=== PATIENT | male | born 1950 | race Caucasian/White ===

== ENCOUNTER 2024-08-19 06:50 | Emergency (ER) | payer OTHER, SELFPAY ==
[2024-08-19 07:03] VITALS: BP 160/68; PULSE 84; TEMP 36.7; O2SAT 96; BMI 50.9
--- NOTE | 2024-08-19 07:25 | CT_ITS ---
The [address] [address] Patient Name: JANET CRUZ MRN: [id number] date: 1950 Sex: M Assigned Patient Location: ER Current Patient Location: ED.[facility] Accession/Order Number: [id number] Exam Date: 08/19/2024 08:00 Report Date: 08/19/2024 08:43 At the request of: LAURO MORRIS Procedure: CT abdomen pelvis w con EXAM: CT abdomen pelvis w con HISTORY: LLQ pain COMPARISON: None. TECHNIQUE: Following intravenous administration of 100 cc of Omnipaque 300, axial soft tissue windows of the abdomen and pelvis were performed with coronal and sagittal reformats. CT dose reduction technique was used including Automated Exposure Control. Findings: Minimal bilateral basilar atelectasis. ABDOMEN: The liver, spleen, pancreas, and adrenal glands are unremarkable. The gallbladder is surgically absent. No renal stones or collecting system dilatation. Bilateral renal cysts. The largest is within the right kidney measuring approximately 6.1 cm. The bilateral ureters are nondilated. Evaluation of the bowel is limited given the absence of oral contrast. There are colonic diverticula. There is a short segment of sigmoid wall thickening with adjacent stranding in the fat consistent with acute diverticulitis. No abscess or microperforation. No bowel obstruction. The appendix is nondilated. The aorta is normal caliber. Mild atherosclerotic disease. No enlarged abdominal lymph nodes or free abdominal fluid. Pelvis: Circumferential bladder wall thickening likely relates to lack of effusion. No bladder calculi. No enlarged pelvic lymph nodes or free pelvic fluid. The prostate is nonenlarged. No aggressive sclerotic or lytic osseous lesions. Grade 1 anterolisthesis of L4 on L5. Mild multilevel degenerative spondylosis. CT/CT abdomen pelvis w con IMPRESSION: 1. Acute sigmoid diverticulitis. 2. Other nonemergent findings, as described above. Electronically authenticated by: ARGELIA BHARDWAJ Date: 08/19/2024 08:43
[2024-08-19] MEDS: ONDANSETRON PF 4 MG/2 ML VIAL IV (07:33)
[2024-08-19] MEDS: KETOROLAC TROMETHAMINE 30 MG/ML VIAL 15 MG IVP (07:33)
[2024-08-19 07:35] LABS: Basophils Percent Auto 0.3 % (0.2-2.0); Eosinophils Absolute Auto 0.1 10^3/uL (0.0-0.7); Eosinophils Percent Auto 0.8 % (0.9-7.0); Hematocrit 36.2 % (42.0-54.0); Hemoglobin 12.3 g/dL (14.0-18.0); Immature Granulocytes Abs Auto 0.04 10^3/uL (0.00-0.03); Immature Granulocytes Pct Auto 0.4 % (0.0-0.5); Lymphocytes Absolute Auto 0.7 10^3/uL (1.2-3.8); Lymphocytes Percent Auto 7.8 % (20.5-60.0); Mean Corpuscular Hemoglobin 30.3 pg (25.9-34.0); Mean Corpuscular Volume 89.2 fL (80.0-94.0); Mean Platelet Volume 8.8 fL (9.5-13.5); Monocytes Absolute Auto 0.7 10^3/uL (0.3-0.8); Monocytes Percent Auto 8.2 % (1.7-12.0); Neutrophils Absolute Auto 7.4 10^3/uL (1.4-6.5); Neutrophils Percent Auto 82.5 % (43.0-75.0); Platelet Count 147 10^3/uL (150-450); Red Blood Count 4.06 10^6/uL (4.70-6.10); Red Cell Distribution Width 14.2 % (11.0-15.0)
[2024-08-19 07:47] LABS: Bilirubin Urine NEGATIVE (NEGATIVE); Blood Urine NEGATIVE (NEGATIVE); Clarity Urine CLEAR (CLEAR); Color Urine LT. YELLOW (YELLOW); Glucose Urine UA NEGATIVE (NEGATIVE); Ketones Urine NEGATIVE (NEGATIVE); Leukocyte Esterase Urine SMALL (NEGATIVE); Nitrite Urine POSITIVE (NEGATIVE); Protein Urine NEGATIVE (NEG/TRACE)
[2024-08-19 07:48] LABS: Urine Microscopic Indicated YES
[2024-08-19 07:52] LABS: Alanine Aminotransferase 20 U/L (16-63); Albumin Level 3.1 g/dL (3.4-5.0); Alkaline Phosphatase 75 U/L (46-116); Anion Gap 13.9; Aspartate Amino Transferase 15 U/L (15-37); Bilirubin Total 0.7 mg/dL (0.2-1.0); Calcium 8.2 mg/dL (8.5-10.1); Chloride 107 mmol/L (98-107); Estimated GFR (African America >60 (>=60 mL/min/1.73m^2); Estimated GFR (Non-African Ame >60 (>=60 mL/min/1.73m^2); Globulin 3.1 g/dL; Glucose 119 mg/dL (74-106); Potassium 3.9 mmol/L (3.5-5.1); Sodium 146 mmol/L (136-145); Total Protein 6.2 g/dL (6.4-8.2)
[2024-08-19 07:55] LABS: RBC Urine 0-2 #/HPF (0-2)
[2024-08-19 07:56] LABS: Bacteria Urine MODERATE #/HPF (NONE SEEN); Cast Seen? NONE SEEN #/LPF (NONE SEEN); Crystals Seen? None Seen #/HPF (None Seen); Mucus Urine NONE SEEN (NONE SEEN); Squamous Epithelial Cell Urine RARE #/LPF (NONE/RARE); Urine Culture Indicated YES
[2024-08-19 08:07] LABS: INR 1.88; Prothrombin Time 18.7 sec (9.0-11.6)
[2024-08-19 08:10] VITALS: BP 144/72; PULSE 86; O2SAT 96
[2024-08-19 09:08] VITALS: BP 146/88; PULSE 72; O2SAT 98
--- NOTE | 2024-08-19 12:15 | ED.ABDPAIN1 ---
HPI - Abdominal Pain General Chief Complaint: Abdominal Pain Stated Complaint: ABD GROIN PAIN Time Seen by Provider: 08/19/24 07:08 Mode of arrival: walk-in History of Present Illness HPI narrative: Patient presents ED complaining of left lower quadrant pain. He said it started last night and he had a hard time sleeping. He states he was up all night. He said yesterday he had some loose stools and his stool seemed more pale than normal. No blood in the stool no mucus in the stool. He is on Coumadin for history of Buerger's disease and said his INR was 5 this past Sunday when they checked his Coumadin. They changed his Coumadin regimen around to decrease his INR. He has not had any bleeding. Denies any fevers. He states that the testicle area feels a little weird as if the pain is radiating down to the testicles however no swollen testicles. He does have a history of kidney stones but states this feels different than kidney stones. No flank pain. No history of diverticulitis. Related Data Home Medications ?Medication ?Instructions ?Recorded ?Confirmed cilostazol 100 mg tablet 100 mg PO DAILY 08/19/24 08/19/24 dorzolamide 2 % eye drops 2 drp ophthalmic (eye) DAILY 08/19/24 08/19/24 hydrochlorothiazide 25 mg tablet 12.5 mg PO DAILY 08/19/24 08/19/24 latanoprost 0.005 % eye drops 1 drp ophthalmic (eye) QPM 08/19/24 08/19/24 lisinopril 30 mg tablet 30 mg PO DAILY 08/19/24 08/19/24 pravastatin 80 mg tablet 80 mg PO DAILY 08/19/24 08/19/24 trazodone 100 mg tablet 200 mg PO DAILY 08/19/24 08/19/24 venlafaxine 150 mg 150 mg PO BID 08/19/24 08/19/24 capsule,extended release 24 hr (Effexor XR) warfarin 5 mg tablet 5 mg PO DAILY 08/19/24 08/19/24 Previous Rx's ?Medication ?Instructions ?Recorded ciprofloxacin HCl 500 mg tablet 500 mg PO BID 10 days #20 tabs 08/19/24 (Cipro) metronidazole 500 mg tablet 500 mg PO Q12H 10 days #20 tabs 08/19/24 Allergies Allergy/AdvReac Type Severity Reaction Status Date / Time metronidazole (From Flagyl) AdvReac Severe Rash Verified 08/19/24 07:01 Review of Systems ROS Status of ROS 10 or more systems reviewed and unremarkable except as noted in history and below PFSH PFSH Social History Little interest or pleasure in doing things: not at all Feeling down, depressed, or hopeless: not at all Exam Narrative Exam Narrative: Time Seen: [] Vital Signs: [Per nurse's notes.] General: [Alert] Skin: [Warm, dry, no rash.] Head: [Normocephalic, atraumatic.] Neck: [Supple, trachea midline.] Eye: [Pupils are equal, round and reactive to light, extraocular movements are intact, normal conjunctiva.] Ears, nose, mouth and throat: oral mucosa moist. Cardiovascular: [Regular rate and rhythm, no murmur.] Respiratory: [Lungs are clear to auscultation, respirations are non-labored, breath sounds are equal.] Chest wall: [No tenderness, no deformity.] Gastrointestinal: [Soft, moderate left lower quadrant abdominal pain. No testicular pain or swelling on exam, non distended, normal bowel sounds.] MSK: 5 out of 5 muscle strength x 4 extremities no calf pain or edema Lymphatics: [No lymphadenopathy.] Psychiatric: [Cooperative, appropriate mood & affect.] Neurological: [Alert and oriented to person, place, time, and situation, no focal neurological deficit observed.] Constitutional Vital Signs, click to edit/add: Last Vital Signs Temp 98.1 F 08/19/24 07:03 Pulse 72 08/19/24 09:08 Resp 18 08/19/24 09:08 BP 146/88 H 08/19/24 09:08 Pulse Ox 98 08/19/24 09:08 O2 Del Method Room Air 08/19/24 07:03 Course Vital Signs Vital signs: Vital Signs Temperature 98.1 F 08/19/24 07:03 Pulse Rate 84 08/19/24 07:03 Respiratory Rate 18 08/19/24 07:03 Blood Pressure 160/68 H 08/19/24 07:03 Pulse Oximetry 96 08/19/24 07:03 Oxygen Delivery Method Room Air 08/19/24 07:03 Temperature 98.1 F 08/19/24 07:03 Pulse Rate 72 08/19/24 09:08 Respiratory Rate 18 08/19/24 09:08 Blood Pressure 146/88 H 08/19/24 09:08 Pulse Oximetry 98 08/19/24 09:08 Oxygen Delivery Method Room Air 08/19/24 07:03 MDM - Abdominal Pain MDM Narrative Medical decision making narrative: Patient's labs are relatively nonacute CT scan shows acute uncomplicated diverticulitis. No abscess no perforation. I discussed with pharmacist and with Dr. Ware antibiotic use given the fact that his INR has been labile recently. Since he has a Coumadin check on and will see Dr. Ware on or Sunday we decided to go with Bakari and Tiara at this time. I did tell the patient this can increase his INR and to please be very aware of any stool color changes or bleeding. Return to the emergency room if unable to keep the antibiotics down, if the pain is increasing too much or if he has bleeding. Follow-up on for his Coumadin check and see Dr. Ware or Sunday for a reevaluation. Patient and family are comfortable with care plan and will return to ED if worsening symptoms otherwise they will follow-up outpatient as scheduled. Differential Diagnosis Differential diagnosis: Likely abdominal pain, calculus of kidney, constipation, diverticulitis and small bowel obstruction Medical Records Attestation: I reviewed the patient's medical records. Lab Data Attestation: I reviewed the patient's lab results. Labs: Lab Results 08/19/24 08/19/24 08/19/24 Range/Units 07:10 07:28 07:50 WBC 9.0 (4.0-11.0) 10^3/uL RBC 4.06 L (4.70-6.10) 10^6/uL Hgb 12.3 L (14.0-18.0) g/dL Hct 36.2 L (42.0-54.0) % MCV 89.2 (80.0-94.0) fL MCH 30.3 (25.9-34.0) pg MCHC 34.0 (29.9-35.2) g/dL RDW 14.2 (11.0-15.0) % Plt Count 147 L (150-450) 10^3/uL MPV 8.8 L (9.5-13.5) fL Neut % (Auto) 82.5 H (43.0-75.0) % Lymph % (Auto) 7.8 L (20.5-60.0) % [place] % (Auto) 8.2 (1.7-12.0) % Eos % (Auto) 0.8 L (0.9-7.0) % Baso % (Auto) 0.3 (0.2-2.0) % Neut # (Auto) 7.4 H (1.4-6.5) 10^3/uL Lymph # (Auto) 0.7 L (1.2-3.8) 10^3/uL [place] # (Auto) 0.7 (0.3-0.8) 10^3/uL Eos # (Auto) 0.1 (0.0-0.7) 10^3/uL Baso # (Auto) 0.0 (0.0-0.1) 10^3/uL Abs Immat Gran (auto) 0.04 H (0.00-0.03) 10^3/uL Imm/Tot Granulo (auto) 0.4 (0.0-0.5) % PT 18.7 H (9.0-11.6) sec INR 1.88 Sodium 146 H (136-145) mmol/L Potassium 3.9 (3.5-5.1) mmol/L Chloride 107 (98-107) mmol/L Carbon Dioxide 29.0 (21.0-32.0) mmol/L Anion Gap 13.9 BUN 16.0 (7.0-18.0) mg/dL Creatinine 0.94 (0.70-1.30) mg/dL Est GFR ( Amer) >60 (>=60 mL/min/1.73m^2) Est GFR (Non-Af Amer) >60 (>=60 mL/min/1.73m^2) BUN/Creatinine Ratio 17.0 Glucose 119 H (74-106) mg/dL Calcium 8.2 L (8.5-10.1) mg/dL Total Bilirubin 0.7 (0.2-1.0) mg/dL AST 15 (15-37) U/L ALT 20 (16-63) U/L Alkaline Phosphatase 75 (46-116) U/L Total Protein 6.2 L (6.4-8.2) g/dL Albumin 3.1 L (3.4-5.0) g/dL Globulin 3.1 g/dL Albumin/Globulin Ratio 1.0 Urine Color Lt. yellow (YELLOW) Urine Clarity Clear (CLEAR) Urine pH 6.0 (5.0-9.0) Ur Specific [place] 1.020 (1.005-1.025) Urine Protein Negative (NEG/TRACE) mg/dL Urine Glucose (UA) Negative (NEGATIVE) mg/dL Urine Ketones Negative (NEGATIVE) mg/dL Urine Occult Blood Negative (NEGATIVE) Urine Nitrite Positive A (NEGATIVE) Urine Bilirubin Negative (NEGATIVE) Urine Urobilinogen 4.0 A (0.2-1.0) EU/dL Ur Leukocyte Esterase Small A (NEGATIVE) Urine RBC 0-2 (0-2) #/HPF Urine WBC 5-10 A (NONE SEEN) #/HPF Ur Squamous Epith Cells Rare (NONE/RARE) #/LPF Urine Crystals None seen (None Seen) #/HPF Urine Bacteria Moderate A (NONE SEEN) #/HPF Urine Casts None seen (NONE SEEN) #/LPF Urine Mucus None seen (NONE SEEN) Ur Culture Indicated? Yes Imaging Data CT scan - abdomen: Radiologist's impression: ITS Impressions Abdomen/Pelvis CT 08/19/24 07:25 IMPRESSION: 1. Acute sigmoid diverticulitis. 2. Other nonemergent findings, as described above. Electronically authenticated by: ARGELIA BHARDWAJ Date: 08/19/2024 08:43 Discharge Plan Discharge Chief Complaint: Abdominal Pain Clinical Impression: Diverticulitis, Acute UTI Patient Disposition: Home, Self-Care Time of Disposition Decision: 08:57 Condition: Fair Mode of Transportation: Private Vehicle Prescriptions / Home Meds: New ciprofloxacin HCl [Cipro] 500 mg tablet 500 mg PO BID 10 Days Qty: 20 0RF metronidazole 500 mg tablet 500 mg PO Q12H 10 Days Qty: 20 0RF No Action venlafaxine [Effexor XR] 150 mg capsule,extended release 24hr 150 mg PO BID pravastatin 80 mg tablet 80 mg PO DAILY cilostazol 100 mg tablet 100 mg PO DAILY lisinopril 30 mg tablet 30 mg PO DAILY hydrochlorothiazide 25 mg tablet 12.5 mg PO DAILY trazodone 100 mg tablet 200 mg PO DAILY dorzolamide 2 % drops 2 drp ophthalmic (eye) DAILY latanoprost 0.005 % drops 1 drp ophthalmic (eye) QPM warfarin 5 mg tablet 5 mg PO DAILY Print Language: Chinese Instructions: Diverticulitis (ED), Diverticulitis Diet (ED) Referrals: Jasper Ware MD [Primary Care Provider] - 1 week Discharge Date/Time: 08/19/24 09:09
== END 2024-08-19 09:09 | disposition home or self-care (01) ==
PROVIDERS: Emergency Provider Emergency Medicine; PCP Family Medicine
DX: N39.0 Urinary tract infection, site not specified (principal); K57.32 Diverticulitis of large intestine without perforation or abscess without bleeding; Z79.01 Long term (current) use of anticoagulants; N02.B1 Recurrent and persistent immunoglobulin A nephropathy with glomerular lesion; Z87.442 Personal history of urinary calculi
CPT/HCPCS: 36415; 74177; 80053; 81001; 85025; 85610; 87086; 87150; 87186; 96374; 96375; 99284; J1885; J2405; Q9967

== ENCOUNTER 2024-09-05 20:46 | Emergency (ER) | payer OTHER, SELFPAY ==
--- OUTSIDE RECORDS SUMMARY | 2024-09-05 20:52 | XMS_ITS | CCD ---
Author Organization [facility] Care Team Providers Care Coating Machine Helper Name Role Phone BROOKLYN LÓPEZ Admitting Unavailable BROOKLYN LÓPEZ Attending Unavailable ANNA WARE Primary Care Unavailable Anna Ware Primary Care Provider [phone] Jaki Cardoso Primary Care Physician Unavailab le GRANT ., DR CASTILLO Primary Care Unavailable HOY ., DR CASTILLO Admitting Unavailable HOY ., DR CASTILLO Attending Unavailable HOY ., DR CASTILLO Consulting Unavailable PAY ., DR LEYVA Consulting Unavailable SHAIKH Rick LOPEZ Consulting Unavailable JANET YARBROUGH Consulting Unavailable Karina Oneal Attending Unavailable SALAM, Azeem Attending Unavailable SALAM, Azeem Admitting Unavailable SALAM, Azeem Referring Unavailable SALAM, Azeem Attending Unavailable SALAM, Azeem Admitting Unavailable SALAM, Azeem Referring Unavailable SALAM, Azeem Attending Unavailable SALAM, Gann Admitting Unavailable SALAM, Gann Referring Unavailable Karina Oneal Attending Unavailable Karina Oneal Attending Unavailable Allergies Allergy Classification Reported Allergen(s) Allergy Type Date of Onset Reaction(s) Facility (2 sources) Adhesive Tape; Translations: [Adhesive tape] Propensity to adverse reactions to drug 9 Rash [place] (5 sources) metroNIDAZOLE; Translations: [metronidazole] Drug Allergy 9 Rash, Unknown (qualifier value) [place] (5 sources) Adhesive bandage; Translations: [Adhesive Bandage] Allergy to substance 9 Eruption of skin (disorder) [facility] (5 sources) cefOXitin; Translations: [cefoxitin] Drug Allergy Low blood pressure (disorder) [facility] (5 sources) Mushroom (edible); Translations: [Mushrooms] Food allergy Nasal congestion (finding) [facility] (2 sources) metroNIDAZOLE; Translations: [Flagyl] Drug Allergy 1 [facility] Repository Medications Current Medications Medication Drug Class(es) Dates Sig (Normalized) Sig (Original) Acetaminophen (4 sources) Start: 08-18-2022 acetaminophen PRN as needed for pain, Refills(s) 0 Start Date: 08/18/22 Status: Ordered Start: 08-18-2022 acetaminophen Refills(s) 0 Start Date: 08/18/22 Status: Ordered Acetaminophen / oxyCODONE (1 source) Opioid Agonist Start: 06-19-2019 End: 06-19-2019 oxyCODONE-acetaminophen (PERCOCET) 5-325 MG per tablet 1 tablet Amlodipine (5 sources) Dihydropyridine Calcium Channel Jeison Start: 08-18-2022 amlodipine Refills(s) 0, High blood pressure Start Date: 08/18/22 Status: Ordered Start: 08-18-2022 amlodipine Ref ills(s) 0 Start Date: 08/18/22 Status: Ordered End: 06-18-2019 take 1 tablet by mouth once daily amLODIPine (NORVASC) 10 MG tablet Take 10 mg by mouth daily 0 06/18/2019 Discontinued (Therapy completed) calcium chloride 0.0014 meq/ml / potassium chloride 0.004 meq/ml / sodium chloride 0.103 meq/ml / sodium lactate 0.028 meq/ml injectable solution (1 source) Start: 06-19-2019 lactated ringers infusion Cetirizine (1 source) Histamine-1 Receptor Antagonist take 1 tablet by mouth once daily as needed Cetirizine HCl (ZYRTEC PO) Take 1 tablet by mouth daily as needed 0 Active Cholecalciferol (1 source) Vitamin D take 1 tablet by mouth once daily CHOLECALCIFEROL PO Take 1 tablet by mouth daily 0 Active cilostazol (5 sources) Phosphodiesterase 3 Inhibitor Start: 08-18-2022 cilostazol Oral, BID, Refills(s) 0, Other (see comment) Start Date: 08/18/22 Status: Ordered Start: 08-18-2022 cilostazol Ref ills(s) 0 Start Date: 08/18/22 Status: Ordered take 1 tablet by gris once daily CILOSTAZOL PO Take 1 tablet by mouth daily 0 Active 1 ml diphenhydrAMINE hydrochloride 50 mg/ml cartridge (1 source) Histamine-1 Receptor Antagonist Start: 06-19-2019 End: 06-19-2019 diphenhydrAMINE (BENADRYL) injection 12.5 mg dorzolamide 20 mg/ml ophthalmic solution (1 source) Carbonic Anhydrase Inhibitor take 1 drop(s) into the eye(s) twice daily dorzolamide (TRUSOPT) 2 % ophthalmic solution Place 1 drop into both eyes 2 times daily 0 Active dorzolamide / Timolol (4 sources) Carbonic Anhydrase Inhibitor, beta-Adrenergic Jeison Start: 08-18-2022 dorzolamide-timolol ophthalmic Refill(s) 0, Ocular congestion Start Date: 08/18/22 Status: Ordered Start: 08-18-2022 dorzolamide-ti molol ophthalmic Refill(s) 0 Start Date: 08/18/22 Status: Ordered 2 ml fentaNYL 0.05 mg/ml injection (1 source) Opioid Agonist Start: 06-19-2019 fentaNYL (SUBL IMAZE) injection 25 mcg fondaparinux (4 sources) Factor Xa Inhibitor Start: 08-18-2022 fondaparin ux SubCutaneous, Daily, Refills(s) 0, Blood Thinner Start Date: 08/18/22 Status: Ordered Start: 08-18-2022 fondaparinux R efills(s) 0, Blood Thinner Start Date: 08/18/22 Status: Ordered Start: 08-18-2022 fondaparinux R efills(s) 0 Start Date: 08/18/22 Status: Ordered hydroCHLOROthiazide (4 sources) Thiazide Diuretic Start: 08-18-2022 hydrochlorot hiazide Refills(s) 0, High blood pressure Start Date: 08/18/22 Status: Ordered Start: 08-18-2022 hydrochlorothi azide Refills(s) 0 Start Date: 08/18/22 Status: Ordered 4 ml labetalol hydrochloride 5 mg/ml cartridge (1 source) beta-Adrenergic Jeison Start: 06-19-2019 labetalol (NORMODYNE;TRANDATE) injection 5 mg latanoprost (5 sources) Prostaglandin Analog Start: 08-18-2022 latanoprost ophthalmic Refill(s) 0, Ocular congestion Start Date: 08/18/22 Status: Ordered Start: 08-18-2022 latanoprost op hthalmic Refill(s) 0 Start Date: 08/18/22 Status: Ordered take 1 drop(s) into the eye(s) once daily latanoprost (XALATAN) 0.005 % ophthalmic solution Place 1 drop into both eyes nightly 0 Active Lisinopril (5 sources) Angiotensin Converting Enzyme Inhibitor Start: 08-18-2022 lisinopril Refills(s ) 0, High blood pressure Start Date: 08/18/22 Status: Ordered Start: 08-18-2022 lisinopril Ref ills(s) 0 Start Date: 08/18/22 Status: Ordered take 3 tablets by mo uth once daily lisinopril (PRINIVIL;ZESTRIL) 10 MG tablet Take 30 mg by mouth daily 0 Active 1 ml morphine sulfate 2 mg/ml cartridge (1 source) Opioid Agonist Start: 06-19-2019 morphine (PF) injection 2 mg 2 ml ondansetron 2 mg/ml injection (1 source) Serotonin-3 Receptor Antagonist Start: 06-19-2019 End: 06-19-2019 ondansetron (ZOFRAN) injection 4 mg polyethylene glycol 3350 [id number] mg / potassium chloride 1480 mg / sodium bicarbonate 5720 mg / sodium chloride 85676 mg powder for oral solution (1 source) Osmotic Laxative Start: 02-12-2023 NuLYTELY Yandy ry oral powder for reconstitution See Instructions, 2 EA, Refill(s) 0, See physician instructions prior to procedure., [facility], 170.1, cm, 01/29/23 9:08:00 EDT, Height/Length Dosing, 149.7, kg, 01/29/23 9:08:00 EDT, Weight Dosing Start Date: 02/12/23 Status: Ordered Pravastatin (5 sources) HMG-CoA Reductase Inhibitor Start: 08-18-2022 pravastatin Refills( s) 0, High cholesterol Start Date: 08/18/22 Status: Ordered Start: 08-18-2022 pravastatin Re fills(s) 0 Start Date: 08/18/22 Status: Ordered take 1 tablet by gris once daily PRAVASTATIN SODIUM PO Take 1 tablet by mouth daily 0 Active Trazodone (5 sources) Serotonin Reuptake Inhibitor Start: 08-18-2022 trazodone PRN Sleep, Refills(s) 0 Start Date: 08/18/22 Status: Ordered Start: 08-18-2022 trazodone Refi lls(s) 0 Start Date: 08/18/22 Status: Ordered traZODone (DESYR EL) 100 MG tablet Take 250 mg by mouth nightly 0 Active venlafaxine (5 sources) Serotonin and Norepinephrine Reuptake Inhibitor Start: 08-18-2022 venlafaxine Refills( s) 0, Depression Start Date: 08/18/22 Status: Ordered Start: 08-18-2022 venlafaxine Re fills(s) 0 Start Date: 08/18/22 Status: Ordered take 2 capsules by m outh once daily venlafaxine (EFFEXOR XR) 150 MG extended release capsule Take 300 mg by mouth daily 0 Active Warfarin (6 sources) Vitamin K Antagonist Start: 08-18-2022 warfarin Refills(s) 0, Blood Thinner Start Date: 08/18/22 Status: Ordered Start: 08-18-2022 warfarin Refil ls(s) 0 Start Date: 08/18/22 Status: Ordered warfarin (COUMAD IN) 10 MG tablet Take 12.5 mg by mouth daily tues only holding holdinh 06/17 0 Active take 2 tablets by pr uth once daily, then take [id number] tablet by mouth warfarin (COUMADIN) 7.5 MG tablet Take 15 mg by mouth daily All days except tues,holding preop since 06/18 0 Active Completed/Discontinued Medications Medication Drug Class(es) Dates Sig (Normalized) Sig (Original) cyclopentolate hydrochloride 10 mg/ml ophthalmic solution (1 source) Start: 06-19-2019 End: 06-19-2019 cyclopentolate (CYCLOGYL) 1 % ophthalmic solution 1 drop dexamethasone 1 mg/ml / tobramycin 3 mg/ml ophthalmic suspension (1 source) Aminoglycoside Antibacterial, Corticosteroid Start: 06-19-2019 End: 06-19-2019 tobramycin-dexameth asone (TOBRADEX) ophthalmic suspension 1 drop phenylephrine hydrochloride 100 mg/ml ophthalmic solution (1 source) alpha-1 Adrenergic Agonist Start: 06-19-2019 End: 06-19-2019 phenylephrine (ROLY-SYNEPHRINE) 10 % ophthalmic solution 1 drop Problems Active Problems Problem Classification Problem Date Documented Da te Episodic/Chronic Abdominal pain (4 sources) Abdominal pain 09-27-2022 Episodic Anxiety disorders (4 sources) Posttraumatic stress disorder 09-27-2022 Chronic Bacterial infection; unspecified site (1 source) Unspecified Escherichia coli [E. coli] as the cause of diseases classified elsewhere; Translations: [UNS E COLI CAUSE DX CLASS ELSEWHERE] Onset: 2022 Episodic Coagulation and hemorrhagic disorders (1 source) Activated protein C resistance; Translations: [ACTIVATED PROTEIN C RESISTANCE] Onset: 2022 Chronic Disorders of lipid metabolism (4 sources) Hyperlipidemia 09-27-2022 Chronic Diverticulosis and diverticulitis (4 sources) Diverticular disease 09-27-2022 Chronic Essential hypertension (5 sources) Hypertensive disorder; Translations: [Essential (primary) hypertension] Onset: 2022 09-27-2022 Chronic Hyperplasia of prostate (4 sources) Urinary urgency due to benign prostatic hypertrophy 09-27-2022 Chronic Other aftercare (1 source) Other long term care phlebotomist (current) drug therapy; Translations: [OTH LONG-TERM CURRENT DRUG THERAPY] Onset: 2022 Episodic Other aftercare (1 source) 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; Translations: [LONG-TERM CURRNT USE ANTICOAGULANTS] Onset: 2022 Episodic Other and unspecified benign neoplasm (6 sources) History of polyp of colon; Translations: [Personal history of colonic polyps] Onset: 11-10-2022 Episodic Other and unspecified benign neoplasm (1 source) Polyp of colon; Translations: [Polyp of colon] Onset: 04-23-2023 Episodic Other circulatory disease (4 sources) Thromboangiitis obliterans 09-27-2022 Chronic Other circulatory disease (4 sources) Vascular insufficiency 09-27-2022 Episodic Other gastrointestinal disorders (4 sources) Adhesion of intestine 09-27-2022 Episodic Other nervous system disorders (1 source) Difficulty in walking, not elsewhere classified; Translations: [DIFFICULTY IN WALKING NEC] Onset: 2022 Chronic Other nervous system disorders (1 source) Other chronic pain; Translations: [OTHER CHRONIC PAIN] Onset: 2022 Chronic Other nervous system disorders (4 sources) Abnormal gait 09-27-2022 Episodic Other nutritional; endocrine; and metabolic disorders (4 sources) Morbid obesity 09-27-2022 Chronic Other nutritional; endocrine; and metabolic disorders (1 source) Morbid (severe) obesity due to excess calories; Translations: [MORBID SEVERE OBES D/T EXCESS LYNN] Onset: 2022 Chronic Other nutritional; endocrine; and metabolic disorders (1 source) Body mass index (BMI) 45.0-49.9, adult; Translations: [BODY MASS INDEX BMI 45.0-49.9 ADULT] Onset: 2022 Chronic Residual codes; unclassified (4 sources) Sleep apnea 09-27-2022 Chronic Screening and history of mental health and substance abuse codes (1 source) Personal history of nicotine dependence; Translations: [PERSONAL HISTORY OF NICOTINE DEPEND] Onset: 2022 Episodic Unclassified (4 sources) Binge eating behavior 09-27-2022 Unclassified (3 sources) LOW BACK PAIN, UNSPECIFIED; Translations: [LOW BACK PAIN, UNSPECIFIED] Onset: 2022 Unclassified (1 source) CONTACT W/AND (SUSP) EXPOS COVID-19; Translations: [CONTACT W/AND (SUSP) EXPOS COVID-19] Onset: 2022 Urinary tract infections (1 source) Urinary tract infection, site not specified; Translations: [UTI SITE NOT SPECIFIED] Onset: 2022 Episodic Past or Other Problems Problem Classification Problem Date Documented Date Episodic/Chronic Retinal detachments; defects; vascular occlusion; and retinopathy (1 source) Rhegmatogenous retinal detachment - macula on; Translations: [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, left] Onset: 06-19-2019 06-19-2019 Episodic Unclassified (1 source) LOW BACK PAIN, UNSPECIFIED; Translations: [LOW BACK PAIN, UNSPECIFIED] Onset: 11-03-2022 Unclassified (1 source) Exposure to 2019 novel coronavirus; Translations: [Contact with and (suspected) exposure to COVID19] Results Test Name Value Interpretation Reference Range Facility IntraOperative Documentson 0 04-27-2023 IntraOperative Documents [id number] CD:127 [facility] Reminderson 04-27-2023 Reminders - From: Obey Zafar To: [facility] - Reminders/Recalls; Sent: 04/27/2023 09:59:23 EDT Show up: 04/07/2026 09:59:00 EDT Subject: Ambulatory Reminder Due Date/Time: 04/23/2026 09:59:00 EDT Reminder/Recall Repeat colonoscopy in 3 years(2025) due to tubular adenoma [facility] Result Letter Officeon 04-27 Result Letter Office (Inserted Image. Un able to display) April 27, 2023 JANET CRUZ [address] [place] [id number] : 1950 Below is a summary of the results of your recent colonoscopy. Your results have been sent to your primary care provider along with recommendations on when the procedure should be repeated. COLONOSCOPY WITH POLYP REMOVAL Type of polyp tubular adenoma x 1 - not cancer but can become cancer if not removed. Additional colonoscopies will be necessary to monitor your condition and assure that new polyps have not developed. multiple lipomas in the transverse and ascending colon Based on your results we are recommending you repeat the procedure in 3 years You will be placed in our reminder system and will receive a reminder letter prior to your next due date. [facility] [phone] Normal [facility] Consenton 04-25-2023 Consent [id number] D:127 Normal [facility] Discharge Instructionson Discharge Instructions [id number] D:127 Normal [facility] Main OR Intraoperative Recor don 04-24-2023 Main OR Intraoperative Record IntraOp Document Type FT Summary Primary Physician: Azeem HARPER MD Finalized Date/Time: 04/24/23 07:14:24 Pt. Name: JANET CRUZ D.O.B./Sex: 1950 Male Med Rec #: [id number] Physician: Azeem HARPER MD Financial #: [id number] Pt. Type: O Room/Bed: Endo 03/08 Admit/Disch: 04/23/23 00:01:00 - 04/23/23 11:25:00 Institution: Case Times FT Entry 1 Patient Times In Room 04/23/23 10:35:00 Out Room 04/23/23 10:54:00 Procedure Times Start 04/23/23 10:39:00 Stop 04/23/23 10:52:00 Anesthesia Times Start 04/23/23 10:35:00 Stop 04/23/23 10:54:00 Time at [facility] 04/23/23 10:45:00 Last Modified By: Lexii Sims CST 04/24/23 07:14:22 General Comments: 04/24/23 Chart opened to review and send charges LRoth CSFA Case Attendance FT Entry 1 Entry 2 Entry 3 Case Attendee Paul VEGA, Stephanie Gan, Ileana Prado Role Performed Retail Event Assistant - Primary Scrub - Primary Staff - Other Time In 04/23/23 10:35:00 04/23/23 10:35:00 04/23/23 10:35:00 Time Out 04/23/23 10:55:00 04/23/23 10:55:00 04/23/23 10:55:00 Procedure COLONOSCOPY(.) COLONOSCOPY(.) COLONOSCOPY(.) Comments Last Modified By: Paul VEGA, Stephanie Miller RN, Stephanie Evangelista RN 04/23/23 10:55:23 04/23/23 10:55:23 04/23/23 10:55:23 Entry 4 Entry 5 Entry 6 Case Attendee MEREDITH POE, Azeem Arcos WIRE SPIRAL BINDER, Malena Hutchins DNP, WIRE SPIRAL BINDER, Mejia N. Role Performed Surgeon - Primary WIRE SPIRAL BINDER WIRE SPIRAL BINDER Time In 04/23/23 10:35:00 04/23/23 10:35:00 04/23/23 10:40:00 Time Out 04/23/23 10:55:00 04/23/23 10:42:00 04/23/23 10:55:00 Procedure COLONOSCOPY(.) COLONOSCOPY(.) COLONOSCOPY(.) Comments Dr. Garcia is Anesthesia relief, Dr. summersing Jose is supervising Last Modified By: Paul VEGA, Stephanie Miller RN, Lexii Hope CST 04/23/23 10:55:23 04/23/23 10:55:23 04/24/23 07:12:52 Perioperative Protocols FT Pre-Care Text: Implements protective measures prior to operative or invasive procedure, confirms identity before the operative or invasive procedure, verifies operative procedure, surgical site, and laterality Entry 1 Procedure(s) COLONOSCOPY(.) Patient Identity Birthday, ID Band Verified (select at Check, Patient least 2): Participation Consents / H and P Anesthesia Consent, Operative Site N/A Verified HandP, Surgery/Procedure Marking Verified Consent Surgical Site No Laterality Verified n/a Verified Procedure Verified Yes Correct Patient Yes Position Verified Availability Equipment, Medication Prep Dry No Verified (If Applicable) PreOp Antibiotic No Time Out Stephanie Miller RN, Given Participants Divya Gan Sparks, Micala E, Azeem HARPER MD, Deppen CRNA, Denise S. Time Out Complete 04/23/23 10:37:00 Outcomes Met? Yes Last Modified By: Stephanie Miller RN 04/23/23 10:37:52 Post-Care Text: The patient is free from signs and symptoms of injury caused by extraneous objects Allergy Information FT Pre-Care Text: Verifies allergies Entry 1 Allergies Reviewed? Yes Allergies Reviewed Self/Patient With Outcomes Met? Yes Last Modified By: Stephanie Miller RN 04/23/23 10:38:05 Post-Care Text: The patient received appropriate medication(s) safely administered during the perioperative period Surgical Procedures FT Entry 1 Procedure Description Procedure COLONOSCOPY Modifiers . Surgeon Description Colonoscopy with rectal polyp injected with everlift and removed with hot snare. X2 hemmoclips applied to post rectal polypectomy site. Primary Procedure Yes Primary Surgeon Azeem HARPER MD Start 04/23/23 10:39:00 Stop 04/23/23 10:52:00 Anesthesia Type General Surgical Service Gastroenterology Wound Class 2 - Clean-Contaminated Last Modified By: Lexii Sims CST 04/24/23 07:13:10 General Case Data FT Pre-Care Text: Classifies surgical wound, implements aseptic technique, initiates traffic control Entry 1 Case Information OR ENDO 1 FT Case Level Level 2 Wound Class 2 - Clean-Contaminated Specialty Gastroenterology ASA Class 3 Preop Diagnosis History of colon polyps Postop Same As Preop No Postop Diagnosis Ascending colon lipoma, Outcomes Met? Yes transverse colon lipoma, rectal polyp, internal hemorrhoids Last Modified By: Stephanie Miller RN 04/23/23 10:52:36 Post-Care Text: The patient is free from signs and symptoms of infection Skin Assessment (Pre Procedure) FT Pre-Care Text: Implements protective measures to prevent skin/ tissue injury due to thermal or mechanical sources Evaluates for signs and symptoms of physical injury to skin and tissue Entry 1 Skin Integrity Intact, [place], Warm, and Skin Abnormality No Dry Outcomes Met? Yes Last Modified By: Stephanie Miller RN 04/23/23 10:38:44 Post-Care Text: The patient is free from signs and symptoms of injury caused by extraneous objects Patient Positioning FT Pre-Care Text: Identifies physical alterations that require ad (more content not included)... Normal [facility] Consent for Treatmenton 04-07 Consent for Treatment [id number] D:127 Normal [facility] Discharge Instructionson Discharge Instructions NANCY JANET :1950 Visit Date:04/23/2023 Inpatient Discharge Instructions Your Care Team Admitting Physician - Azeem HARPER MD Referring Physician - Azeem HARPER MD Reason for Your Visit HX OF COLON POLYPS Your Diagnosis Colon polyp Tests Performed Pathology Tissue Exam -- Results Pending -- Please visit your patient portal for your results or contact your primary care physician. This Is Your Medications List acetaminophen amlodipine cilostazol dorzolamide-timolol ophthalmic fondaparinux hydrochlorothiazide latanoprost ophthalmic lisinopril pravastatin trazodone venlafaxine warfarin Procedure History Colonoscopy (01/29/2023), Colonoscopy. Discharge Vitals Temperature (Temporal Artery) 36.6 ?C Heart Rate (Monitored) 71 Respiratory Rate 23 Blood Pressure 126/77 Height 170.1 cm Weight 149.7 kg What to do next Instructions From Your Doctor Event Name Event Result Discharge Instructions Freetext Resume Coumadin and bridging treatment today Discharge Activity Resume normal activities in 24 hours Discharge Restrictions No driving for 24 hrs, Do not operate machinery or tools, Do not make important decisions for 24 hours Discharge Diet(s) Regular Pharmacy Information [facility] Discharge Instructions Discharge Instructions New Follow Up Appointments after Discharge Follow Up with Azeem HARPER When: Within 1 to 2 weeks Comments: Call for any problems. Where: [address] [place] [address] [employer] (1) Medications What How Much When Instructions Next Dose Unchanged acetaminophen As needed for as needed for pain Unchanged amlodipine Unchanged cilostazol 2 times a day Unchanged dorzolamide-timolol ophthalmic Unchanged fondaparinux Every day Unchanged hydrochlorothiazide Unchanged latanoprost ophthalmic Unchanged lisinopril Unchanged pravastatin Unchanged trazodone As needed for Sleep Unchanged venlafaxine Unchanged warfarin Test Results No qualifying data available. Allergies Adhesive Bandage (Eruption) Flagyl (Unknown) Mushrooms (Nasal congestion) cefOXitin (Hypotension) Problems Ongoing - Any problem that you are currently receiving treatment for. Abdominal pain in male Adhesion of intestine Benign prostatic hyperplasia (BPH) with urinary urgency Binge eating Diverticulosis History of amputation of hallux History of colon polyps HLD (hyperlipidemia) HTN (hypertension) Morbid obesity PTSD (post-traumatic stress disorder) Sleep apnea Thromboangiitis obliterans Unsteady gait Venous insufficiency Devices Implanted/Removed This Visit Notice: You have devices implanted this visit that may not be MRI compatible. Implanted Undefined Procedure Body Site Undefined CAUTERY ERBE UNIT 04/23/2023 Education Materials Lipoma A lipoma is a noncancerous (benign) tumor that is made up of fat cells. This is a very common type of soft-tissue growth. Lipomas are usually found under the skin (subcutaneous). They may occur in any tissue of the body that contains fat. Common areas for lipomas to appear include the back, arms, shoulders, buttocks, and thighs. Lipomas grow slowly, and they are usually painless. Most lipomas do not cause problems and do not require treatment. What are the causes? The cause of this condition is not known. What increases the risk? You are more likely to develop this condition if: ? You are 40?60 years old. ? You have a family history of lipomas. What are the signs or symptoms? A lipoma usually appears as a small, round bump under the skin. In most cases, the lump will: ? Feel soft or rubbery. ? Not cause pain or other symptoms. However, if a lipoma is located in an area where it pushes on nerves, it can become painful or cause other symptoms. How is this diagnosed? A lipoma can usually be diagnosed with a physical exam. You may also have tests to confirm the diagnosis and to rule out other conditions. Tests may include: ? Imaging tests, such as a CT scan or an MRI. ? Removal of a tissue sample to be looked at under a microscope (biopsy). How is this treated? Treatment for this condition depends on the size of the lipoma and whether it is causing any symptoms. ? For small lipomas that are not causing problems, no treatment is needed. ? If a lipoma is bigger or it causes problems, surgery may be done to remove the lipoma. Lipomas can also be removed to improve appearance. Most often, the procedure is done after applying a medicine that numbs the area (local anesthetic). ? Liposuction may be done to reduce the size of the lipoma before it is removed through surgery, or it may be done to remove the lipoma. Lipomas are removed with this method to limit incision size and scarring. A liposuction tube is inserted through (more content not included)... [facility] Comment on above: Result Comment: Elec tronically Signed By: Eulogio VEGA, Yari\.br\Date and Time Signed: 04/23/23 11:03 EDT Endoscopic Procedure Report - Otheron 04-23-2023 Endoscopic Procedure Report - Other Patient: JANET CRUZ Age: 72 years Sex: Male : 1950 Associated Diagnoses: None Author: Azeem HARPER MD Pre-Procedure Procedure Date 04/23/2023 10:54:00 . Procedure Type: Colonoscopy with removal of tumor(s), polyp(s), or other lesion(s) by cold snare technique. Procedure provider Performed by Azeem Harper MD. Current history and physical Documented on chart. Colorectal neoplasm risk assessment Average risk. Informed Consent After discussing the rationale, risks and benefits, and alternatives to this procedure, the patient provided signed consent for the procedure. Pre-procedure diagnosis: History of colon polyps. Medications Anticoagulant/antiplate let Coumadine . ASA Classification: Class III. . Procedure The procedure was performed in the hospital. Rectal exam was performed and was normal with no masses palpated. The patient was positioned in the left lateral decubitus position and a digital rectal exam was performed.. Endoscope type used was an adult-size. The endoscope was lubricated then introduced through the anus. The scope was advanced to the cecum verified by photographing the appendiceal orifice, verified by photographing the ileocecal valve, verified by transillumination, The time to the cecum was 6 minutes, The withdrawal time was 7 minutes. No difficulties encountered during the procedure. The bowel preparation quality was adequate (see polyps greater than or equal to 6 millimeters). The patient tolerated the procedure well. Findings 1. Multiple lipomas in the ascending and transverse colon 2. Flat polyp, 3 mm, in the rectum, removed completely with hot snare after submucosal lifting, 2 clips placed at polypectomy site 3 very small nonbleeding internal hemorrhoids Images Procedure images: [email or web address]_[email or web address]__[id number].jpg [id number]_hd_video__1 [id number].jpg [id number]_hd_video__1 [id number].jpg Rec1_hd_video__1 [id number].jpg . Post-Procedure Complications: none. Estimated blood loss: none. Specimens: sent to pathology. Devices/ implants: none left in place. Impression and Plan 1. Multiple lipomas in the ascending and transverse colon 2. Flat polyp, 3 mm, in the rectum, removed completely with hot snare after submucosal lifting, 2 clips placed at polypectomy site 3 very small nonbleeding internal hemorrhoids Recommendations: Repeat colonoscopy:: In 3 years, Pending pathology results. Follow-up:: Clinic follow-up in 1-2 weeks. Diet:: Resume previous diet. Medication resumption:: Continue current medications. Return to activities:: After 24 hours. [facility] Comment on above: Result Comment: Elec tronically Signed By: MEREDITH POE, Azeem\.br\Date and Time Signed: 04/23/23 10:56 EDT Other Comment: Mariza horn Attachment - attachment storage system not supported [id number] Can be viewed in source systemMissing Attachment - attachment storage system not supported [id number] Can be viewed in source systemMissing Attachment - attachment storage system not supported [id number] Can be viewed in source systemMissing Attachment - attachment storage system not supported [id number] Can be viewed in source system Main OR PACU I Recordon 04-07 Main OR PACU I Record PACU Phase I Document Type FT Summary Primary Physician: Azeem HARPER MD Finalized Date/Time: 04/23/23 12:03:47 Pt. Name: NANCYJANET D.O.B./Sex: 1950 Male Med Rec #: [id number] Physician: Azeem HARPER MD Financial #: [id number] Pt. Type: O Room/Bed: [facility] 03/08 Admit/Disch: 04/23/23 00:01:00 - 04/23/23 11:25:00 Institution: Case Times PACU I FT Pre-Care Text: Identifies barriers to communication and implements measures to provide psychological support Develops individualized plan of care, and ensures continuity of care Maintains patient's dignity and privacy, and maintains patient confidentiality Identifies and reports philosophical, cultural, and spiritual beliefs and values Identifies individual values and wishes concerning care Implements aseptic technique, and administers prescribed antibiotic therapy and immunizing agents as ordered Evaluates postoperative tissue perfusion Implements thermoregulation measures, and monitors body temperature Evaluates postoperative respiratory status Evaluates postoperative cardiac status Evaluates postoperative neurological status Assesses pain control, collaborated in initiating patient-controlled analgesia and implements alternative methods of pain control Verifies allergies, administers prescribed medications and solutions, evaluates response to medications Entry 1 In PACU I 04/23/23 10:55:00 Discharge from PACU 04/23/23 11:25:00 I Outcomes Met? Yes Last Modified By: Yari Krishnan RN 04/23/23 12:03:29 Post-Care Text: The patient demonstrates knowledge of the expected response to the operative or invasive procedure The patient's care is consistent with the individualized perioperative plan of care The patient's right to privacy is maintained The patient's value system, lifestyle, ethnicity, and culture are considered, respected, and incorporated into the perioperative plan of care The patient participates in decisions affecting his or her perioperative plan of care The patient is free from signs and symptoms of infection The patient has wound/tissue perfusion consistent with or improved from baseline levels established preoperatively The patient is at or returning to normothermia at the conclusion of the immediate postoperative period The patient's respiratory function is consistent with or improved from baseline levels established preoperatively The patient's cardiovascular status is consistent with or improved from baseline levels established preoperatively The patient's cardiovascular status is consistent with or improved from baseline levels established preoperatively The patient demonstrates and/or reports adequate pain control throughout the perioperative period The patient received appropriate medication(s), safely administered during the perioperative period Acuity Level PACU I FT Entry 1 Start Time 04/23/23 10:55:00 Stop Time 04/23/23 11:25:00 Acuity Level Acuity Level I Last Modified By: Yari Krishnan RN 04/23/23 12:03:43 Finalized By: Yari Krishnan RN Document Signatures Signed By: Yari Krishnan RN 04/23/23 12:03 Normal [facility] Main OR Preoperative Recordo n 04-23-2023 Main OR Preoperative Record Holding Area Document Type FT Summary Primary Physician: Azeem HARPER MD Finalized Date/Time: 04/23/23 10:35:29 Pt. Name: JANET CRUZ/Sex: 1950 Male Med Rec #: [id number] Physician: Azeem HARPER MD Financial #: [id number] Pt. Type: O Room/Bed: [facility] 03/08 Admit/Disch: 04/23/23 00:01:00 - Institution: Case Times Holding FT Pre-Care Text: Verifies consent for planned procedure, identifies individual values and wishes concerning care, includes family members in perioperative teaching Secures patient's records' belongings, and valuables, maintains patient's dignity and privacy, and maintains patient confidentiality Entry 1 In Holding 04/23/23 10:10:00 Outcomes Met? Yes Last Modified By: Briana Vergara RN 04/23/23 10:12:31 Post-Care Text: The patient participates in decisions affecting his or her perioperative plan of care The patient's right to privacy is maintained Surgery Checklist FT Entry 1 Patient Birthday, ID Band Procedure History and Physical, Identification: Check, Patient Verification: Surgical Consent, With Participation Patient NPO after Midnight: Yes Personal Items: Cataract Lens Implant, Glasses Personal Items Glassess, bilat IOL Limitations: Vision Comment: Complaints of Pain: No Pain Comment: Denies Operative Site n/a Availability Equipment Marking: Verified: Does Patient Smoke No Patient states Yes Comment - Adult Shani- postop adult Supervision supervision available Case Cancelled in No Holding Area see comments below for reason Last Modified By: Briana Vergara RN 04/23/23 10:22:17 Finalized By: Briana Vergara RN Document Signatures Signed By: Briana Vergara RN 04/23/23 10:35 Normal [facility] Monitor Recordon 04-23-2023 Monitor Record [id number] CD:127 Normal [facility] Monitor Record [id number]#[id number] CD:127 [facility] Patient Education - Texton 0 04-23-2023 Patient Education - Text Colonoscopy Care After Surgery Please read the instructions outlined below and refer to this sheet in the next few weeks. These discharge instructions provide you with general information on caring for yourself after you leave the hospital. Your doctor may also give you specific instructions. While your treatment has been planned according to the most current medical practices available, unavoidable complications occasionally occur. If you have any problems or questions after discharge, please call your doctor. ACTIVITY You may resume your regular activity, but move at a slower pace for the next 24 hours. Take frequent rest periods for the next 24 hours. Walking will help get rid of the air and reduce the bloated feeling in your abdomen (belly). No driving for 24 hours (because of the anesthesia (medicine) used during the test). You may shower. Do not sign any important legal documents or operate any machinery for 24 hours (because of the anesthesia used during the test). NUTRITION Drink plenty of fluids. You may resume your normal diet as instructed by your doctor. Begin with a light meal and progress to your normal diet. Heavy or fried foods are harder to digest and may make you feel nauseated (sick to your stomach). Avoid alcoholic beverages for 24 hours or as instructed. MEDICATIONS You may resume your normal medications unless your doctor tells you otherwise. WHAT YOU CAN EXPECT TODAY Some feelings of bloating in the abdomen. Passage of more gas than usual. Spotting of blood in your stool or on the toilet paper. FOLLOW-UP Your doctor will discuss the results of your test with you. SEEK IMMEDIATE MEDICAL ATTENTION IF: There is more than a spotting of blood in your stool. There is abdominal distention (your abdomen is swollen). There is vomiting. You have a temperature over 101.5 F. There is abdominal pain or discomfort that is severe or gets worse throughout the day. Dermatology Lipoma A lipoma is a noncancerous (benign) tumor that is made up of fat cells. This is a very common type of soft-tissue growth. Lipomas are usually found under the skin (subcutaneous). They may occur in any tissue of the body that contains fat. Common areas for lipomas to appear include the back, arms, shoulders, buttocks, and thighs. Lipomas grow slowly, and they are usually painless. Most lipomas do not cause problems and do not require treatment. What are the causes? The cause of this condition is not known. What increases the risk? You are more likely to develop this condition if: ? You are 40?60 years old. ? You have a family history of lipomas. What are the signs or symptoms? A lipoma usually appears as a small, round bump under the skin. In most cases, the lump will: ? Feel soft or rubbery. ? Not cause pain or other symptoms. However, if a lipoma is located in an area where it pushes on nerves, it can become painful or cause other symptoms. How is this diagnosed? A lipoma can usually be diagnosed with a physical exam. You may also have tests to confirm the diagnosis and to rule out other conditions. Tests may include: ? Imaging tests, such as a CT scan or an MRI. ? Removal of a tissue sample to be looked at under a microscope (biopsy). How is this treated? Treatment for this condition depends on the size of the lipoma and whether it is causing any symptoms. ? For small lipomas that are not causing problems, no treatment is needed. ? If a lipoma is bigger or it causes problems, surgery may be done to remove the lipoma. Lipomas can also be removed to improve appearance. Most often, the procedure is done after applying a medicine that numbs the area (local anesthetic). ? Liposuction may be done to reduce the size of the lipoma before it is removed through surgery, or it may be done to remove the lipoma. Lipomas are removed with this method to limit incision size and scarring. A liposuction tube is inserted through a small incision into the lipoma, and the contents of the lipoma are removed through the tube with suction. Follow these instructions at home: ? Watch your lipoma for any changes. ? Keep all follow-up visits. This is important. Where to find more information ? OrthoInfo: orthoinfo.aaos.org Contact a health care provider if: ? Your lipoma becomes larger or hard. ? Your lipoma becomes painful, red, or increasingly swollen. These could be signs of infection or a more serious condition. Get help right away if: ? You develop tingling or numbness in an area near the lipoma. This could indicate that the lipoma is causing nerve damage. Summary ? A lipoma is a noncancerous tumor that is made up of fat cells. ? Most lipomas do not cause problems and do not require treatment. ? If a lipoma is bigger or it causes problems, surgery may be done to remove the lipoma. ? Contact a health care provider if your lipoma becomes larger or hard, or if it becomes painf (more content not included)... Normal [facility] Pre-Certification Formon Pre-Certification Form [id number] D:127 Normal [facility] Progress Note-Physicianon Progress Note-Physician Patient: JANET CRUZ Age: 72 years Sex: Male : 1950 Associated Diagnoses: None Author: Jose POE, Luis Antonio Mi Postoperative Information Postoperative disposition: Postoperative disposition: To PACU. Optimetrix number: Optimetrix number [id number]. Anesthetic utilized: General. Physical Examination Vital Signs 04/23/2023 11:20 EDT Heart Rate Monitored 63 bpm Respiratory Rate Monitored 12 br/min Systolic Blood Pressure 139 mmHg Diastolic Blood Pressure 87 mmHg Blood Pressure Location Left arm Mean Arterial Pressure, Cuff 104 mmHg SpO2 97 % 04/23/2023 11:10 EDT Heart Rate Monitored 67 bpm Respiratory Rate Monitored 15 br/min Systolic Blood Pressure 144 mmHg HI Diastolic Blood Pressure 86 mmHg Blood Pressure Location Left arm Mean Arterial Pressure, Cuff 105 mmHg SpO2 95 % 04/23/2023 11:05 EDT Heart Rate Monitored 63 bpm Respiratory Rate Monitored 12 br/min Systolic Blood Pressure 133 mmHg Diastolic Blood Pressure 72 mmHg Blood Pressure Location Left arm Mean Arterial Pressure, Cuff 92 mmHg SpO2 96 % 04/23/2023 11:00 EDT Heart Rate Monitored 64 bpm Respiratory Rate Monitored 17 br/min Systolic Blood Pressure 124 mmHg Diastolic Blood Pressure 65 mmHg Blood Pressure Location Left arm Mean Arterial Pressure, Cuff 85 mmHg SpO2 96 % 04/23/2023 10:55 EDT Temperature Temporal Artery 36.6 DegC Heart Rate Monitored 71 bpm Respiratory Rate Monitored 23 br/min Systolic Blood Pressure 126 mmHg Diastolic Blood Pressure 77 mmHg Blood Pressure Location Left arm Mean Arterial Pressure, Cuff 93 mmHg SpO2 96 % Pain Assessment: Pain Assessment 04/23/2023 11:20 EDT Numeric Pain Scale 0 = No pain . General: Awake, Alert, Appropriate. Respiratory: Adequate air exchange, Equal bilateral chest wall expansion. Cardiovascular: Stable. Neurological: At Baseline. Assessment Anesthetic outcome No anesthetic complications noted. Review / Management Condition: Stable. Plan Transfer/Discharge: Transfer/Discharge Discharge when meets criteria ( To home ). [facility] Comment on above: Result Comment: Elec tronically Signed By: Luis Antonio Garcia MD\.br\Date and Time Signed: 04/23/23 12:21 EDT Progress Note-Physician Patient: JANET CRUZ Age: 72 years Sex: Male : 1950 Associated Diagnoses: None Author: Luis Antonio Garcia MD Preoperative Information Anesthesia Preop Info: Time patient last ate or drank 04/23/2023 07:00:00. Anesthesia history: Patient history: None. Family history+: None. Informed consent: Signed by patient. Including risks, benefits, and alternatives related to the: Anesthetic plan. Re-evaluation prior to induction: Luis Antonio Garcia MD. Initial evaluation reviewed: No significant change. Review of Systems Eye: Negative. Ear/Nose/Mouth/Throat: Negative. Respiratory: Negative. Cardiovascular: Negative. Gastrointestinal: Negative. Genitourinary: Negative. Hematology/Lymphatics: Negative. Endocrine: Negative. Musculoskeletal: Negative. Neurologic: Negative. Health Status Allergies: Allergies (4) Active Reaction Adhesive Bandage Eruption cefOXitin Hypotension Flagyl Unknown Mushrooms Nasal congestion Current medications: Home Medications (12) Active acetaminophen , PRN amlodipine cilostazol , Oral, BID dorzolamide-timolol ophthalmic fondaparinux , SubCutaneous, Daily hydrochlorothiazide latanoprost ophthalmic lisinopril pravastatin trazodone , PRN venlafaxine warfarin , Medications (1) Active Scheduled: (0) Continuous: (1) Sodium Chloride 0.9% 1,000 mL 1,000 mL, IV, 20 mL/hr PRN: (0) Problem list: All Problems Abdominal pain in male / SNOMED CT 89100326 / Confirmed Adhesion of intestine / SNOMED CT 91079087 / Confirmed Benign prostatic hyperplasia (BPH) with urinary urgency / SNOMED CT 2384017287 / Confirmed Binge eating / SNOMED CT 2512391614 / Confirmed Diverticulosis / SNOMED CT 1501169682 / Confirmed History of amputation of hallux / SNOMED CT 6456789407 / Confirmed History of colon polyps / SNOMED CT 7058875649 / Confirmed HLD (hyperlipidemia) / SNOMED CT 17413742 / Confirmed HTN (hypertension) / SNOMED CT 0374829851 / Confirmed Morbid obesity / SNOMED CT 138316693 / Confirmed PTSD (post-traumatic stress disorder) / SNOMED CT 36472114 / Confirmed Sleep apnea / SNOMED CT 651758854 / Confirmed Thromboangiitis obliterans / SNOMED CT 50713998 / Confirmed Unsteady gait / SNOMED CT 52397158 / Confirmed Venous insufficiency / SNOMED CT 890140785 / Confirmed, Active Problems (15) Abdominal pain in male Adhesion of intestine Benign prostatic hyperplasia (BPH) with urinary urgency Binge eating Diverticulosis History of amputation of hallux History of colon polyps HLD (hyperlipidemia) HTN (hypertension) Morbid obesity PTSD (post-traumatic stress disorder) Sleep apnea Thromboangiitis obliterans Unsteady gait Venous insufficiency Histories Social History Social & Psychosocial Habits Tobacco 11/10/2022 Tobacco Use: Never (less than 100 in l Smokeless tobacco use: Never . Physical Examination Vital Signs 04/23/2023 10:22 EDT Temperature Temporal Artery 36.7 DegC Heart Rate Monitored 68 bpm Respiratory Rate 16 br/min Systolic Blood Pressure 184 mmHg HI Diastolic Blood Pressure 79 mmHg Blood Pressure Location Left arm SpO2 97 % Measurements from flowsheet : Measurements 04/23/2023 10:11 EDT Height/Length Measured 170.1 cm Height/Length Dosing 170.1 cm Weight Dosing 149.7 kg Weight Measured 149.7 kg Airway: Mallampati classification: II (soft palate, fauces, uvula visible). Distance: Thyromental, Adequate, thick neck. Respiratory: Lungs are clear to auscultation, Symmetrical chest wall expansion. Cardiovascular: Regular rhythm, Good pulses equal in all extremities. Gastrointestinal: Soft, Non-tender. Plan [place] [employer] (ASA) physical status classification: Class III. Anesthetic Preoperative Plan: Anesthesia General. [facility] Comment on above: Result Comment: Elec tronically Signed By: Jose POE, Luis Antonio Mi\.br\Date and Time Signed: 04/23/23 10:37 EDT Intra[employer] Documentson 0 02-02-2023 Intra[employer]ative Documents [id number]#[id number] 0CD:127 [facility] Coding Summary.on 01-31-2023 Coding Summary. CD:[id number] Ww+ PGhlYWQ+SF5JVUVjI26pdIH thH7dJ5WZHZyQZxwjZRDULY hYYzKurgCzQL6pxIWmGOIt IC8+YD0iKRXuNotvsCBof7R 0cLI8A22wnz9kXRwoiHT1KI GsQuMwhioyl9tfeTs1TRhfZ mluOyBt WKUybR06SSM2yJ75Od49kDJ wzQYrp7vuwAr2HnQdFAZePX J9cWheDYuiv4UmGLXdA08ux CQni4Q3 BSPylLjjvTAvBvIkxXX5rQ3 nMOsdqhgml1rpbivpKga4dz 26tCOcg7U5nTF9H3RadrQ6W GJvbGQg GgboyWVDmT1itafjn5lkeko dLyVmSRTtIDc5XRm4DHEcpK ltPpFfYJ46LRJ3CGBnrnMrH 2FsLWFs sCyzSdS9m1W5Eb9OO4HSMpb vH5WQTPDYIOkqnTJ+PC90cj 40E7RbEayyNzj1LEXtFXT0q PH7xR2f DVVxNAfdi5W0lHV3B4WyxeN dwb5si8yrZWVrLFjxG58eoC Clu9U4CAPyiXD3QUEbaPpsL iBzaG93 Oyc+YZNqnVwlu4AmFwrwj2d xk9iabUb1VylwMQKbweKxuA ejVNN4u1NrEi6oNTMoqEU0t OP1rY5z DpQsBzP6NDuuI726KeVddTO lHmoqX18sT1VwlRR+PHRyPj f9VEVssYseUK8oA4XaMBIei mctbGVm sWvbDM5kQMLgbmvcGEBtyE2 jAQLgX8t9RkDrGoC7HRfvV3 NiNPVilifzKy67vQ1jBsWzJ kV8YKsi W4UzhtK5PMKxwSLcCMpsVSO 7T26aa9Z2FIFnUULsIJX1nQ B4eL0opWmekrkrgDPzhDewe mVydGlj XNnmIVwlG041CKUmrCenJjY vZGluZyBEYXRlOiAgMDQvMj YvMjAyMzwvdGQ+BOOzLAE6j WxlPSAn eKYxKRpzEl2hsZrwgNvpCI0 fYKWretawBJYrwZ5jCLKomA RvyOowGC3tLHLbvflbw565C iAxMHB0 ROIxoCYiD6KxtK9iMdTrGGD vLNLqY4BhjNCvWHaoQ191XD rpXzE5VMQyfhFuM9RiFIPzm WduOiB0 j5O6Xj7Vu1OovuutZ9RiaWH nVtUnUwwcSVg6E4LoMspklQ I+HS81SZYjDY73WXm3WJS6y WxlPSdi JCUjH9JapY8xHaByHCXbOWO kOyc+PHRhYmxlIHdpZHRoPS ugISYzDzJqkBlnAE6lOs7dA GVyLWNv lZtjfLPvVnBqs3wrMNCeAGg tDP1jkTegP2QhmTS5OXLfp2 k3Vp78J88rO9UptJG+PGNvb MH7qQW6 fI6tQoTwVqM2XLezM019ZjD bxEIaEnwbn5ybq8dwkXz5Gw C8FQZrwpLrkAkwOSK8e1ZrN g29F45p IHdpZHRoPSIxNSUiIHZhbGl ktr7ooV8zZm9+SFExgHS8mF L6hP1pKdGwSwC4QNqnJ082G nRvcCIv Vyzyw4yub2cqlDh2JmRlFUJ wnkWdwFhkRVD5r4SgHe13K8 EdhOffu6WyImt1hy53oEHro 4X1tBL9 Z4XtQNPtasfpdGAofQfvWI6 lPVMcoeriJIPakP3cWFDaP6 z8RzMcDjW3JHapC9UpbiH9P GJvbGQg EDPhiNORdO0fsoynj7pvbyr iEmZcWBSuONm5DIr3KHFebJ itMnLcJLV9CyD6DZX3oTTap R9zdTri ulnhiH8pGqs+PZO7zLSfyBV GOF3cErwraXL+NNWuFLA3nU ukOOhuVJGodP7vGUVkN0x1K iAwLjA1 IVeuD5KvdlN7KRRkoXWwGTU paWUYaQ6xymlzb1ntzmycAk VgSYGzGCj3YJd2BYHjoOvuZ iBsZWZ0 DpJ6JJS8nFObgR7cqDinain lgG0kXmx+LvbegKfgHQZ6SB l4S4AnWxs3QEKzwTanNI2pp GFkZGlu Vs2umVkepIpxJL5wQLJuium jf778BlYql1mhGMWyvFSdNH rxVKP5P88gn3L9PXKgTZWhI GJ5vXJ6 jB5ukOwjmkcbzDAbxFqiayG poWoxHPfyXIynB636TPDhnP rdZtTvSXs2E3CgYhy5QRIfq NxpLI8e vGXzYKpiVi4zyNwjwRnnKR3 qJESaedebb934PnXag5krKG FysKWtFMiaDLL3V83zk2J2E CMwMDAw CVA8uCD4eF0gfIsuwljecME mdDsgdmVydGljYWwtYWxpZ2 60GAQmeHdxWgCtdYs0H3ZeM gy6DSPp xVzaFM9dsJElBDkyTw8egQe ezYwzKF9oVFPzdcxjb043Eg Kmf7kqZFSlpOQyBWdpOUM4X 68sq7L4 GTZiGNBePLO9xYF7qB0tvIk nbjogbGVmdDsgdmVydGljYW ifONshU549AVXurBafAyZkd GllbnQg QQimLFf0Q0FdBkcqbUN+PC9 1NBHfSW86yLFsyMHby2wbbE z0SvDdJVMoHBV9jBrpRLzgw 3JkZXIt A17kzQKpf7U5SHDwsBoypXR kVkJenOD5wQ3nQXfypspgz8 wiusknPtfsc6gwdd43cN19M 29sIHdp ZHRoPSIzMCUiIHZhbGlnbj0 eiC3tSf0+FPQhzYJ1jUL2xT 5fPQMjFgL4YRajQ010FoMru CIvPjxj l7qwt0cyvCl8PwT0MPYenoV khZpaTXL6y9UaYx06G69tTR dpZHRoPSIyMCUiIHZhbGlnb x6euC4v Ii8+DZNscRC5vKQ8jF7sNzI mSeA6SHjrY082ZwNwxSBbXx wiL07zL9WjoJE+JKKoMmn0Y CBzdHls TC1lnACyPIwrGo6gGBW8AxV bQqFfKIptM4DpQBNomvhzsb fqhWU7UMWkBQTqzC57Ma9ir DogMTBw fWQEhX6xomuay6qobrcjYxM sUAOdYIo2GXu4TNRawSfuJv NbYBS1RvO3FBG5wSDatR3wn Glnbjog xG8xW1ZuALUhzhetIs77nX7 qHiYuWaS3XIfdEsj+SEVSTU FOLCBEQVZJRDwvdGQ+PHRkI WW9tImi YClkJBVisV0iVFPoF1s7MlD pHaH6LAdrC6QiIXFvdcgeBr 81eT3pWjImMoA3NVjeH5Rdw lH6EVVw zHWbTZzpRKQ7U23ho6B0BTW hDAQqQJE1nDD7aF3ekVvwip ogbGVmdDsgdmVydGljYWwtY WvzT371 VAFphQciPdIgJfOvApF7HIJ 5F4TpXil7PTJhfHnlJM8fzH XjYCoaHc5qlVbegYtxGP5oZ TBpbjtw TTIxqQ0iYCRnaYGzkNgoAX8 lIFTvonxuh103WvQxUYD9XV DyeGDtS4HprS0nGbUpKJRhW RYdG1Bf hVYwBHwgA315XUzaTvV2KHW pmxSeD1NqUREfsWwbUcY3u4 A1Wa47FECWCFIylfpjdWY+P HRkIHN0 xAqlKHkkWISchE6uHNZaR9b 9TrVjWqD7TYwlT5QhFVNcfa cjWb83eX3oYmWlRfL8HWqwP 2MrgzY3 HVGyjSKuIEzkKIH3X16np1M 2EEQmSELbOHN7wWO0hR4pjS lnbjogbGVmdDsgdmVydGljY WwtYWxp X589OJUuyIciTu6orVK8W5K vMej8XXFohYmbKB0giOIcGV tiQi5mjOjehKzyRS5nFWWev jtwYWRk uE9jNJXvkVHadAsfAA1rWXP fycdts477FcZzJOM6NZVmpY JmZ1BhiD5iNrTlRIMbXHKqJ 3RleHQt OUybW933LAlsLgC2JSKtblK aS9EvFASiyTqcDcG6n4W0Op 6OaVDsQZGaUV73GR91IY16E 3RyPjwv dGFibGU+PHRhYmxlIHdpZHR oOAadNPLrJkChfGbfRJ1cQh 9yZGVyLWNvbGxhcHNlOiBjb 2xsYXBz UHjcAC1rwQesU5ZykFN8DTT kw3l1Nn40T72pY2GkiYD+PG ZjxWC0cCR9yF2dLsBaDwJ1B OsvI258 TuLjqIMgZxeox7nld8motWb 8CkXsIGLgjnHihVliFGV7d7 CxZc53V28zCIsbUEJrLEUcW CUiIHZh fXeayj7smI0yLe8+PGNvbCB 4tYB7zK4tBcNkMkP5YJplM1 06KlOgcLVrFqfoA88hO7Omn XA+PHRy Yoo8KMAcwXbuMO2lrXKdGQk cUb6aZIR2RlEiLyXyNQpjX1 StJEZeoetmueajbXO8VRTsZ DUwaW47 It5euRaxZq9hARQfQRF6FGE luYOnB3EdjE5dRpBhIHLpPE GmP7GxgVWyODuzZ189SDchV uU3TOJr ofKeO9FfZZOokCrcTsD3q4Z 4Ie4ZeHmguMAvYX2qCcSzNN a3N2XyQne8ZFBziQbpRK7he GFkZGlu Ua2kmOeakOygLN5rDENssbp zw394BqHxi7smIZYhdFNaVU ojMUB3W76fl9W5YWHvBUVpO JS1aWV2 wS5eqDrbjcalmJCphBussrR hmQctOBbvCAenG101HBCukF fjJkLLAfg7I6YxMhi8WUQps NcdZM1t tMLoQJrcPu7hyBrxnQfnVT4 tBUFqzfogm989RlSjw8gkOE KjiVToEIixKOY4H77wy6K8S CMwMDAw RYK4xAO1mI0qeWxxvimnwQM mdDsgdmVydGljYWwtYWxpZ2 74XGFmnAlrAx4YRsx2N9ObQ kc1SJYe hFklYB7eqGVwSNzaJa8egSt wpZtzMH6bOEOfnwipw690Vh Jpa5ajOWThnYExBWdcWNM7B 61yr3P4 NRVbSIFzIRJ6iIH1dK6slUe nbjogbGVmdDsgdmVydGljYW nxLNrtQ622KMEgeEwnGoQxj WVyOjwv dGQ+AB81tr76L1LxJgabDel 5MAEyEJB6iXR1zQ5xQUTjHP ayp2T9kMJ0V8WtriHhvn7fs 2xsYXBz VJliE06p (more content not included)... Normal [facility] Consenton 01-31-2023 Consent [id number] CD:127 Normal [facility] Discharge Instructionson Discharge Instructions [id number] CD:127 Normal [facility] Postoperative Documentson Postoperative Documents [id number] CD:127 Normal [facility] Main OR Intraoperative Recor don 01-30-2023 Main OR Intraoperative Record IntraOp Document Type FT Summary Primary Physician: Azeem HARPER MD Finalized Date/Time: 01/30/23 13:12:06 Pt. Name: JANET CRUZ/Sex: 1950 Male Med Rec #: [id number] Physician: Azeem HARPER MD Financial #: [id number] Pt. Type: O Room/Bed: / Admit/Disch: 01/29/23 08:23:25 - 01/29/23 23:59:59 Institution: Case Times FT Entry 1 Patient Times In Room 01/29/23 09:42:00 Out Room 01/29/23 09:48:00 Procedure Times Start 01/29/23 09:46:00 Stop 01/29/23 09:46:00 Anesthesia Times Start 01/29/23 09:42:00 Stop 01/29/23 09:48:00 Last Modified By: Donell Sheth RN 01/29/23 09:49:23 General Comments: Colonoscopy not completed due to poor bowel prep MSRN 01/30/23 Chart opened to review and send charges [facility]FA Case Attendance FT Entry 1 Entry 2 Entry 3 Case Attendee Jose POE, Luis Antonio Sheth RN, Donell Black DIE MAINTENANCE, Sandra Joseph Role Performed Anesthesiologist of Retail Event Assistant - Primary Scrub - Primary Record Time In 01/29/23 09:42:00 01/29/23 09:42:00 01/29/23 09:42:00 Time Out 01/29/23 09:48:00 01/29/23 09:48:00 01/29/23 09:48:00 Procedure COLONOSCOPY(.) COLONOSCOPY(.) COLONOSCOPY(.) Comments Last Modified By: Domenic VEGA, Donell Sheth RN, Donell Sheth RN, Donell Mcmahon 01/29/23 09:49:25 01/29/23 09:49:25 01/29/23 09:49:25 Entry 4 Case Attendee Azeem HARPER MD Role Performed Surgeon - Primary Time In 01/29/23 09:42:00 Time Out 01/29/23 09:48:00 Procedure COLONOSCOPY(.) Comments Last Modified By: Donell Sheth RN 01/29/23 09:49:25 Perioperative Protocols FT Pre-Care Text: Implements protective measures prior to operative or invasive procedure, confirms identity before the operative or invasive procedure, verifies operative procedure, surgical site, and laterality Entry 1 Procedure(s) COLONOSCOPY(.) Patient Identity Birthday, ID Band Verified (select at Check, Patient least 2): Participation Consents / H and P Anesthesia Consent, Operative Site N/A Verified HandP, Surgery/Procedure Marking Verified Consent Surgical Site No Laterality Verified n/a Verified Procedure Verified Yes Correct Patient Yes Position Verified Availability Equipment, Medication Prep Dry n/a Verified (If Applicable) PreOp Antibiotic No Time Out Luis Antonio Garcia MD Given Participants S., Donell Sheth RN, Schafer DIE MAINTENANCE, MEREDITH Anderson MD, Maher Time Out Complete 01/29/23 09:45:00 Outcomes Met? Yes Last Modified By: Donell Sheth RN 01/29/23 09:46:43 Post-Care Text: The patient is free from signs and symptoms of injury caused by extraneous objects Allergy Information FT Pre-Care Text: Verifies allergies Entry 1 Allergies Reviewed? Yes Allergies Reviewed Self/Patient With Outcomes Met? Yes Last Modified By: Donell Sheth RN 01/29/23 09:44:20 Post-Care Text: The patient received appropriate medication(s) safely administered during the perioperative period Surgical Procedures FT Entry 1 Procedure Description Procedure COLONOSCOPY Modifiers . Surgeon Description Colonoscopy Primary Procedure Yes Primary Surgeon Azeem HARPER MD Start 01/29/23 09:46:00 Stop 01/29/23 09:46:00 Anesthesia Type General Surgical Service Gastroenterology Wound Class 2 - Clean-Contaminated Last Modified By: Donell Sheth RN 01/29/23 09:48:58 General Comments: Colonoscopy incomplete due to poor prep General Case Data FT Pre-Care Text: Classifies surgical wound, implements aseptic technique, initiates traffic control Entry 1 Case Information OR ENDO 1 FT Case Level Level 2 Wound Class 2 - Clean-Contaminated Specialty Gastroenterology ASA Class 3 Preop Diagnosis History of colon polyps Postop Same As Preop No Postop Diagnosis Colonoscopy incomplete Outcomes Met? Yes due to poor prep Last Modified By: Lexii Sims CST 01/30/23 13:12:01 Post-Care Text: The patient is free from signs and symptoms of infection Skin Assessment (Pre Procedure) FT Pre-Care Text: Implements protective measures to prevent skin/ tissue injury due to thermal or mechanical sources Evaluates for signs and symptoms of physical injury to skin and tissue Entry 1 Skin Integrity Dry, Warm Skin Abnormality No Outcomes Met? Yes Last Modified By: Donell Sheth RN 01/29/23 09:45:30 Post-Care Text: The patient is free from signs and symptoms of injury caused by extraneous objects Patient Positioning FT Pre-Care Text: Identifies physical alterations that require additional precautions for procedure-specific positioning, verifies presence of prosthetics or corrective devices, positions the patient, evaluates the patient for signs and symptoms of injury as a result of positioning Entry 1 Procedure COLONOSCOPY(.) Body Position Lateral, right side up Feet Uncrossed? Yes Left Arm Position Resting at Side Right Arm Position Resting at Side Left Leg Position Extended Right Leg Position Extended Posi (more content not included)... Normal [facility] Consent for Treatmenton 01-07 Consent for Treatment [id number] D:127 Normal [facility] Discharge Instructionson Discharge Instructions NANCY JANET :1950 Visit Date:01/29/2023 Inpatient Discharge Instructions Your Care Team Admitting Physician - Azeem HARPER MD Referring Physician - Azeem HARPER MD Reason for Your Visit HISTORY OF COLON POLYPS Your Diagnosis History of colon polyps This Is Your Medications List acetaminophen amlodipine cilostazol dorzolamide-timolol ophthalmic fondaparinux hydrochlorothiazide latanoprost ophthalmic lisinopril pravastatin trazodone venlafaxine warfarin Procedure History Colonoscopy. Discharge Vitals Temperature (Temporal Artery) 36.4 ?C Heart Rate (Monitored) 73 Respiratory Rate 12 Blood Pressure 115/68 Height 170.1 cm Weight 149.7 kg BMI 51.74 What to do next Instructions From Your Doctor Event Name Event Result Discharge Instructions Freetext Repeat colonoscopy due 2 days. Discharge Activity Resume normal activities in 24 hours Discharge Restrictions No driving for 24 hrs, Do not operate machinery or tools, Do not make important decisions for 24 hours Discharge Diet(s) Regular Discharge Instructions Discharge Instructions New Follow Up Appointments after Discharge Follow Up with Azeem HARPER When: Comments: Call Office to arrange 2 day Prep and repeat colonoscopy less than 3 months Where: [address] [place] [address] Business (1) Medications What When Instructions Next Dose Unchanged acetaminophen As needed for as needed for pain Unchanged amlodipine Unchanged cilostazol Unchanged dorzolamide-timolol ophthalmic Unchanged fondaparinux Unchanged hydrochlorothiazide Unchanged latanoprost ophthalmic Unchanged lisinopril Unchanged pravastatin Unchanged trazodone As needed for Sleep Unchanged venlafaxine Unchanged warfarin Test Results No qualifying data available. Allergies Adhesive Bandage (Eruption) Flagyl (Unknown) Mushrooms (Nasal congestion) cefOXitin (Hypotension) Problems Ongoing - Any problem that you are currently receiving treatment for. Abdominal pain in male Adhesion of intestine Benign prostatic hyperplasia (BPH) with urinary urgency Binge eating Diverticulosis History of amputation of hallux History of colon polyps HLD (hyperlipidemia) HTN (hypertension) Morbid obesity PTSD (post-traumatic stress disorder) Sleep apnea Thromboangiitis obliterans Unsteady gait Venous insufficiency Education Materials Colonoscopy Care After Surgery Please read the instructions outlined below and refer to this sheet in the next few weeks. These discharge instructions provide you with general information on caring for yourself after you leave the hospital. Your doctor may also give you specific instructions. While your treatment has been planned according to the most current medical practices available, unavoidable complications occasionally occur. If you have any problems or questions after discharge, please call your doctor. ACTIVITY You may resume your regular activity, but move at a slower pace for the next 24 hours. Take frequent rest periods for the next 24 hours. Walking will help get rid of the air and reduce the bloated feeling in your abdomen (belly). No driving for 24 hours (because of the anesthesia (medicine) used during the test). You may shower. Do not sign any important legal documents or operate any machinery for 24 hours (because of the anesthesia used during the test). NUTRITION Drink plenty of fluids. You may resume your normal diet as instructed by your doctor. Begin with a light meal and progress to your normal diet. Heavy or fried foods are harder to digest and may make you feel nauseated (sick to your stomach). Avoid alcoholic beverages for 24 hours or as instructed. MEDICATIONS You may resume your normal medications unless your doctor tells you otherwise. WHAT YOU CAN EXPECT TODAY Some feelings of bloating in the abdomen. Passage of more gas than usual. Spotting of blood in your stool or on the toilet paper. FOLLOW-UP Your doctor will discuss the results of your test with you. SEEK IMMEDIATE MEDICAL ATTENTION IF: There is more than a spotting of blood in your stool. There is abdominal distention (your abdomen is swollen). There is vomiting. You have a temperature over 101.5 F. There is abdominal pain or discomfort that is severe or gets worse throughout the day. Colonoscopy Care After Surgery Please read the instructions outlined below and refer to this sheet in the next few weeks. These discharge instructions provide you with general information on caring for yourself after you leave the hospital. Your doctor may also give you specific instructions. While your treatment has been planned according to the most current medical practices available, unavoidable complications occasionally occur. If you have any problems or questio (more content not included)... Normal [facility] Comment on above: Result Comment: Elec tronically Signed By: Demetria Shen RN\.br\Date and Time Signed: 01/29/23 10:02 EDT Endoscopic Procedure Report - Otheron 01-29-2023 Endoscopic Procedure Report - Other Patient: JANET CRUZ Age: 72 years Sex: Male : 1950 Associated Diagnoses: None Author: Azeem HARPER MD Pre-Procedure Procedure Date 01/29/2023 09:46:00 . Procedure Type: Colonoscopy. Procedure provider Performed by Azeem Harper MD. Current history and physical Documented on chart. Colorectal neoplasm risk assessment Average risk. Informed Consent After discussing the rationale, risks and benefits, and alternatives to this procedure, the patient provided signed consent for the procedure. Pre-procedure diagnosis: History of colon polyps. Medications Anticoagulant/antiplate let None. Antibiotic prophylaxis Not indicated. ASA Classification: Class II. . Procedure The procedure was performed in the hospital. Rectal exam was performed and was normal with no masses palpated. The patient was positioned in the left lateral decubitus position and a digital rectal exam was performed.. Endoscope type used was an adult-size. The endoscope was lubricated then introduced through the anus. The scope was advanced to the sigmoid colon. The procedure was aborted. The bowel preparation quality was inadequate. The patient tolerated the procedure well. Findings Aborted procedure at the sigmoid level secondary to poor prep. Post-Procedure Complications: none. Estimated blood loss: none. Specimens: none. Devices/ implants: none left in place. Impression and Plan Aborted procedure at the sigmoid level secondary to poor prep. Recommendations: Repeat colonoscopy:: In less than 3 months, Next available with 2 days prep . Follow-up:: Clinic follow-up in 1-2 weeks. Diet:: Resume previous diet. Medication resumption:: Continue current medications. Return to activities:: After 24 hours. [facility] Comment on above: Result Comment: Elec tronically Signed By: Azeem HARPER MD\.br\Date and Time Signed: 01/29/23 09:47 EDT Main OR PACU I Recordon 01-07 Main OR PACU I Record PACU Phase I Document Type FT Summary Primary Physician: Azeem HARPER MD Finalized Date/Time: 01/29/23 10:35:42 Pt. Name: JANET CRUZ/Sex: 1950 Male Med Rec #: [id number] Physician: Azeem HARPER MD Financial #: [id number] Pt. Type: O Room/Bed: / Admit/Disch: 01/29/23 08:23:25 - Institution: Case Times PACU I FT Pre-Care Text: Identifies barriers to communication and implements measures to provide psychological support Develops individualized plan of care, and ensures continuity of care Maintains patient's dignity and privacy, and maintains patient confidentiality Identifies and reports philosophical, cultural, and spiritual beliefs and values Identifies individual values and wishes concerning care Implements aseptic technique, and administers prescribed antibiotic therapy and immunizing agents as ordered Evaluates postoperative tissue perfusion Implements thermoregulation measures, and monitors body temperature Evaluates postoperative respiratory status Evaluates postoperative cardiac status Evaluates postoperative neurological status Assesses pain control, collaborated in initiating patient-controlled analgesia and implements alternative methods of pain control Verifies allergies, administers prescribed medications and solutions, evaluates response to medications Entry 1 In PACU I 01/29/23 09:49:00 Discharge from PACU 01/29/23 10:19:00 I Outcomes Met? Yes Last Modified By: Demetria Shen RN 01/29/23 10:35:28 Post-Care Text: The patient demonstrates knowledge of the expected response to the operative or invasive procedure The patient's care is consistent with the individualized perioperative plan of care The patient's right to privacy is maintained The patient's value system, lifestyle, ethnicity, and culture are considered, respected, and incorporated into the perioperative plan of care The patient participates in decisions affecting his or her perioperative plan of care The patient is free from signs and symptoms of infection The patient has wound/tissue perfusion consistent with or improved from baseline levels established preoperatively The patient is at or returning to normothermia at the conclusion of the immediate postoperative period The patient's respiratory function is consistent with or improved from baseline levels established preoperatively The patient's cardiovascular status is consistent with or improved from baseline levels established preoperatively The patient's cardiovascular status is consistent with or improved from baseline levels established preoperatively The patient demonstrates and/or reports adequate pain control throughout the perioperative period The patient received appropriate medication(s), safely administered during the perioperative period Acuity Level PACU I FT Entry 1 Start Time 01/29/23 09:49:00 Stop Time 01/29/23 10:19:00 Acuity Level Acuity Level I Last Modified By: Demetria Shen RN 01/29/23 10:35:40 Finalized By: Demetria Shen RN Document Signatures Signed By: Demetria Shen RN 01/29/23 10:35 Normal [facility] Main OR Preoperative Recordo n 01-29-2023 Main OR Preoperative Record Holding Area Document Type FT Summary Primary Physician: Azeem HARPER MD Finalized Date/Time: 01/29/23 09:11:18 Pt. Name: JANET CRUZ/Sex: 1950 Male Med Rec #: [id number] Physician: Azeem HARPER MD Financial #: [id number] Pt. Type: O Room/Bed: / Admit/Disch: 01/29/23 08:23:25 - Institution: Case Times Holding FT Pre-Care Text: Verifies consent for planned procedure, identifies individual values and wishes concerning care, includes family members in perioperative teaching Secures patient's records' belongings, and valuables, maintains patient's dignity and privacy, and maintains patient confidentiality Entry 1 In Holding 01/29/23 09:02:00 Outcomes Met? Yes Last Modified By: Donell Sheth RN 01/29/23 09:09:46 Post-Care Text: The patient participates in decisions affecting his or her perioperative plan of care The patient's right to privacy is maintained Surgery Checklist FT Entry 1 Patient Birthday, ID Band Procedure History and Physical, Identification: Check, Patient Verification: Surgical Consent, With Participation Patient NPO after Midnight: Yes Results Reviewed clear/yellow liquid Comments: bowel results Personal Items: Cataract Lens Implant, Personal Items bilateral cataract lens Jewelry Comment: implants, glasses, clothing, shoes Limitations: none Complaints of Pain: No Pain Comment: pt denies pain at this Operative Site n/a time Marking: Marked By: n/a Location: n/a Availability Equipment Verified: Does Patient Smoke No Patient states Yes Comment - Adult - Shani postop adult Supervision supervision available Case Cancelled in No Holding Area see comments below for reason Last Modified By: Donell Sheth RN 01/29/23 09:11:17 General Comments: pt states he finished bowel prep prior to midnight. pt states nothing to eat or drink since MSRN Finalized By: Donell Sheth RN Document Signatures Signed By: Donell Sheth RN 01/29/23 09:11 Normal [facility] Monitor Recordon 01-29-2023 Monitor Record [id number] CD:127 Normal [facility] Patient Education - Texton 0 01-29-2023 Patient Education - Text Colonoscopy Care After Surgery Please read the instructions outlined below and refer to this sheet in the next few weeks. These discharge instructions provide you with general information on caring for yourself after you leave the hospital. Your doctor may also give you specific instructions. While your treatment has been planned according to the most current medical practices available, unavoidable complications occasionally occur. If you have any problems or questions after discharge, please call your doctor. ACTIVITY You may resume your regular activity, but move at a slower pace for the next 24 hours. Take frequent rest periods for the next 24 hours. Walking will help get rid of the air and reduce the bloated feeling in your abdomen (belly). No driving for 24 hours (because of the anesthesia (medicine) used during the test). You may shower. Do not sign any important legal documents or operate any machinery for 24 hours (because of the anesthesia used during the test). NUTRITION Drink plenty of fluids. You may resume your normal diet as instructed by your doctor. Begin with a light meal and progress to your normal diet. Heavy or fried foods are harder to digest and may make you feel nauseated (sick to your stomach). Avoid alcoholic beverages for 24 hours or as instructed. MEDICATIONS You may resume your normal medications unless your doctor tells you otherwise. WHAT YOU CAN EXPECT TODAY Some feelings of bloating in the abdomen. Passage of more gas than usual. Spotting of blood in your stool or on the toilet paper. FOLLOW-UP Your doctor will discuss the results of your test with you. SEEK IMMEDIATE MEDICAL ATTENTION IF: There is more than a spotting of blood in your stool. There is abdominal distention (your abdomen is swollen). There is vomiting. You have a temperature over 101.5 F. There is abdominal pain or discomfort that is severe or gets worse throughout the day. Colonoscopy Care After Surgery Please read the instructions outlined below and refer to this sheet in the next few weeks. These discharge instructions provide you with general information on caring for yourself after you leave the hospital. Your doctor may also give you specific instructions. While your treatment has been planned according to the most current medical practices available, unavoidable complications occasionally occur. If you have any problems or questions after discharge, please call your doctor. ACTIVITY You may resume your regular activity, but move at a slower pace for the next 24 hours. Take frequent rest periods for the next 24 hours. Walking will help get rid of the air and reduce the bloated feeling in your abdomen (belly). No driving for 24 hours (because of the anesthesia (medicine) used during the test). You may shower. Do not sign any important legal documents or operate any machinery for 24 hours (because of the anesthesia used during the test). NUTRITION Drink plenty of fluids. You may resume your normal diet as instructed by your doctor. Begin with a light meal and progress to your normal diet. Heavy or fried foods are harder to digest and may make you feel nauseated (sick to your stomach). Avoid alcoholic beverages for 24 hours or as instructed. MEDICATIONS You may resume your normal medications unless your doctor tells you otherwise. WHAT YOU CAN EXPECT TODAY Some feelings of bloating in the abdomen. Passage of more gas than usual. Spotting of blood in your stool or on the toilet paper. FOLLOW-UP Your doctor will discuss the results of your test with you. SEEK IMMEDIATE MEDICAL ATTENTION IF: There is more than a spotting of blood in your stool. There is abdominal distention (your abdomen is swollen). There is vomiting. You have a temperature over 101.5 F. There is abdominal pain or discomfort that is severe or gets worse throughout the day. Normal [facility] Progress Note-Physicianon Progress Note-Physician Patient: JANET CRUZ Age: 72 years Sex: Male : 1950 Associated Diagnoses: None Author: Jose POE, Luis Antonio Mi Postoperative Information Postoperative disposition Optimetrix number: Optimetrix number [id number]. Anesthetic utilized: General. Physical Examination Vital Signs 01/29/2023 10:08 EDT Heart Rate Monitored 68 bpm Respiratory Rate Monitored 15 br/min Systolic Blood Pressure 136 mmHg Diastolic Blood Pressure 77 mmHg Mean Arterial Pressure, Cuff 97 mmHg SpO2 98 % 01/29/2023 10:00 EDT Heart Rate Monitored 70 bpm Respiratory Rate Monitored 17 br/min Systolic Blood Pressure 120 mmHg Diastolic Blood Pressure 67 mmHg Mean Arterial Pressure, Cuff 85 mmHg SpO2 97 % 01/29/2023 9:55 EDT Heart Rate Monitored 77 bpm Respiratory Rate Monitored 6 br/min Systolic Blood Pressure 130 mmHg Diastolic Blood Pressure 71 mmHg Mean Arterial Pressure, Cuff 91 mmHg SpO2 96 % 01/29/2023 9:53 EDT SpO2 94 % 01/29/2023 9:50 EDT Heart Rate Monitored 73 bpm Respiratory Rate Monitored 12 br/min Systolic Blood Pressure 115 mmHg Diastolic Blood Pressure 68 mmHg Mean Arterial Pressure, Cuff 84 mmHg SpO2 91 % 01/29/2023 9:49 EDT Temperature Temporal Artery 36.4 DegC Heart Rate Monitored 73 bpm Respiratory Rate Monitored 12 br/min Systolic Blood Pressure 115 mmHg Diastolic Blood Pressure 68 mmHg Blood Pressure Location Left arm Mean Arterial Pressure, Cuff 84 mmHg SpO2 91 % Pain Assessment: Pain Assessment 01/29/2023 9:53 EDT Numeric Pain Scale 0 = No pain . General: Awake, Alert, Appropriate. Respiratory: Adequate air exchange, Equal bilateral chest wall expansion. Cardiovascular: Stable. Neurological: At Baseline. Assessment Anesthetic outcome No anesthetic complications noted. Review / Management Condition: Stable. Plan Transfer/Discharge: Transfer/Discharge Discharge when meets criteria ( To home ). [facility] Comment on above: Result Comment: Elec tronically Signed By: Jose POE, Luis Antonio Mi\.br\Date and Time Signed: 01/29/23 17:44 EDT Progress Note-Physician Patient: JANET CRUZ Age: 72 years Sex: Male : 1950 Associated Diagnoses: None Author: Luis Antonio Garcia MD Preoperative Information Anesthesia Preop Info: Time patient last ate or drank 01/29/2023 08:30:00. Anesthesia history: Patient history: None. Family history+: None. Informed consent: Signed by patient. Including risks, benefits, and alternatives related to the: Anesthetic plan. Re-evaluation prior to induction: Jose POE, Luis Antonio Mi. Initial evaluation reviewed: No significant change. Review of Systems Eye: Negative. Ear/Nose/Mouth/Throat: Negative. Respiratory: Negative. Cardiovascular: Negative. Gastrointestinal: Negative. Genitourinary: Negative. Hematology/Lymphatics: Negative. Endocrine: Negative. Musculoskeletal: Negative. Neurologic: Negative. Health Status Allergies: Allergies (4) Active Reaction Adhesive Bandage Eruption cefOXitin Hypotension Flagyl Unknown Mushrooms Nasal congestion Current medications: Home Medications (12) Active acetaminophen , PRN amlodipine cilostazol dorzolamide-timolol ophthalmic fondaparinux hydrochlorothiazide latanoprost ophthalmic lisinopril pravastatin trazodone , PRN venlafaxine warfarin , Medications (1) Active Scheduled: (0) Continuous: (1) Sodium Chloride 0.9% 1,000 mL 1,000 mL, IV, 20 mL/hr PRN: (0) Problem list: All Problems Abdominal pain in male / SNOMED CT 96572906 / Confirmed Adhesion of intestine / SNOMED CT 47579737 / Confirmed Benign prostatic hyperplasia (BPH) with urinary urgency / SNOMED CT 6832023559 / Confirmed Binge eating / SNOMED CT 4641126178 / Confirmed Diverticulosis / SNOMED CT 0605849790 / Confirmed History of amputation of hallux / SNOMED CT 5665775110 / Confirmed History of colon polyps / SNOMED CT 6225138002 / Confirmed HLD (hyperlipidemia) / SNOMED CT 93197476 / Confirmed HTN (hypertension) / SNOMED CT 9279084292 / Confirmed Morbid obesity / SNOMED CT 979257135 / Confirmed PTSD (post-traumatic stress disorder) / SNOMED CT 02127565 / Confirmed Sleep apnea / SNOMED CT 659273477 / Confirmed Thromboangiitis obliterans / SNOMED CT 24538136 / Confirmed Unsteady gait / SNOMED CT 88255079 / Confirmed Venous insufficiency / SNOMED CT 089133142 / Confirmed, Active Problems (15) Abdominal pain in male Adhesion of intestine Benign prostatic hyperplasia (BPH) with urinary urgency Binge eating Diverticulosis History of amputation of hallux History of colon polyps HLD (hyperlipidemia) HTN (hypertension) Morbid obesity PTSD (post-traumatic stress disorder) Sleep apnea Thromboangiitis obliterans Unsteady gait Venous insufficiency Histories Social History Social & Psychosocial Habits Tobacco 11/10/2022 Tobacco Use: Never (less than 100 in l Smokeless tobacco use: Never . Physical Examination Vital Signs 01/29/2023 10:08 EDT Heart Rate Monitored 68 bpm Respiratory Rate Monitored 15 br/min Systolic Blood Pressure 136 mmHg Diastolic Blood Pressure 77 mmHg Mean Arterial Pressure, Cuff 97 mmHg SpO2 98 % 01/29/2023 10:00 EDT Heart Rate Monitored 70 bpm Respiratory Rate Monitored 17 br/min Systolic Blood Pressure 120 mmHg Diastolic Blood Pressure 67 mmHg Mean Arterial Pressure, Cuff 85 mmHg SpO2 97 % 01/29/2023 9:55 EDT Heart Rate Monitored 77 bpm Respiratory Rate Monitored 6 br/min Systolic Blood Pressure 130 mmHg Diastolic Blood Pressure 71 mmHg Mean Arterial Pressure, Cuff 91 mmHg SpO2 96 % 01/29/2023 9:53 EDT SpO2 94 % 01/29/2023 9:50 EDT Heart Rate Monitored 73 bpm Respiratory Rate Monitored 12 br/min Systolic Blood Pressure 115 mmHg Diastolic Blood Pressure 68 mmHg Mean Arterial Pressure, Cuff 84 mmHg SpO2 91 % 01/29/2023 9:49 EDT Temperature Temporal Artery 36.4 DegC Heart Rate Monitored 73 bpm Respiratory Rate Monitored 12 br/min Systolic Blood Pressure 115 mmHg Diastolic Blood Pressure 68 mmHg Blood Pressure Location Left arm Mean Arterial Pressure, Cuff 84 mmHg SpO2 91 % 01/29/2023 9:45 EDT Heart Rate Monitored 82 bpm bpm SpO2 100 % % 01/29/2023 9:44 EDT Systolic Blood Pressure 117 mmHg mmHg Diastolic Blood Pressure 65 mmHg mmHg 01/29/2023 9:42 EDT Systolic Blood Pressure 148 mmHg mmHg Diastolic Blood Pressure 90 mmHg mmHg 01/29/2023 9:11 EDT Temperature Temporal Artery 36.3 DegC Heart Rate Monitored 72 bpm Respiratory Rate Monitored 14 br/min Systolic Blood Pressure 140 mmHg Diastolic Blood Pressure 77 mmHg Blood Pressure Location Left arm SpO2 96 % Measurements from flowsheet : Measurements 01/29/2023 9:05 EDT Height/Length Measured 170.1 cm Height/Length Dosing 170.1 cm Weight Dosing 149.7 kg BSA Measured 2.66 m2 Body Mass Index Measured 51.74 kg/m2 Weight Measured 149.7 kg Airway: Mallampati classification: II (soft palate, fauces, uvula visible). Distance: Thyromental, Adequate. Respiratory: Lungs (more content not included)... Normal [facility] Comment on above: Result Comment: Elec tronically Signed By: Jose POE, Luis Antonio Mi\.br\Date and Time Signed: 01/29/23 17:42 EDT Coding Summary.on 01-25-2023 Coding Summary. CD:[id number] Ww+ PGhlYWQ+[id number] wwX1cM5KRVHcUOnzvILHZHX sGBuYfdzJtKE7dpQCpBLFf IC8+LA2oNHOmQfocjZCrd9A 3hHG1N55thu7mIVdrfTB0ZX VlYkAjqsqnh2efjGq4GSnhT mluOyBt BSNfmA99EEU8yI85Im04kNF yyGOgj3kkdQn6TwBtYZGrYF Q1oGcjPIwsj8VuESXfK97ln NZpu3C7 EFCweNuhdMQmSdFytQG8jU0 uFJnopcrjd0jhjbcsWux9zs 64tYAou4Q9hFM3W6SogbI8Z GJvbGQg IihhzYIPiW7ivabev7zlxxd uZjPmGIIiPJk0YRe7HFFfzT hlFoYfRR89SOB0HOElnsAnR 2FsLWFs zFdrZgI1p6J7Jn8KS4HKVad rZ5ZADCLXKLufeSK+PC90cj 63V7UcFzxwNhl9GQFpSBF0j PT8yV1c PTEqPZfna3P2gLT5W6VbhdD wep8mw4pzCEZfVHswJ00fwQ Wcc1N3YGHxzIR8EKRqcIicC iBzaG93 Oyc+KOMbgKvqe4QgJivxt4g yr4bufHb2KslrFDDwoyQdlN pkKAF0t9AsLz8lAXAsoKM4x EK0kT7s ByOkWzT8LKfvN701EhUezOR hBzuvX87uH0AarNY+PHRyPj y8DBXfmEcxWA8xG0IrGMZgb mctbGVm dDoiUP8cYBGhifvfYFNfbR2 gQDZlU6b5DlDvPtW3UIjsZ5 MxSTQndcrdUx95xG6yIjNuJ dE5LMqi C6EdsaH1GOJvdGHuQQeqVXW 2E57qd2H8DVWyPIRzTOX6zF I4iP9jdNvpjeagmTEnbTgid mVydGlj BJbvLCiaP342ISHiaQgkGuJ vZGluZyBEYXRlOiAgMDQvMj AvMjAyMzwvdGQ+GBCcXMB3s WxlPSAn sFXyUEjpRl3dyKkimGicTR6 rGEEpbnfsAJHolZ3mKQVhxN UelJgcER2aTUPyvemyd281D iAxMHB0 JUMssGKdD6FipJ5wZkCsAUA bBQLcH3EcnRWbMMwpQ128DT uiDoV1NMZrzpRuV1EuNSKab WduOiB0 c0I0Zr9Bv9QkudadA9ZtgTZ rLtTrVacvHFq8T8NdEagmkP I+CJ81RGKhMT50IZk9RQQ4s WxlPSdi AJSqV8NtcS4hRdZwHDZbEXJ kOyc+PHRhYmxlIHdpZHRoPS gcVBOjLlHgvAdiYE0jAs6jU GVyLWNv uMnutHBeFaGtp6orZRUeYZa kVI4svXahP7HcoMY5SDMur6 y5Mi25Y17kF0EhiQF+PGNvb RY2kGE2 jJ5pUwNtZvW8YTvaM052AzN spZQcOqlbm7xnf1orgUn2Oh D1EHJaupZknNqoGEW9j9WtA p61P16q IHdpZHRoPSIxNSUiIHZhbGl pqy6rkJ6rEc5+FBPopBL3zB W0fS6lWbMeNeF0EXawY520W nRvcCIv Ptwcl1nji1ydzWj8YvWsQVD synCkpFkkRBA5j8LvLa73E0 JrrAvlo4QnFxd9cf34bJOpp 2J5qMO4 Q8EtETDikpypgIRcgKyiAB7 kXIGohcaeZBDtcQ3rHPYfB9 f1DyNoMqK5AFruW7ApamR2R GJvbGQg ZVUjzIZAtS6spounv1kuqvy zPnZpHSWfAXd5YVu1QNUmoK tpWwMjDTZ3HnW0ZYE9wKOlt X0hgRxe eoohpT6gIuj+FRQ3fCIdhHF EFM1vFsqjlEF+WKIgYKI3cF uaMFtaTGXptC4hWBXhO6q6N iAwLjA1 ZIieQ8NlgbN1JOHtiMOjZTS abGUXqJ8ighkur0tpqapeDo QaOHOzWDo7SAy5VYTtoKpuC iBsZWZ0 McL9LRZ9wZBnsC6nzVdwvot saD1aSwu+AvepfUfwKSV4QS c1L1PhZgm4YFJfbEpdYS5ei GFkZGlu Cm9rnEmagZrqDX5iKNEjjcc ey574KoBcb6qxHQOzvVPxES zcLVC0Y24qy0E6XWQdXVEdY UC8cSU2 aG4ccAwknmawtTUelMfnolO hlOvbNKjaFFreL461RXKwiM caCmDxDZa3H6HtZwa7YKYxh UfsZH8o aBSgJCrwXg3ulDbwxNysSL0 rEFXcxqedj294RjPep8twAO YouOVkZPdsWRD6O36gd7N3E CMwMDAw NMR9hCN5qR9joIujqcgqiSP mdDsgdmVydGljYWwtYWxpZ2 18OOAgoKqgXuNgkLi8F1CaC et6GQVt pNtuRQ5cqQOzRPjsWi4tkEe kaParDF2gMHEhzalrx197Sp Fvu5ebGPJbrIVgCQhnJYW0B 99vy6S3 RPWrPCMoWYZ1zQD5kB8dfIp nbjogbGVmdDsgdmVydGljYW yxEGwkG106JTHtlKssQdGrd GllbnQg DLumRDb6P2IdGldtjEZ+PC9 1PEDfUZ36aADziEBhz2fzpZ o3FiLjMLPdEVN1iOpsMGsbb 3JkZXIt N57pgLUhg6V1SCLvdHfpzGW oWqOekBA8cC2vFUnjluecn9 tgfhfzVcost8esnn33rU41P 29sIHdp ZHRoPSIzMCUiIHZhbGlnbj0 mvQ9hXf7+VFAcyDD5aLD1dD 0iFUWtUkN0HGcnT270UeXzv CIvPjxj w2yhr9wvyYk8RoR4OSRnhlB vgWoiYBB5v5SuXs44X76jGQ dpZHRoPSIyMCUiIHZhbGlnb x5bhZ0r Ii8+ACUxfYS4pTF8fT2cXgY vSzT5ZAebU452XdGoeKJqDy guQ46rZ7TkrIK+IEOhHal2I CBzdHls SV0mnMFeFXgvBh0mQHD4BzK mHyHvPLmzR4OeTPQngdlzyf gipEX4BWGcQBMghB06Le6pg DogMTBw nSQAlG4izdlgr1ksylavEoW cCYIdZYk2FNe6NIAcfBihKi FsSTN7EtZ0LOS4rVLlbV3fv Glnbjog kX8oY2KrBMPwdveqMp16nU3 nEzCoLgF9VUojAyv+SEVSTU FOLCBEQVZJRDwvdGQ+PHRkI ZW2kVjh CWgjIJKxdI9oMWItF5b3KiV kAfF5HCidQ0NyGBEksyleGt 08cA3nSiPdWuB5VLvyG2Ygt zN0UZOe oPJoVHleCYZ1K86pk2G2HFP jJZDdSPF5yFR4sQ9lvOnpve ogbGVmdDsgdmVydGljYWwtY NpfH398 GVGjfDpkQfAmCwLzGiN2AGB 3Q7ThYtr7LYMylQdfQR4qkW UoFMzhWv3jhDrttXckJM9iJ TBpbjtw BFUnkW4bMUXepGBhxGczXL9 wREMrsmija743XlNaJIW3CV RyhVPxP1BrdC1eJbUsTMPsF GFhA3Hd jFKeUTjaY709DMauJqE6YVY silQqA6KyNCYveIsnSpI4v8 D4Je86WVTIBUByelkrpTG+P HRkIHN0 cOmpPIirRMSemR4tIRKcM5z 4AmCgMfI1LIrnY2SoKIXfsk gbAx94kQ5lAfOqAiM1KDhnM 6IsagL5 XUAdgSFwBHosZPC7N93db5N 7MCLiILBsJCC5bJS1yI2fnC lnbjogbGVmdDsgdmVydGljY WwtYWxp U253DPXjnMhjNe3vgRB6Q1Y pCnb8PFMkyWnvKM1ftEIjZE ryNk4iqRptvDcsAP3cHJDkd jtwYWRk oF5zJTUfxYQvyOmeCX2nHAW qjmrda501UlWgNTN3JFIdnN NyS5QhaQ0jPtEmFCVcGBNlG 3RleHQt OIicV477NMnxQsD9GDFvupN sS0GmJSNkzUonLdK4w5D5Zb 8YWAR0tdUjnvp7A4GwKhagb HI+PC90 JWJxMI74oCVodINrl1torPv 4VzZwTQHxFVO9jKnhYQolo6 QoJPGoV45khPWov0U2CXFkk GxhcHNl VjVlbSH3iN6nJLsueienn9s baqgrWsmys6gqrw10kV88K6 9sIHdpZHRoPSIzMCUiIHZhb Eeggx9s kR8uPq3+TCBfrYE7qLE4aH0 bFjJbZnM5MCxnE569YeXxrY SwMsmcu0kie7sxvLn1OcOxW SIgdmFs yInlMRU3t9PtWm92B84hCLr pZHRoPSIyMCUiIHZhbGlnbj 8zrS6xJm9+JW0uv2kgyb49b D48dHI+ QMOpMSX1lAbkGGwdWVAolO5 vJNapKsT6VLIrMgLetK57rJ JkHJfsLa8usGecyFqkVP2lK TBpbjtm d067JaWra4nqKFYyrBXsMOy rAUV7P42uh6R5LXZgTSWzOI X3zBQ1fV4rfNgqlsdafDLqg DsgdmVy lQbvHMojWYvtD995UXZgmUy sWtTwwRBcE1mimpPXGJ1fId wvdGQ+TINhBMX9nGklYBdcA XOcqY5g CFFnU4d2FlWpMsP1PXcmG6V iwoV9AQUbqSJlZOGyoZVSzL 0wszodz0swlcunKbVbVDLiV Oe7ZFb2 INPewZneSmLzRMQ5FgF5LVX 9wEPjfG4khTchdlwztV1qLi c+RklOOjwvdGQ+KIBdDMM9d WxlPSdw YEBnqX1rSWOrZ2p6KpPgLsJ 0NMdnR6BcaxK3IKRzmILtWL XowZEKtD0hwwumx1vcmhgbV zAwMDAw GCt0TVy4OVIbxDevUvYpWHD 7HaK5ULD8mQUrmY3opCkump rorU1nMag+TVJOOjwvdGQ+P HRkIHN0 sQemMLxhFRXgvO8pVUIgZ1p 1CpRyHjW6XCogY4PothQ1CU LqjXInPRKstGULrF2fadvji 2xvcjog XiZyIDOxPRo1HVg7JFXzhYq nLcJdGBX9BqX3BZI3yMKrpN 0vsCjdddacuS7qQnb+UGF5Z ZK3CY82 DQ95B0WrOrrblBUpqXG+PHR hYmxlIHdpZHRoPScxMDAlJy GtgZkjYI4ePj4qIKZlLARcg GxhcHNl PeWrm6pk (more content not included)... Normal [facility] [place] [place] 01[place]22-2023 Performing Instrument FT [facility] 2 Normal [facility] Comment on above: Performed By: #### 2 [id number] ####[place] [place] [address] SARS-CoV-2 (COVID-19) RNA PRASHANT+probe Ql (Resp) Not detected Normal Not Detected [facility] Comment on above: Result Comment: This test result should be correlated with clinical presentations and medical history by a healthcare provider to determine its clinical significance. This assay was performed by a reverse transcriptase real-time polymerase chain reaction (rt PCR) method on the Ion Core system. This test has been authorized only for the detection of nucleic acid from SARS-CoV-2, not for any other viruses or pathogens. This test has not been FDA cleared or approved. This test has been authorized by FDA under an Emergency Use Authorization (EUA). This test is only authorized for the duration of time the declaration on that circumstances exist justifying the authorization emergency use of in vitro diagnostic tests for detection and/or diagnosis of COVID-19 infection under section 564 (b) (1) of the Act, 21 U.S.C. 360 bbb-3 (b) (1), unless authorization is terminated or revoked sooner. Performed By: #### 2 [id number] ####[address] [address] SARS-CoV-2 (COVID-19) RNA PRASHANT+probe Ql (Unsp spec) Pass Normal Pass [facility] Comment on above: Performed By: #### 2 [id number] ####[address] [address] Specimen source Nom (Unsp spec) Nasal Normal [facility] Comment on above: Performed By: #### 2 [id number] ####[address] [address] Consent for Treatmenton 01-06 Consent for Treatment [id number] CD:127 Normal [facility] COVID-19 ([facility])on 01-19-2023 ADMITTED TO INTENSIVE CARE UNIT FOR CONDITION OF INTEREST:FIND:PT: NO Normal [facility] Comment on above: Performed By: #### 2 [id number] ####[place] [id number] EMPLOYED IN A HEALTHCARE SETTING:FIND:PT: Unknown Normal [facility] Comment on above: Performed By: #### 2 [id number] ####[place] [address] FIRST TEST FOR CONDITION OF INTEREST:FIND:PT: Unknown Normal [facility] Comment on above: Performed By: #### 2 [id number] ####[place] [address] HAS SYMPTOMS RELATED TO CONDITION OF INTEREST:FIND:PT: Unknown Normal [facility] Comment on above: Performed By: #### 2 [id number] ####[place] [address] HOSPITALIZED FOR CONDITION OF INTEREST:FIND:PT: NO [facility] Comment on above: Performed By: #### 2 [id number] ####[place] [address] STATUS:FIND:PT: NO [facility] Comment on above: Performed By: #### 2 [id number] ####[place] [address] RESIDES IN A CONGREGATE CARE SETTING:FIND:PT: Unknown Normal [facility] Comment on above: Performed By: #### 2 [id number] ####[place] [address] Physician Referralon 023 Physician Referral [id number] :127 Normal [facility] Ambulatory Visit Summaryon 0 11-10-2022 Ambulatory Visit Summary JANET CRUZ :1950 Visit Date:11/10/2022 Ambulatory Visit Instructions Your Diagnosis History of colon polyps Your Care Team Attending Physician - Karina Oneal CNP Primary Care Physician - Jaki Cardoso This Is Your Medications List Contact prescribing physician if questions or concerns acetaminophen amlodipine cilostazol dorzolamide-timolol ophthalmic fondaparinux hydrochlorothiazide latanoprost ophthalmic lisinopril pravastatin trazodone venlafaxine warfarin Procedures Performed Colonoscopy. Discharge Vitals Temperature (Temporal Artery) 36.2 ?C Heart Rate (Peripheral) 70 Blood Pressure 108/74 Height 170.1 cm Height 67 in Weight 149.7 kg Weight 329.34 lb BMI 51.74 What to do next You Need to Schedule the Following Appointments Follow Up with Karina Oneal CNP When: Within 1 to 2 weeks Comments: Following colonoscopy. Where: Medications What When Instructions Unchanged acetaminophen Contact prescribing physician if questions or concerns Unchanged amlodipine Contact prescribing physician if questions or concerns Unchanged cilostazol Contact prescribing physician if questions or concerns Unchanged dorzolamide-timolol ophthalmic Contact prescribing physician if questions or concerns Unchanged fondaparinux Contact prescribing physician if questions or concerns Unchanged hydrochlorothiazide Contact prescribing physician if questions or concerns Unchanged latanoprost ophthalmic Contact prescribing physician if questions or concerns Unchanged lisinopril Contact prescribing physician if questions or concerns Unchanged pravastatin Contact prescribing physician if questions or concerns Unchanged trazodone Contact prescribing physician if questions or concerns Unchanged venlafaxine Contact prescribing physician if questions or concerns Unchanged warfarin Contact prescribing physician if questions or concerns Allergies Adhesive Bandage (Eruption) Flagyl (Unknown) Mushrooms (Nasal congestion) cefOXitin (Hypotension) Problems Ongoing - Any problem that you are currently receiving treatment for. Abdominal pain in male Adhesion of intestine Benign prostatic hyperplasia (BPH) with urinary urgency Binge eating Diverticulosis History of amputation of hallux History of colon polyps HLD (hyperlipidemia) HTN (hypertension) Morbid obesity PTSD (post-traumatic stress disorder) Sleep apnea Thromboangiitis obliterans Unsteady gait Venous insufficiency Education Materials Colonoscopy, Adult A colonoscopy is an exam to look at the entire large intestine. During the exam, a lubricated, flexible tube that has a camera on the end of it is inserted into the anus and then passed into the rectum, colon, and other parts of the large intestine. You may have a colonoscopy as a part of normal colorectal screening or if you have certain symptoms, such as: ? Lack of red blood cells (anemia). ? Diarrhea that does not go away. ? Abdominal pain. ? Blood in your stool (feces). A colonoscopy can help screen for and diagnose medical problems, including: ? Tumors. ? Polyps. ? Inflammation. ? Areas of bleeding. Tell a health care provider about: ? Any allergies you have. ? All medicines you are taking, including vitamins, herbs, eye drops, creams, and oqry-rdz-keafjhw medicines. ? Any problems you or family members have had with anesthetic medicines. ? Any blood disorders you have. ? Any surgeries you have had. ? Any medical conditions you have. ? Any problems you have had passing stool. What are the risks? Generally, this is a safe procedure. However, problems may occur, including: ? Bleeding. ? A tear in the intestine. ? A reaction to medicines given during the exam. ? Infection (rare). What happens before the procedure? Eating and drinking restrictions Follow instructions from your health care provider about eating and drinking, which may include: ? A few days before the procedure ? follow a low-fiber diet. Avoid nuts, seeds, dried fruit, raw fruits, and vegetables. ? 1?3 days before the procedure ? follow a clear liquid diet. Drink only clear liquids, such as clear broth or bouillon, black coffee or tea, clear juice, clear soft drinks or sports drinks, gelatin dessert, and popsicles. Avoid any liquids that contain red or purple dye. ? On the day of the procedure ? do not eat or drink anything starting 2 hours before the procedure, or within the time period that your health care provider recommends. Up to 2 hours before the procedure, you may continue to drink clear liquids, such as water or clear fruit juice. Bowel prep If you were prescribed an oral bowel prep to clean out your colon: ? Take it as told by your health care provider. Starting the day before your procedure, you will need to drink a large amount of medi (more content not included)... Normal [facility] Consent for Procedure/Surger yon 11-10-2022 Consent for Procedure/Surgery [id number] D:127 Normal [facility] Gastroenterology Office/Clin ic Noteon 11-10-2022 Gastroenterology Office/Clinic Note Chief Complaint Colonoscopy HPI Staff Patient is a 72 year old male referred by [place] to schedule a colonoscopy. Patient has prep for procedure. History of Present Illness Patient is a 72-year-old male who presents for referral from [place] for colonoscopy. Review of outside records from [place] indicated patient with history of ischemic colitis. Patient previous colonoscopy 07/2017 that revealed diverticulosis, few small lipomas in ascending, 4 polyps removed from colon that were tubular adenomas, random colon biopsy showed no significant pathologic changes. Patient reports hx. SBO in 2018 and reportedly had 14 inches of small intestine removed. PMH of HTN, HLD- managed by patient's PCP. Family history of colon cancer: Denies. Family history of colon polyps: Unknown per patient. Personal history of colon cancer: Denies. Personal history of colon polyps: Yes, see above. Patient takes Coumadin daily- Hx. Factor V Leiden- managed by patient's PCP and Anticoagulation Clinic. During today's visit, patient reports he is doing well. Is having 1 formed BM daily. Denies change in bowel habits, black/bloody stools, nausea/vomiting, diarrhea, fevers/chills, and unintentional weight loss. Denies having any other GI complaints. Review of Systems PHQ Score Initial Depression Screen Score: 0 ROS - Provider Constitutional: no fever, no chills. Skin: no Jaundice. ENMT: Denies dysphagia and heartburn. Respiratory: no shortness of breath. Cardiovascular: no chest pain. Gastrointestinal: no nausea, no vomiting, no diarrhea, no GI bleeding. Physical Exam Vitals & Measurements T: 36.2 ?C(Temporal Artery) HR: 70(Peripheral) BP: 108/74 HT: 67 in HT: 170.1 cm WT: 149.7 kg WT: 329.34 lb BMI: 51.74 General: Well developed, well nourished, in no acute distress Head: Normocephalic/atraumati c Lungs: Normal respiratory effort and clear to auscultation Cardio: Regular rate and rhythm, normal S1 and S2, no murmur, no rub Abdomen: Soft, non-distended, non-tender. Normoactive bowel sounds present in all 4 abdominal quadrants, bilaterally. Mental Status: Alert and oriented x3. Normal mood and affect Assessment/Plan 1. History of colon polyps (Z86.010: Personal history of colonic polyps) Previous colonoscopy 07/2017 revealed 4 polyps removed from colon that were tubular adenomas, random colon biopsy showed no significant pathologic changes-see HPI for further details regarding. Reports hx. SBO in 2018 and reportedly had 14 inches of small intestine removed. Ordered colonoscopy. Patient takes Coumadin daily?will request hold time recommendations of Coumadin from prescribing provider prior to colonoscopy- filled out fax medication hold request form to be faxed to prescribing provider of Coumadin. Has colon prep from [place]. Ordered: Colonoscopy (Hospital Procedure) Follow-up With When Contact Information Karina Oneal CNP Within 1 to 2 weeks Additional Instructions: Following colonoscopy. Patient Education Colonoscopy, Adult Problem List/Past Medical History Ongoing Abdominal pain in male Adhesion of intestine Benign prostatic hyperplasia (BPH) with urinary urgency Binge eating Diverticulosis History of amputation of hallux History of colon polyps HLD (hyperlipidemia) HTN (hypertension) Morbid obesity PTSD (post-traumatic stress disorder) Sleep apnea Thromboangiitis obliterans Unsteady gait Venous insufficiency Historical No qualifying data Procedure/Surgical History Colonoscopy. Medications acetaminophen amlodipine cilostazol dorzolamide-timolol ophthalmic fondaparinux hydrochlorothiazide latanoprost ophthalmic lisinopril pravastatin trazodone venlafaxine warfarin Allergies Adhesive Bandage (Eruption) Flagyl (Unknown) Mushrooms (Nasal congestion) cefOXitin (Hypotension) Social History Tobacco Never (less than 100 in lifetime) Tobacco Use:. Never Smokeless Tobacco Use:., 11/10/2022 Family History Cardiac arrest: Mother. Diabetes mellitus type 2: Father. Immunizations Vaccine Date Status influenza virus vaccine, inactivated 08/24/2022 Recorded pneumococcal 13-valent vaccine 07/18/2021 Recorded Normal [facility] Comment on above: Result Comment: Elec tronically Signed By: Karina Oneal CNP\.br\Date and Time Signed: 11/10/22 08:32 EST Patient Educationon 11-10-19 Patient Education Radiology Colonoscopy, Adult A colonoscopy is an exam to look at the entire large intestine. During the exam, a lubricated, flexible tube that has a camera on the end of it is inserted into the anus and then passed into the rectum, colon, and other parts of the large intestine. You may have a colonoscopy as a part of normal colorectal screening or if you have certain symptoms, such as: ? Lack of red blood cells (anemia). ? Diarrhea that does not go away. ? Abdominal pain. ? Blood in your stool (feces). A colonoscopy can help screen for and diagnose medical problems, including: ? Tumors. ? Polyps. ? Inflammation. ? Areas of bleeding. Tell a health care provider about: ? Any allergies you have. ? All medicines you are taking, including vitamins, herbs, eye drops, creams, and [id number] medicines. ? Any problems you or family members have had with anesthetic medicines. ? Any blood disorders you have. ? Any surgeries you have had. ? Any medical conditions you have. ? Any problems you have had passing stool. What are the risks? Generally, this is a safe procedure. However, problems may occur, including: ? Bleeding. ? A tear in the intestine. ? A reaction to medicines given during the exam. ? Infection (rare). What happens before the procedure? Eating and drinking restrictions Follow instructions from your health care provider about eating and drinking, which may include: ? A few days before the procedure ? follow a low-fiber diet. Avoid nuts, seeds, dried fruit, raw fruits, and vegetables. ? 1?3 days before the procedure ? follow a clear liquid diet. Drink only clear liquids, such as clear broth or bouillon, black coffee or tea, clear juice, clear soft drinks or sports drinks, gelatin dessert, and popsicles. Avoid any liquids that contain red or purple dye. ? On the day of the procedure ? do not eat or drink anything starting 2 hours before the procedure, or within the time period that your health care provider recommends. Up to 2 hours before the procedure, you may continue to drink clear liquids, such as water or clear fruit juice. Bowel prep If you were prescribed an oral bowel prep to clean out your colon: ? Take it as told by your health care provider. Starting the day before your procedure, you will need to drink a large amount of medicated liquid. The liquid will cause you to have multiple loose stools until your stool is almost clear or light green. ? If your skin or anus gets irritated from diarrhea, you may use these to relieve the irritation: ? Medicated wipes, such as adult wet wipes with aloe and vitamin E. ? A skin-soothing product like petroleum jelly. ? If you vomit while drinking the bowel prep, take a break for up to 60 minutes and then begin the bowel prep again. If vomiting continues and you cannot take the bowel prep without vomiting, call your health care provider. ? To clean out your colon, you may also be given: ? Laxative medicines. ? Instructions about how to use an enema. General instructions ? Ask your health care provider about: ? Changing or stopping your regular medicines or supplements. This is especially important if you are taking iron supplements, diabetes medicines, or blood thinners. ? Taking medicines such as aspirin and ibuprofen. These medicines can thin your blood. Do not take these medicines before the procedure if your health care provider tells you not to. ? Plan to have someone take you home from the hospital or clinic. What happens during the procedure? ? An IV may be inserted into one of your veins. ? You will be given medicine to help you relax (sedative). ? To reduce your risk of infection: ? Your health care team will wash or sanitize their hands. ? Your anal area will be washed with soap. ? You will be asked to lie on your side with your knees bent. ? Your health care provider will lubricate a long, thin, flexible tube. The tube will have a camera and a light on the end. ? The tube will be inserted into your anus. ? The tube will be gently eased through your rectum and colon. ? Air will be delivered into your colon to keep it open. You may feel some pressure or cramping. ? The camera will be used to take images during the procedure. ? A small tissue sample may be removed to be examined under a microscope (biopsy). ? If small polyps are found, your health care provider may remove them and have them checked for cancer cells. ? When the exam is done, the tube will be removed. The procedure may vary among health care providers and hospitals. What happens after the procedure? ? Your blood pressure, heart rate, breathing rate, and blood oxygen level will be monitored until the medicines you were given have worn off. ? Do not drive for 24 hours after the exam. ? You may have a small amount of blood in your stool. ? You may pass gas and have mild abdominal cramping or bloating due to the air t (more content not included)... Normal [facility] CULTURE URINEon 11-06-2022 CULTURE URINE Isolate 1 Escherichia coli >100,000 cfu/ml of ORGANISM 1 Escherichia coli ANTIBIOTIC M.I.C RX STATUS Ampicillin 4 S F Ampicillin/Sulbactam <=2 S F Piperacillin/Tazobactam <=4 S F Cefazolin <=4 S F Ceftazidime <=1 S F Ceftriaxone <=1 S F Ertapenem <=0.5 S F Imipenem <=0.25 S F Amikacin <=2 S F Gentamicin <=1 S F Tobramycin <=1 S F Ciprofloxacin <=0.25 S F Levofloxacin 0.25 S F Nitrofurantoin <=16 S F Trimethoprim/Sulfametho xazole <=[address] [facility] Comment on above: Performed By: #### U RCX #### [facility] [address] [place] [address] Dr. Marylou Medellin PROTIMEon 11-04-2022 INR Coag (PPP) [Relative time] 2.16 {INR} Normal [facility] Comment on above: Performed By: #### P T #### [facility] [address] [place] [address] Dr. Marylou Medellin INR GUIDELINES SEE BELOW Normal [facility] Comment on above: Result Comment: SOLITARIO RED INR: 2.0 - 3.0 CONDITIONS NOT LISTED BELOW 2.5 - 3.5 FOR PROSTHETIC HEART VALVE REPLACEMENT 2.5 - 3.5 RECURRENT THROMBOSIS Performed By: #### P T #### [facility] [address] [place] [address] Dr. Marylou Medellin PT Coag (PPP) [Time] 21.9 s Critically high 9.0-11.6 [facility] Comment on above: Performed By: #### P T #### [facility] [address] [place] [address] Dr. Marylou Medellin CBC AUTO DIFFon 11-03-2022 BASO # 0.1 103/ul Normal 0.0-0.1 [facility] Comment on above: Performed By: #### C BC #### [facility] [address] [place] [address] Dr. Marylou Medellin Basophils/100 WBC (Bld) 0.7 % Normal 0.2-2.0 [facility] Comment on above: Performed By: #### C BC #### [facility] [address] [place] [address] Dr. Marylou Medellin EO # 0.1 103/ul Normal 0.0-0.7 [facility] Comment on above: Performed By: #### C BC #### [facility] [address] [place] [address] Dr. Marylou Medellin Eosinophils/100 WBC (Bld) 1.3 % Normal 0.9-7.0 [facility] Comment on above: Performed By: #### C BC #### [facility] [address] [place] [address] Dr. Marylou Medellin Erythrocyte distribution width (RBC) [Ratio] 13.1 % Normal 11.0-15.0 [facility] Comment on above: Performed By: #### C BC #### [facility] [address] [place] [address] Dr. Marylou Medellin Hematocrit (Bld) [Volume fraction] 36.3 % Critically low 42.0-54.0 [facility] Comment on above: Performed By: #### C BC #### [facility] [address] [place] [address] Dr. Marylou Medellin Hemoglobin (Bld) [Mass/Vol] 13.4 g/dL Critically low 14.0-18.0 [facility] Comment on above: Performed By: #### C BC #### [facility] [address] [place] [address] Dr. Marylou Medellin IG # 0.02 10e3/ul Normal 0.00-0.03 [facility] Comment on above: Performed By: #### C BC #### [facility] [address] [place] [address] Dr. Marylou Medellin IG % 0.3 % Normal 0.0-0.5 [facility] Comment on above: Performed By: #### C BC #### [facility] [address] [place] [address] Dr. Marylou Medellin LYMPH # 1.0 103/ul Critically low 1.2-3.8 [facility] Comment on above: Performed By: #### C BC #### [facility] [address] [place] [address] Dr. Marylou Medellin Lymphocytes/100 WBC (Bld) 14.1 % Critically low 20.5-60.0 [facility] Comment on above: Performed By: #### C BC #### [facility] [address] [place] [address] Dr. Marylou Medellin MANUAL DIFF REQ NO Normal [facility] Comment on above: Performed By: #### C BC #### [facility] [address] [place] [address] Dr. Marylou Medellin MCH (RBC) [Entitic mass] 29.6 pg Normal 25.9-34.0 [facility] Comment on above: Performed By: #### C BC #### [facility] [address] [place] [address] Dr. Marylou Medellin MCHC (RBC) [Mass/Vol] 36.9 g/dL Critically high 29.9-35.2 [facility] Comment on above: Performed By: #### C BC #### [facility] [address] [place] [address] Dr. Marylou Medellin MCV (RBC) [Entitic vol] 80.3 fL Normal 80.0-94.0 [facility] Comment on above: Performed By: #### C BC #### [facility] [address] [place] [address] Dr. Marylou Medellin MONO # 0.6 103/ul Normal 0.3-0.8 [facility] Comment on above: Performed By: #### C BC #### [facility] [address] [place] [address] Dr. Marylou Medellin Monocytes/100 WBC (Bld) 9.2 % Normal 1.7-12.0 [facility] Comment on above: Performed By: #### C BC #### [facility] [address] [place] [address] Dr. Marylou Medellin NEUT # 5.0 103/ul Normal 1.4-6.5 [facility] Comment on above: Performed By: #### C BC #### [facility] [address] [place] [address] Dr. Marylou Medellin Neutrophils/100 WBC (Bld) 74.4 % Normal 43.0-75.0 [facility] Comment on above: Performed By: #### C BC #### [facility] [id number] Marylou Medellin Platelet mean volume (Bld) [Entitic vol] 8.8 fL Critically low 9.5-13.5 [facility] Comment on above: Performed By: #### C BC #### [facility] [address] [place], [place] [address] Dr. Marylou Medellin PLT 180 103/ul Normal 150-450 [facility] Comment on above: Performed By: #### C BC #### [facility] [id number] Marylou Medellin RBC 4.52 106/ul Critically low 4.70-6.10 [facility] Comment on above: Performed By: #### C BC #### [facility] [id number] Marylou Medellin WBC 6.7 103/ul Normal 4.0-11.0 [facility] Comment on above: Performed By: #### C BC #### [facility] [address] [address] LSPINE WO CONon 3 CT LSPINE WO CON EXAM: CT LSPINE WO C ON HISTORY: Back pain radiating into right hip COMPARISON: Abdomen and pelvic CT 10/12/2017 TECHNIQUE: Axial CT imaging is performed through the lumbar spine. Sagittal and coronal reformatted/reconstruct ed sequences were additionally. FINDINGS: Relative maintenance of the normal lumbar lordosis. Vertebral body heights are unremarkable. Stable anterolisthesis of L4 and L5. Age-related intervertebral disc space narrowing and moderate facet arthrosis. No prevertebral soft tissue edema. No visualized disc herniation. Atherosclerosis of the vascular structures. Stable bilateral renal cysts. No bowel obstruction. IMPRESSION: No acute abnormality Electronically authenticated by: JANET YARBROUGH Date: 2022-11-03 18:00 Normal [facility] Covid-19 PCR (CVDTB)on 10-09 SARS-CoV-2 (COVID-19) RNA PRASHANT+probe Ql (Unsp spec) Not detected Normal NOT DETECTED [facility] Comment on above: Result Comment: When diagnostic testing is negative, the possibility of a false negative should be considered in the context of a patient's recent exposures and the presence of clinical signs and symptoms consistent with SARS-CoV-2. This test is not yet approved or cleared by the [place] FDA. When there are no FDA-approved or cleared tests available, and other criteria are met, FDA can make tests available under an emergency access mechanism called an Emergency Use Authorization (EUA). The EUA for this test is supported by the [place] of Health and Human Service's declaration that circumstances exist to justify the emergency use of in vitro diagnostics for the detection and/or diagnosis of the virus that causes COVID-19. This EUA will remain in effect for the duration of the COVID-19 declaration justifying emergency of IVDs, unless it is terminated or revoked by the FDA (after which the test may no longer be used). Performed By: #### C VDTB #### [facility] [address] [place] [address] Dr. Marylou Medellin ER URINE PROFILEon 3 Bilirubin Ql (U) Negative Normal NEGATIVE [facility] Comment on above: Performed By: #### U MICRO, ERUR #### [facility] [address] [place] [address] Dr. Marylou Medellin Clarity (U) CLEAR Normal CLEAR [facility] Comment on above: Performed By: #### U MICRO, ERUR #### [facility] [address] [place] [address] Dr. Marylou Medellin Color (U) YELLOW Normal YELLOW [facility] Comment on above: Performed By: #### U MICRO, ERUR #### [facility] [address] [place] [address] Dr. Marylou Medellin ERUAHD A micrscopic examination will be performed if indicated. Normal [facility] Comment on above: Performed By: #### U MICRO, ERUR #### [facility] [address] [place] [address] Dr. Marylou Medellin Glucose Ql (U) Negative Normal NEGATIVE [facility] Comment on above: Performed By: #### U MICRO, ERUR #### [facility] [address] [place] [address] Dr. Marylou Medellin Hemoglobin Ql (U) Negative Normal NEGATIVE [facility] Comment on above: Performed By: #### U MICRO, ERUR #### [facility] [address] [address] [address] Marylou Medellin Ketones Ql (U) TRACE Abnormal NEGATIVE [facility] Comment on above: Performed By: #### U MICRO, ERUR #### [facility] [address] [place] [address] Dr. Marylou Medellin LEUKOCYTES SMALL Abnormal NEGATIVE [facility] Comment on above: Performed By: #### U MICRO, ERUR #### [facility] [address] [address] [address] Marylou Medellin Nitrite Ql (U) Positive Abnormal NEGATIVE [facility] Comment on above: Performed By: #### U MICRO, ERUR #### [facility] [address] [place] [address] Dr. Marylou Medellin pH (U) 5.0 [pH] Normal 5-9 [facility] Comment on above: Performed By: #### U MICRO, ERUR #### [facility] [address] [place] [address] Dr. Marylou Medellin SPEC GRAVITY 1.025 Normal 1.005-<=1.025 [facility] Comment on above: Performed By: #### U MICRO, ERUR #### [facility] [address] [place] [address] Dr. Marylou Medellin UA PROTEIN Negative Normal NEGATIVE/ TRACE [facility] Comment on above: Performed By: #### U MICRO, ERUR #### [facility] [address] [address] [address] Marylou Medellin UR MICRO IND INDICATED Normal [facility] Comment on above: Performed By: #### U MICRO, ERUR #### [facility] [address] [place] [address] Dr. Marylou Medellin Urobilinogen Qn (U) 1.0 {Daniel'U}/dL Normal 0.2 - 1. 0 [facility] Comment on above: Performed By: #### U MICRO, ERUR #### [facility] [address] [place] [address] Dr. Marylou Medellin PROF CHEM 8 (BAS METB)on Anion gap [Moles/Vol] 14.1 mmol/L Normal [facility] Comment on above: Performed By: #### B MP #### [facility] [address] [address] [address] Marylou Medellin Calcium [Mass/Vol] 8.8 mg/dL Normal 8.5-10.1 [facility] Comment on above: Performed By: #### B MP #### [facility] [address] [address] [address] Marylou Medellin Chloride [Moles/Vol] 103 mmol/L Normal 98-107 [facility] Comment on above: Performed By: #### B MP #### [facility] [address] [place] [address] Dr. Marylou Medellin CO2 [Moles/Vol] 27.8 mmol/L Normal 21.0-32.0 [place] Comment on above: Performed By: #### B MP #### [facility] [address] [place] [address] Dr. Marylou Medellin Creatinine [Mass/Vol] 0.95 mg/dL Normal 0.70-1.30 [facility] Comment on above: Performed By: #### B MP #### [facility] [address] [place] [address] Dr. Marylou Medellin EGFR-AF NIGERIEN >60 Normal >=[address] [facility] Comment on above: Performed By: #### B MP #### [facility] [address] [place] [address] Dr. Marylou Medellin EGFR-NON AF NIGERIEN >60 Normal >=60 [facility] Comment on above: Performed By: #### B MP #### [facility] [address] [place] [address] Dr. Marylou Medellin Glucose [Mass/Vol] 117 mg/dL Critically high 74-106 [facility] Comment on above: Performed By: #### B MP #### [facility] [address] [place] [address] Dr. Marylou Medellin Potassium [Moles/Vol] 3.9 mmol/L Normal 3.5-5.1 [facility] Comment on above: Performed By: #### B MP #### [facility] [address] [place] [address] Dr. Marylou Medellin Sodium [Moles/Vol] 141 mmol/L Normal 136-145 [facility] Comment on above: Performed By: #### B MP #### [facility] [address] [address] [address] Marylou Medellin Urea nitrogen [Mass/Vol] 16.0 mg/dL Normal 7.0-18.0 [facility] Comment on above: Performed By: #### B MP #### [facility] [address] [place] [address] Dr. Marylou Medellin Urea nitrogen/Creatinine [Mass ratio] 16.8 mg/mg Normal [facility] Comment on above: Performed By: #### B MP #### [facility] [address] [place] [address] Dr. Marylou Medellin URINE MICROSCOPIC ONLYon BACTERIA LARGE Abnormal NONE SEEN [facility] Comment on above: Performed By: #### U MICRO, ERUR #### [facility] [address] [place] [address] Dr. Marylou Medellin Bacteria identified Cx Nom (U) INDICATED Normal [facility] Comment on above: Performed By: #### U MICRO, ERUR #### [facility] [address] [place] [address] Dr. Marylou Medellin CA OX CRYSTALS FEW Normal [facility] Comment on above: Performed By: #### U MICRO, ERUR #### [facility] [address] [place] [address] Dr. Marylou Medellin CAST SEEN Abnormal NONE SEEN [facility] Comment on above: Performed By: #### U MICRO, ERUR #### [facility] [address] [place] [address] Dr. Marylou Medellin Crystals LM Nom (Urine sed) SEEN Abnormal NONE SEEN [facility] Comment on above: Performed By: #### U MICRO, ERUR #### [facility] [address] [address] [address] Marylou Medellin Epithelial cells LM Ql (Urine sed) FEW Abnormal NONE SEEN /RARE [facility] Comment on above: Performed By: #### U MICRO, ERUR #### [facility] [address] [address] [address] Marylou Medellin HYALINE CAST RARE Normal [facility] Comment on above: Performed By: #### U MICRO, ERUR #### [facility] [address] [address] [address] Marylou Medellin MUCOUS NONE SEEN Normal NONE SEEN [facility] Comment on above: Performed By: #### U MICRO, ERUR #### [facility] [address] [address] [address] Marylou Medellin RBC 0-2 Normal 0-2 [facility] Comment on above: Performed By: #### U MICRO, ERUR #### [facility] [address] [place] [address] Dr. Marylou Medellin WBC 10-20 Abnormal NONE SEEN [facility] Comment on above: Performed By: #### U MICRO, ERUR #### [facility] [address] [place] [address] Dr. Marylou Medellin Physician Referralon 022 Physician Referral [id number] D:127 Normal [facility] MR head/brain wo conon 04-07 MR head/brain wo con [facility] [address] MRI Report Signed Patient: Janet Cruz MR#: [id number] 13 : 1950 Acct:[id number] Age/Sex: 70 / M ADM Date: 04/07/21 Loc: MR Room: Type: [facility] Attending Dr: Janae Stoddard (Clinic) , [facility] Ordering Provider: Janae Stoddard DO Date of Service: 04/07/21 MR/MR head/brain wo con: ABNORMAL CT BRAIN Copies to: Janae Stoddard DO MRI head 04/07/2021. CLINICAL DATA: Dizziness. Syncope. TECHNIQUE: MRI of the head was performed without contrast. COMPARISON: CT head 12/17/2020 ([facility]). FINDINGS: There is generalized parenchymal volume loss. There are also nonspecific cerebral white matter changes most consistent with chronic microvascular ischemic disease. There is no restricted diffusion to indicate acute ischemia or infarction. There is an empty sella turcica. No intracranial mass or mass effect is identified. No abnormal extra-axial fluid collection is seen. There is mild mucoperiosteal thickening in the right and left maxillary sinuses and in the ethmoid air cells. The mastoids appear unremarkable. MR/MR head/brain wo con IMPRESSION: 1. Parenchymal volume loss and chronic microvascular ischemic changes. 2. No acute intracranial abnormality. Impression dictated by: Wellington Pantoja Jr., M.D.04/07/2021 1:08 PM Dictation Location: [place] [address] Transcribed By: [facility] 04/07/21 1308 Dictated By: Wellington Pantoja Jr, MD 04/07/21 1300 Signed By: 04/07/[address] 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 PROCEDURES: Pars plana vitrectomy with gas-fluid exchange and endolaser, left eye. ANESTHESIA: Monitored. SURGEON: Brooklyn López MD REASON FOR OPERATION: The patient has noticed decreasing visual field in the left eye over the last several days. He was found to have superior retinal detachment which had not yet entered the posterior pole. He has elected to undergo surgery in the hopes of maintaining his good vision. He understands the risks include, but are not limited to, bleeding, infection, recurrent retinal detachment, cataract formation. DESCRIPTION OF PROCEDURE: The patient was brought to the operating room in good condition. He was administered local anesthetic and prepped and draped in the usual fashion. 25-gauge vitrectomy trocars were placed through the pars plana in the usual quadrants. The infusion was attached to the inferotemporal site. The light pipe and ocutome were placed through the superior sites. Vitreous was removed from anterior to posterior and then trimmed out peripherally as far as could be seen. Scleral depression was used in the inferior 180 degrees to trim vitreous near the vitreous base. Retinotomy was selected just outside of the posterior pole at 1 o'clock. Air-fluid exchange was done, which reattached the retina nicely. Endolaser was placed around the retinotomy and around the retinal tears. Endolaser was placed in the equator to the ora 360 degrees, except for 3 o'clock and 9 o'clock. Residual fluid was aspirated from over the optic nerve head. The air was exchanged for 14% SF6. Trocars were removed, and the sites were self-sealing. 50 mg of ceftazidime was injected sub-Tenon's in the inferotemporal quadrant. The eye was patched in the usual fashion and the patient taken to the recovery room in good condition. BROOKLYN LÓPEZ [id number] Doc#: [id number] CC: Normal [facility] Creatinine W/GFR Point of Ca reon 06-19-2019 Creatinine [Mass/Vol] 0.86 mg/dL 0.51 - 1.19 mg/dL [place] GFR Non- >60 >60 mL/min [place] GFR/1.73 sq M predicted among non-blacks MDRD (S/P/Bld) [Vol rate/Area] mL/min/{1.73_m2} >60 mL/min [place] GFR/1.73 sq M predicted among non-blacks MDRD (S/P/Bld) [Vol rate/Area] [place] Comment on above: Average GFR for 60-6 9 years old: 85 mL/min/1.73sq m Chronic Kidney Disease: <60 mL/min/1.73sq m Kidney failure: <15 mL/min/1.73sq m eGFR calculated using average adult body mass. Additional eGFR calculator available at: http://www.[employer]/multiple_crcl_2012.htm POCT Glucoseon 06-19-2019 Glucose [Mass/Vol] 105 mg/dL High 74 - 100 mg/dL [place] Interpretation and review of laboratory results Abnormal [place] POCT INRon 06-19-2019 INR Coag (Bld) [Relative time] 1.1 {INR} [place] Comment on above: Therapeutic Range: Moderate Anticoagulant Intensity: INR = 2.0-3.0 High Anticoagulant Intensity: INR = 2.5-3.5 PT Coag (PPP) [Time] 13.6 s [place], [place] SURGICAL PATHOLOGYon 018 SURGICAL PATHOLOGY Specimen #: [id number] Physician: VALENTE VALENZUELA [facility], [place], [place];[id number] (10/17/2017)Ileum, 45 cm in length, resection (A-I)- 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 - Inflammatory-type polyps, negative for dysplasia.- Fibrous serosal adhesions.- Margins of resection, negative for ischemic changes.- One lymph node, negative for neoplasm.COMMENTThank you for allowing us to the opportunity to review this case inconsultation representing slides from Janet Cruz, a 66-year-old gentlemanwith a reported history of Buerger's disease and factor V Leiden whoreportedly had a history of mesenteric ischemia for approximately 15 years. Reportedly, he is experiencing abdominal pain and unable to tolerate foodand has lost 40 pounds.The ileum resection shows a segment of colon with a stricture [id number] cm in length per the provided gross report. The area of stricture showssegments of ileum with extensive ulceration, submucosal and muscularispropria fibrosis, and transmural lymphoid aggregates. Pyloric glandmetaplasia is identified and there are multiple inflammatory-type polyps. There is no evidence of granulomas or dysplasia. The sampled mesentericvessels show mild intimal hyperplasia, however, evidence of vasculitis orthrombosis is not identified. If additional mesenteric fibroadipose tissueis present in the gross specimen, submitting additional sections of themesenteric vessels may be helpful in ruling out involvement by a vasculiticdisorder. Thank you for sending this case in consultation. Please do not hesitate tocontact the GI Consultation Service at [phone] with questions or ifadditional follow up information becomes available. This case was reviewedin conjunction with the GI pathology fellow, Ollie Padilla M.D.JRG/EW/lh/10-29-2017 Eric Brandon M.D.(Electronic Signature) SPECIMEN SUBMITTEDA: 9 SLIDES [id number] CLINICAL DATAHistory of chronic mesenteric ischemia.Patient ID #: Date of Report: 10/29/2017Date of Procedure: 10/26/2017Date of Receipt: 10/26/2017Submitted by: VALENTE BAUERocation: Diagnostic [facility] at [facility], [address] [place] [address]. [facility] Comment on above: Performed By: #### S ####See report for performing lab information. Vital Signs Date Time Vital Sign Value Performing Clinician Facility 04-23-2023 11:20-0400 Blood Pressure Location Gannboby MARTÍNEZ [facility] 04-23-2023 11:20-0400 Diastolic blood pressure 87 mm[Hg] [facility] 04-23-2023 11:20-0400 Heart rate 63 /min Gann SALAM [facility] 04-23-2023 11:20-0400 Mean blood pressure 104 mm[Hg] Gann SALAM [facility] 04-23-2023 11:20-0400 Respiratory rate 12 /min Gann SALAM [facility] 04-23-2023 11:20-0400 SaO2% (BldA) [Mass fraction] 97 % Gann SALAM [facility] 04-23-2023 11:20-0400 Systolic blood pressure 139 mm[Hg] Gann SALAM [facility] 04-23-2023 11:10-0400 Blood Pressure Location Gann SALAM [facility] 04-23-2023 11:10-0400 Diastolic blood pressure 86 mm[Hg] Gann SALAM [facility] 04-23-2023 11:10-0400 Heart rate 67 /min Gann SALAM [facility] 04-23-2023 11:10-0400 Mean blood pressure 105 mm[Hg] Gann SALAM [facility] 04-23-2023 11:10-0400 Respiratory rate 15 /min Gann SALAM [facility] 04-23-2023 11:10-0400 SaO2% (BldA) [Mass fraction] 95 % Gnan SALAM [facility] 04-23-2023 11:10-0400 Systolic blood pressure 144 mm[Hg] Gann SALAM [facility] 04-23-2023 11:05-0400 Blood Pressure Location Gann SALAM [facility] 04-23-2023 11:05-0400 Diastolic blood pressure 72 mm[Hg] Gann SALAM [facility] 04-23-2023 11:05-0400 Heart rate 63 /min Gann SALAM [facility] 04-23-2023 11:05-0400 Mean blood pressure 92 mm[Hg] Gann SALAM [facility] 04-23-2023 11:05-0400 Respiratory rate 12 /min Gann SALAM [facility] 04-23-2023 11:05-0400 SaO2% (BldA) [Mass fraction] 96 % Gann SALAM [facility] 04-23-2023 11:05-0400 Systolic blood pressure 133 mm[Hg] Gann SALAM [facility] 04-23-2023 10:55-0400 Body temperature 97.88 [degF] Gann SALAM [facility] 04-23-2023 10:50-0400 Respiratory rate 20 /min Gann SALAM [facility] 04-23-2023 10:45-0400 Respiratory rate 20 /min Gann SALAM [facility] 04-23-2023 10:40-0400 Respiratory rate 20 /min Gann SALAM [facility] 04-23-2023 10:22-0400 Body temperature 98.06 [degF] Gann SALAM [facility] 01-29-2023 10:08-0400 Diastolic blood pressure 77 mm[Hg] Gann SALAM [facility] 01-29-2023 10:08-0400 Heart rate 68 /min Gann SALAM [facility] 01-29-2023 10:08-0400 Mean blood pressure 97 mm[Hg] Gann SALAM [facility] 01-29-2023 10:08-0400 Respiratory rate 15 /min Gann SALAM [facility] 01-29-2023 10:08-0400 SaO2% (BldA) [Mass fraction] 98 % Gann SALAM [facility] 01-29-2023 10:08-0400 Systolic blood pressure 136 mm[Hg] Gann SALAM [facility] 01-29-2023 10:00-0400 Diastolic blood pressure 67 mm[Hg] Gann SALAM [facility] 01-29-2023 10:00-0400 Heart rate 70 /min Gann SALAM [facility] 01-29-2023 10:00-0400 Mean blood pressure 85 mm[Hg] Gann SALAM [facility] 01-29-2023 10:00-0400 Respiratory rate 17 /min Gann SALAM [facility] 01-29-2023 10:00-0400 SaO2% (BldA) [Mass fraction] 97 % Gann SALAM [facility] 01-29-2023 10:00-0400 Systolic blood pressure 120 mm[Hg] Gann SALAM [facility] 01-29-2023 09:55-0400 Diastolic blood pressure 71 mm[Hg] Gann SALAM [facility] 01-29-2023 09:55-0400 Heart rate 77 /min Gann SALAM [facility] 01-29-2023 09:55-0400 Mean blood pressure 91 mm[Hg] Gann SALAM [facility] 01-29-2023 09:55-0400 Respiratory rate 6 /min Gann SALAM [facility] 01-29-2023 09:55-0400 SaO2% (BldA) [Mass fraction] 96 % Gann SALAM [facility] 01-29-2023 09:55-0400 Systolic blood pressure 130 mm[Hg] Gann SALAM [facility] 01-29-2023 09:49-0400 Blood Pressure Location Gann SALAM [facility] 01-29-2023 09:49-0400 Body temperature 97.52 [degF] Gann SALAM [facility] 01-29-2023 09:11-0400 Blood Pressure Location Gann SALAM [facility] 01-29-2023 09:11-0400 Body temperature 97.34 [degF] Gann SALAM [facility] 11-10-2022 08:08-0500 Blood Pressure Location Karina Kimmy [facility] 11-10-2022 08:08-0500 Body temperature 97.16 [degF] Karinarick PoonKimmy [facility] 11-10-2022 08:08-0500 Diastolic blood pressure 74 mm[Hg] Karina Poonmetz [facility] 11-10-2022 08:08-0500 Heart rate 70 /min Karina Oneal [facility] 11-10-2022 08:08-0500 Systolic blood pressure 108 mm[Hg] Karina Oneal [facility] 06-19-2019 12:00-0400 Body Temperature 97.9 [degF] [facility] [place] 06-19-2019 12:00-0400 BP Diastolic 71 mm[Hg] [facility] , [place] 06-19-2019 12:00-0400 BP Systolic 138 mm[Hg] [facility] [place] 06-19-2019 12:00-0400 Pulse (Heart Rate) 50 /min [facility] [place] 06-19-2019 12:00-0400 Pulse Oximetry 99 % [facility] [place] 06-19-2019 12:00-0400 Respiratory Rate 12 /min [facility] [place] 06-19-2019 08:19-0400 BMI (Body Mass Index) 54.03 kg/m2 [place] [facility], [place] 06-19-2019 08:19-0400 Body weight 156.[address] [facility] [place] 06-19-2019 08:19-[address] [facility] [place] Encounters Encounter Date Encounter Type Care Provider Facility Start: 04-23-2023 End: 04-23-2023 Patient encounter procedure Gann SALAM [facility] Start: 04-23-2023 End: 04-23-2023 ambulatory Gann SALAM [facility] Start: 01-29-2023 End: 01-30-2023 ambulatory Gann SALAM [facility] Start: 01-29-2023 End: 01-29-2023 Patient encounter procedure Gann SALAM [facility] Start: 01-22-2023 End: 04-23-2023 ambulatory Azeem HARPER [facility] Start: 11-10-2022 End: 11-11-2022 ambulatory Karina Oneal Facility:[facility] Start: 11-10-2022 End: 04-22-2023 Recurring Azeem HARPER [facility] Start: 11-10-2022 End: 11-10-2022 Patient encounter procedure Karina Hannah Kimmy [facility] Start: 11-03-2022 End: 11-04-[address] ANNA WARE . Facility: Start: 09-29-2022 ambulatory Karina A Kimmy Duartejorge ty:[place] Start: 07-05-2022 ambulatory Karina Hannah Kimmy Weaver ty:[place] Start: 06-19-2019 End: 06-19-2019 Patient encounter procedure BROOKLYN LÓPEZ [facility] Start: 06-19-2019 End: 06-19-2019 Subsequent hospital visit by physician Brooklyn López Work Phone: [facility] Procedures Date Procedure Procedure Detail Performing Clinician Start: 04-23-2023 Colonoscopy Azeem Joseph Start: 01-29-2023 Colonoscopy Azeem Joseph Comment on above: Poor Prep. Incomplet e Start: 06-19-2019 DISCHARGE PATIENT PHONG PIERRELSEN Start: 06-19-2019 CREATININE W/GFR POI NT OF CARE BROOKLYN PIERRELSEN Start: 06-19-2019 Gluc bld gluc mntr d ev cleared fda spec home use BROOKLYN PIERRELSEN Start: 06-19-2019 Prothrombin time BROOKLYN KALYANI Start: 06-19-2019 Ecg routine ecg w/le ast 12 lds w/i&r BROOKLYN LÓPEZ Start: 06-19-2019 ASSESS BROOKLYN WALLACE SEN Start: 06-19-2019 BEDREST BROOKLYN GONSALEZ SEN Start: 06-19-2019 Continuous pulse oximetry BROOKLYN LÓPEZ Start: 06-19-2019 INITIATE OXYGEN THER APY PROTOCOL BROOKLYN LÓPEZ Start: 06-19-2019 NEURO/VASCULAR CHECKS P DARCY LÓPEZ Start: 06-19-2019 NOTIFY PHYSICIAN (SPECIFY) BROOKLYN LÓPEZ Start: 06-19-2019 NURSING COMMUNICATION Zohra LÓPEZ Start: 06-19-2019 REMOVE IV BROOKLYN SORIA Start: 06-19-2019 VITAL SIGNS BROOKLYN SORIA Start: 06-19-2019 POC CHEM8 INCLUDES C ALC. ANION GAP BROOKLYN LÓPEZ Start: 06-19-2019 CREATININE W/GFR POI NT OF CARE Brooklyn López Work Phone: Start: 06-19-2019 Gluc bld gluc mntr d ev cleared fda spec home use Brooklyn López Work Phone: Start: 06-19-2019 Prothrombin time Brooklyn López Work Phone: Colonoscopy Karina Oneal History of amputatio n of hallux History of amputation of hallux Karina Oneal Plan of Treatment Date Care Activity Detail Author Start: 06-08-2019 Influenza vaccination Flu vaccine (# 1) [place], [place] Start: 2016 Pneumococcal 65+ yea rs Vaccine (1 of 2 - PCV13) Pneumococcal 65+ years Vaccine (1 of 2 - PCV13) [place], [place] Start: 1950 Creatinine monitoring Creatinine mon itoring [place], [place] Start: 1950 Potassium monitoring Potassium monit [place]ing [place] EKG 12 Lead EKG 12 Lead ECG Routine 06/19/2019 8:32 AM EDT [place] Initiate Oxygen Ther apy Protocol Initiate Oxygen Therapy Protocol Respiratory Care Routine Daily until discontinued starting 06/19/2019 [place] Comment on above: Daily until disconti nued starting 06/19/2019 Phase I & II - meter ed glucose Phase I & II - metered glucose Point of Care Testing Routine As Needed until discontinued starting 06/19/2019 [place] Comment on above: As Needed until disc ontinued starting 06/19/2019 End: 06-19-2019 POC CHEM8 INCLUDES CALC. ANION GAP POC CHEM8 INCLUDES CALC. ANION GAP Point of Care Testing Routine One Time for 1 Occurrences starting 06/19/2019 until 06/19/2019 [facility] Comment on above: One Time for 1 Occur rences starting 06/19/2019 until 06/19/2019 Immunizations Immunization Date Immunization Notes Care Provider Fa [facility] 08-24-2022 influenza virus vaccine, unspecified formulation Karina Oneal [facility] 07-18-2021 pneumococcal conjuga te vaccine, 13 valent Karina Oneal [facility] Payers Date Payer Category Payer Unknown [id number] 2019 Unknown [id number] 2019 Unknown [employer] xxxxxxxxxx 2019-Present [phone] [address] [place] [address] xxxxxxxxxx [id number] 2014 Medicare [id number] 2014 Medicare MEDICARE RAVTROA D MEDICARE xxxxxxxxxxx 2014-Present [phone] [address] [address] [place] [address] xxxxxxxxxxx [id number] 1951 Unknown [id number] 1951 Unknown [id number] 1951 Unknown [id number] 1950 Unknown [id number] 1951 Unknown [id number] 1950 Unknown [id number] 1950 Unknown [id number] 1950 Unknown [id number] Social History Date Type Detail Facility Start: 06-19-2019 Tobacco smoking stat us [facility] [place] Start: 06-19-2019 Alcohol intake Yes [facility] Sex Assigned At Not on file [place] Start: 11-10-2022 Tobacco smoking status Never s moked tobacco (finding) [facility] Tobacco smoking status Never [facility] Medical Equipment Procedure Code Equipment Code Equipment Origin al Text Equipment Identifier Dates Unknown Unknown 04/23/23 Non Biological Unknown FDA Start: 04-23-2023 Functional Status Date Assessment Result Facility 04-23-2023 Functional Status N/A [facility] 01-29-2023 Functional Status N/A [facility] 11-10-2022 Functional Status N/A [facility] Clinical Notes 11-10-2022 to 04-25-2023 Note Date & Type Note Facility 04-25-2023 Note [id number] #[id number]:127 [facility] 04-23-2023 Evaluation + Plan note Extrac valeria from: Title:CSB post op Author:Luis Antonio Garcia MD Date:04/23/23 Plan Transfer/Discharge: Transfer/Discharge Discharge when meets criteria ( To home ). Extracted from: Title:CSB Preop Author:Luis Antonio Garcia MD Date:04/23/23 Plan [place] [employer] (ASA) physical status classification: Class III. Anesthetic Preoperative Plan: Anesthesia General. [facility]07-17-2023 Hospital Discharge instructions Patient Education 04/23/2023 11:03:13 Lipoma Lipoma A lipoma is a noncancerous (benign) tumor that is made up of fat cells. This is a very common type of soft-tissue growth. Lipomas are usually found under the skin (subcutaneous). They may occur in any tissue of the body that contains fat. Common areas for lipomas to appear include the back, arms, shoulders, buttocks, and thighs. Lipomas grow slowly, and they are usually painless. Most lipomas do not cause problems and do not require treatment. What are the causes? The cause of this condition is not known. What increases the risk? You are more likely to develop this condition if: You are 40 60 years old. You have a family history of lipomas. What are the signs or symptoms? A lipoma usually appears as a small, round bump under the skin. In most cases, the lump will: Feel soft or rubbery. Not cause pain or other symptoms. However, if a lipoma is located in an area where it pushes on nerves, it can become painful or cause other symptoms. How is this diagnosed? A lipoma can usually be diagnosed with a physical exam. You may also have tests to confirm the diagnosis and to rule out other conditions. Tests may include: Imaging tests, such as a CT scan or an MRI. Removal of a tissue sample to be looked at under a microscope (biopsy). How is this treated? Treatment for this condition depends on the size of the lipoma and whether it is causing any symptoms. For small lipomas that are not causing problems, no treatment is needed. If a lipoma is bigger or it causes problems, surgery may be done to remove the lipoma. Lipomas can also be removed to improve appearance. Most often, the procedure is done after applying a medicine that numbs the area (local anesthetic). Liposuction may be done to reduce the size of the lipoma before it is removed through surgery, or it may be done to remove the lipoma. Lipomas are removed with this method to limit incision size and scarring. A liposuction tube is inserted through a small incision into the lipoma, and the contents of the lipoma are removed through the tube with suction. Follow these instructions at home: Watch your lipoma for any changes. Keep all follow-up visits. This is important. Where to find more information OrthoInfo: orthoinfo.aaos.org Contact a health care provider if: Your lipoma becomes larger or hard. Your lipoma becomes painful, red, or increasingly swollen. These could be signs of infection or a more serious condition. Get help right away if: You develop tingling or numbness in an area near the lipoma. This could indicate that the lipoma iscausing nerve damage. Summary A lipoma is a noncancerous tumor that is made up of fat cells. Most lipomas do not cause problems and do not require treatment. If a lipoma is bigger or it causes problems, surgery may be done to remove the lipoma. Contact a health care provider if your lipoma becomes larger or hard, or if it becomes painful, red, or increasingly swollen. These could be signs of infection or a more serious condition. This information is not intended to replace advice given to you by your health care provider. Make sure you discuss any questions you have with your health care provider. Document Revised: 10/13/2022 Document Reviewed: 10/13/2022 [employer] Here Patient Education 2022 [employer]. 04/23/2023 11:02:58 Colon Polyps Colon Polyps Colon polyps are tissue growths inside the colon, which is part of the large intestine. They are one of the types of polyps that can grow in the body. A polyp may be a round bump or a mushroom-shapedgrowth. You could have one polyp or more than one. Most colon polyps are noncancerous (benign). However, some colon polyps can become cancerous over time. Finding and removing the polyps early can help prevent this. What are the causes? The exact cause of colon polyps is not known. What increases the risk? The following factors may make you more likely to develop this condition: Having a family history of colorectal cancer or colon polyps. Being older than 45 years of age. Being younger than 45 years of age and having a significant family history of colorectal cancer or colon polyps or a genetic condition that puts you at higher risk of getting colon polyps. Having inflammatory bowel disease, such as ulcerative colitis or Crohn's disease. Having certain conditions passed from parent to child (hereditary conditions), such as: ?Familial adenomatous polyposis (FAP). ?Shaw syndrome. ?Turcot syndrome. ?Peutz Jeghers syndrome. ?MUTYH-associated polyposis (MAP). Being overweight. Certain lifestyle factors. These include smoking cigarettes, drinking too much alcohol, not gettingenough exercise, and eating a diet that is high in fat and red meat and low in fiber. Having had childhood cancer that was treated with radiation of the abdomen. What are the signs or symptoms? Many times, there are no symptoms. If you have symptoms, they may include: Blood coming from the rectum during a bowel movement. Blood in the stool (feces). The blood may be bright red or very dark in color. Pain in the abdomen. A change in bowel habits, such as constipation or diarrhea. How is this diagnosed? This condition is diagnosed with a colonoscopy. This is a procedure in which a lighted, flexible scope is inserted into the opening between the buttocks (anus) and then passed into the colon to examine the area. Polyps are sometimes found when a colonoscopy is done as part of routine cancer screening tests. How is this treated? This condition is treated by removing any polyps that are found. Most polyps can be removed during a colonoscopy. Those polyps will then be tested for cancer. Additional treatment may be needed depending on the results of testing. Follow these instructions at home: Eating and drinking Eat foods that are high in fiber, such as fruits, vegetables, and whole grains. Eat foods that are high in calcium and vitamin D, such as milk, cheese, yogurt, eggs, liver, fish, and broccoli. Limit foods that are high in fat, such as fried foods and desserts. Limit the amount of red meat, precooked or cured meat, or other processed meat that you eat, such as hot dogs, sausages, saab, or meat loaves. Limit sugary drinks. Lifestyle Maintain a healthy weight, or lose weight if recommended by your health care provider. Exercise every day or as told by your health care provider. Do not use any products that contain nicotine or tobacco, such as cigarettes, e- cigarettes, and chewing tobacco. If you need help quitting, ask your health care provider. Do not drink alcohol if: ?Your health care provider tells you not to drink. ?You are , may be , or are planning to become . If you drink alcohol: ?Limit how much you use to: ?0 1 drink a day for women. ?0 2 drinks a day for men. ?Know how much alcohol is in your drink. In the [place] one drink equals one 12 oz bottle of beer (355 mL), one 5 oz glass of wine (148 mL), or one 1 oz glass of hard liquor (44 mL). General instructions Take qvyb-iru-dalicpn and prescription medicines only as told by your health care provider. Keep all follow-up visits. This is important. This includes having regularly scheduled colonoscopies. Talk to your health care provider about when you need a colonoscopy. Contact a health care provider if: You have new or worsening bleeding during a bowel movement. You have new or increased blood in your stool. You have a change in bowel habits. You lose weight for no known reason. Summary Colon polyps are tissue growths inside the colon, which is part of the large intestine. They are one type of polyp that can grow in the body. Most colon polyps are noncancerous (benign), but some can become cancerous over time. This condition is diagnosed with a colonoscopy. This condition is treated by removing any polyps that are found. Most polyps can be removed during a colonoscopy. This information is not intended to replace advice given to you by your health care provider. Make sure you discuss any questions you have with your health care provider. Document Revised: 01/12/2021 Document Reviewed: 01/12/2021 Be Here Patient Education 2022 [employer]. 04/23/2023 11:02:56 Colonoscopy, Care After Surgery [place] (CUSTOM) Colonoscopy Care After Surgery Please read the instructions outlined below and refer to this sheet in the next few weeks. These discharge instructions provide you with general information on caring [facility] Your doctor may also give you specific instructions. While your treatment has been planned according to the most current medical practices available, unavoidable complications occasionally occur. If you have any problems or questions after discharge, please call your doctor. ACTIVITY You may resume your regular activity, but move at a slower pace for the next 24 hours. Take frequent rest periods for the next 24 hours. Walking will help get rid of the air and reduce the bloated feeling in your abdomen (belly). No driving for 24 hours (because of the anesthesia (medicine) used during the test). You may shower. Do not sign any important legal documents or operate any machinery for 24 hours (because of the anesthesia used during the test). NUTRITION Drink plenty of fluids. You may resume your normal diet as instructed by your doctor. Begin with a light meal and progress to your normal diet. Heavy or fried foods are harder to digestand may make you feel nauseated (sick to your stomach). Avoid alcoholic beverages for 24 hours or as instructed. MEDICATIONS You may resume your normal medications unless your doctor tells you otherwise. WHAT YOU CAN EXPECT TODAY Some feelings of bloating in the abdomen. Passage of more gas than usual. Spotting of blood in your stool or on the toilet paper. FOLLOW-UP Your doctor will discuss the results of your test with you. SEEK IMMEDIATE MEDICAL ATTENTION IF: There is more than a spotting of blood in your stool. There is abdominal distention (your abdomen is swollen). There is vomiting. You have a temperature over 101.5 F. There is abdominal pain or discomfort that is severe or gets worse throughout the day. Follow Up Care 02/12/2023 09:33:16 With:Azeem HARPER Address: [address] [place] [address]. [address] [place] [address] [facility] (1Saygent When:1 to 2 weeks Comments:Call for any problems. [facility]04-26-2023 Note [id number]:127[facility] 01-29-2023 Evaluation + Plan noteExtracted from: Title:CSB post op Author:Luis Antonio Garcia MD Date:01/29/23 Plan Transfer/Discharge: Transfer/Discharge Discharge when meets criteria ( To home ). Extracted from: Title:PHILLYB GA Author:Luis Antonio Garcia MD Date:01/29/23 Plan [employer] [employer] (ASA) physical status classification: Class III. Anesthetic Preoperative Plan: Anesthesia General. [facility]04-24-2023 Hospital Discharge instructions Patient Education 01/29/2023 10:01:56 Colonoscopy, Care After Surgery [place] (CUSTOM) Colonoscopy Care After Surgery Please read the instructions outlined below and refer to this sheet in the next few weeks. These discharge instructions provide you with general information on caring [facility] Your doctor may also give you specific instructions. While your treatment has been planned according to the most current medical practices available, unavoidable complications occasionally occur. If you have any problems or questions after discharge, please call your doctor. ACTIVITY You may resume your regular activity, but move at a slower pace for the next 24 hours. Take frequent rest periods for the next 24 hours. Walking will help get rid of the air and reduce the bloated feeling in your abdomen (belly). No driving for 24 hours (because of the anesthesia (medicine) used during the test). You may shower. Do not sign any important legal documents or operate any machinery for 24 hours (because of the anesthesia used during the test). NUTRITION Drink plenty of fluids. You may resume your normal diet as instructed by your doctor. Begin with a light meal and progress to your normal diet. Heavy or fried foods are harder to digestand may make you feel nauseated (sick to your stomach). Avoid alcoholic beverages for 24 hours or as instructed. MEDICATIONS You may resume your normal medications unless your doctor tells you otherwise. WHAT YOU CAN EXPECT TODAY Some feelings of bloating in the abdomen. Passage of more gas than usual. Spotting of blood in your stool or on the toilet paper. FOLLOW-UP Your doctor will discuss the results of your test with you. SEEK IMMEDIATE MEDICAL ATTENTION IF: There is more than a spotting of blood in your stool. There is abdominal distention (your abdomen is swollen). There is vomiting. You have a temperature over 101.5 F. There is abdominal pain or discomfort that is severe or gets worse throughout the day. 01/29/2023 10:01:55 Colonoscopy, Care After Surgery [place] (CUSTOM) Colonoscopy Care After Surgery Please read the instructions outlined below and refer to this sheet in the next few weeks. These discharge instructions provide you with general information on caring for [facility] Your doctor may also give you specific instructions. While your treatment has been planned according to the most current medical practices available, unavoidable complications occasionally occur. If you have any problems or questions after discharge, please call your doctor. ACTIVITY You may resume your regular activity, but move at a slower pace for the next 24 hours. Take frequent rest periods for the next 24 hours. Walking will help get rid of the air and reduce the bloated feeling in your abdomen (belly). No driving for 24 hours (because of the anesthesia (medicine) used during the test). You may shower. Do not sign any important legal documents or operate any machinery for 24 hours (because of the anesthesia used during the test). NUTRITION Drink plenty of fluids. You may resume your normal diet as instructed by your doctor. Begin with a light meal and progress to your normal diet. Heavy or fried foods are harder to digestand may make you feel nauseated (sick to your stomach). Avoid alcoholic beverages for 24 hours or as instructed. MEDICATIONS You may resume your normal medications unless your doctor tells you otherwise. WHAT YOU CAN EXPECT TODAY Some feelings of bloating in the abdomen. Passage of more gas than usual. Spotting of blood in your stool or on the toilet paper. FOLLOW-UP Your doctor will discuss the results of your test with you. SEEK IMMEDIATE MEDICAL ATTENTION IF: There is more than a spotting of blood in your stool. There is abdominal distention (your abdomen is swollen). There is vomiting. You have a temperature over 101.5 F. There is abdominal pain or discomfort that is severe or gets worse throughout the day. Follow Up Care 11/10/2022 08:50:59 With:Azeem HARPER Address: [facility] [employer]. [address] [place] [address] Business (1) When: Unknown Comments:Call Office to arrange 2 day Prep and repeat colonoscopy less than 3 months [facility]02-03-2023 Hospital Discharge instructions Patient Education 11/10/2022 08:02:56 Colonoscopy, Adult Colonoscopy, Adult A colonoscopy is an exam to look at the entire large intestine. During the exam, a lubricated, flexible tube that has a camera on the end of it is inserted into the anus and then passed into the rectum, colon, and other parts of the large intestine. You may have a colonoscopy as a part of normal colorectal screening or if you have certain symptoms, such as: Lack of red blood cells (anemia). Diarrhea that does not go away. Abdominal pain. Blood in your stool (feces). A colonoscopy can help screen for and diagnose medical problems, including: Tumors. Polyps. Inflammation. Areas of bleeding. Tell a health care provider about: Any allergies you have. All medicines you are taking, including vitamins, herbs, eye drops, creams, and iwjy-ene-jfwgvye medicines. Any problems you or family members have had with anesthetic medicines. Any blood disorders you have. Any surgeries you have had. Any medical conditions you have. Any problems you have had passing stool. What are the risks? Generally, this is a safe procedure. However, problems may occur, including: Bleeding. A tear in the intestine. A reaction to medicines given during the exam. Infection (rare). What happens before the procedure? Eating and drinking restrictions Follow instructions from your health care provider about eating and drinking, which may include: A few days before the procedure follow a low-fiber diet. Avoid nuts, seeds, dried fruit, raw fruits, and vegetables. 1 3 days before the procedure follow a clear liquid diet. Drink only clear liquids, such as clear broth or bouillon, black coffee or tea, clear juice, clear soft drinks or sports drinks, gelatin dessert, and popsicles. Avoid any liquids that contain red or purple dye. On the day of the procedure do not eat or drink anything starting 2 hours before the procedure, or within the time period that your health care provider recommends. Up to 2 hours before the procedure, you may continue to drink clear liquids, such as water or clear fruit juice. Bowel prep If you were prescribed an oral bowel prep to clean out your colon: Take it as told by your health care provider. Starting the day before your procedure, you will needto drink a large amount of medicated liquid. The liquid will cause you to have multiple loose stools until your stool is almost clear or light green. If your skin or anus gets irritated from diarrhea, you may use these to relieve the irritation: ?Medicated wipes, such as adult wet wipes with aloe and vitamin E. ?A skin-soothing product like petroleum jelly. If you vomit while drinking the bowel prep, take a break for up to 60 minutes and then begin the bowel prep again. If vomiting continues and you cannot take the bowel prep without vomiting, call yourhealth care provider. To clean out your colon, you may also be given: ?Laxative medicines. ?Instructions about how to use an enema. General instructions Ask your health care provider about: ?Changing or stopping your regular medicines or supplements. This is especially important if you are taking iron supplements, diabetes medicines, or blood thinners. ?Taking medicines such as aspirin and ibuprofen. These medicines can thin your blood. Do not take these medicines before the procedure if your health care provider tells you not to. Plan to have someone take you home from the hospital or clinic. What happens during the procedure? An IV may be inserted into one of your veins. You will be given medicine to help you relax (sedative). To reduce your risk of infection: ?Your health care team will wash or sanitize their hands. ?Your anal area will be washed with soap. You will be asked to lie on your side with your knees bent. Your health care provider will lubricate a long, thin, flexible tube. The tube will have a camera and a light on the end. The tube will be inserted into your anus. The tube will be gently eased through your rectum and colon. Air will be delivered into your colon to keep it open. You may feel some pressure or cramping. The camera will be used to take images during the procedure. A small tissue sample may be removed to be examined under a microscope (biopsy). If small polyps are found, your health care provider may remove them and have them checked for cancer cells. When the exam is done, the tube will be removed. The procedure may vary among health care providers and hospitals. What happens after the procedure? Your blood pressure, heart rate, breathing rate, and blood oxygen level will be monitored until themedicines you were given have worn off. Do not drive for 24 hours after the exam. You may have a small amount of blood in your stool. You may pass gas and have mild abdominal cramping or bloating due to the air that was used to inflate your colon during the exam. It is up to you to get the results of your procedure. Ask your health care provider, or the department performing the procedure, when your results will be ready. Summary A colonoscopy is an exam to look at the entire large intestine. During a colonoscopy, a lubricated, flexible tube with a camera on the end of it is inserted into the anus and then passed into the colon and other parts of the large intestine. Follow instructions from your health care provider about eating and drinking before the procedure. If you were prescribed an oral bowel prep to clean out your colon, take it as told by your health care provider. After your procedure, your blood pressure, heart rate, breathing rate, and blood oxygen level will be monitored until the medicines you were given have worn off. This information is not intended to replace advice given to you by your health care provider. Make sure you discuss any questions you have with your health care provider. Document Released: 09/21/2001 Document Revised: 07/17/2018 Document Reviewed: 12/05/2016 Be Here Patient Education 2020 [employer]. Follow Up Care 10/04/2022 11:53:39 With:Karina Oneal CNP Address: When:1 to 2 weeks Comments:Following colonoscopy. [facility] Evaluation + Plan note Future Appointments Appointment Date:01/22/2023 08:30:00 AM Scheduled Provider: Location:[facility] Appointment Type:Surgery PAT COVID Testing Appointment Date:01/29/2023 09:30:00 AM Scheduled Provider: Location:[facility] Appointment Type:Surgery FT [facility] Evaluation + Plan note Future Appointments Appointment Date:04/23/2023 10:55:00 AM Scheduled Provider: Location:[facility] N[facility] No data available for this section [facility] Hospital Discharge instructions No data available for this section [facility] No data available for this section [facility] Summary Purpose Family History No Family History Records FoundNo Family History Records FoundNo Family History Records FoundNo Family History Records FoundNo Family History Records Found Advance Directives No Advanced Directives Records FoundDocuments on File Type Date Recorded 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 You may have a normal diet but should eat lightly day of surgery. Drink plenty of fluids. Urinate within 8 hours after surgery, if unable to urinate call your doctor documented in this encounter History of Present Illness * Joceline Chaney RN - 06/19/2019 12:[address] Ibarra phoned for sign out. documented in this encounter Additional Source Comments (unrecognized sect ion and content) No Status Records FoundNo Status Records FoundNo Status Records FoundNo Status Records FoundNo Status Records Found INFORMATION SOURCE (unrecogn ized section and content) DATE CREATED AUTHOR 04/01/2018 [facility] DATE CREATED AUTHOR AUTHOR'S ORGANIZ ATION 07/07/2019 [facility] DATE CREATED AUTHOR AUTHOR'S ORGANIZ ATION 10/30/2021 [facility] DATE CREATED AUTHOR AUTHOR'S ORGANIZ ATION 12/20/2022 [facility] DATE CREATED AUTHOR AUTHOR'S ORGANIZ ATION 04/28/[address] [facility] Reason for Visit (unrecogniz ed section and content) Status Reason Specialty Diagnoses / Procedures Referre d By Contact Referred To Contact Diagnoses RETINAL DETACHMENT Procedures ID OFFICE/OUTPT VISIT,PROCEDURE ONLY VITRECTOMY 25 GAUGE, GAS FLUID EXCHANGE, LASER Brooklyn López MD [address], [address] [place] [address] [facility] Patient Care team informatio n (unrecognized section and content) Personnel Name: Jaki Cardoso Personnel Name: Jaki Cardoso Personnel Name: Jaki Cardoso Personnel Name: Jaki Cardoso FOR RECORDS PERTAINING TO PATIENTS WHO ARE OR HAVE BEEN ENROLLED IN A CHEMICAL DEPENDENCY/SUBSTANCEABUSE PROGRAM, SOME INFORMATION MAY BE OMITTED. This clinical summary was aggregated from multiple sources. Caution should be exercised in using it in the provision of clinical care. This summary normalizes information from multiple sources, and as a consequence, information in this document may materially change the coding, format and clinical context of patient data. In addition, data may be omitted in some cases. CLINICAL DECISIONS SHOULD BE BASED ON THE PRIMARY CLINICAL RECORDS. [facility] [employer] [facility]. provides no warranty or guarantee of the accuracy or completeness of information in this document.
[2024-09-05 20:55] VITALS: BP 146/69; PULSE 84; TEMP 36.8; O2SAT 95; BMI 51.7
--- NOTE | 2024-09-05 21:04 | ED_ITS ---
Documented by User: [email or web address] Thompson 09/05/24 21:54 HPI HPI - General Adult General Chief complaint: Skin/Abscess/Foreign Body Stated complaint: MOLE BLEEDING-UNABLE TO STOP IT Time Seen by Provider: 09/05/24 20:47 Source: patient Mode of arrival: walk-in Limitations: no limitations History of Present Illness HPI narrative: Patient is a 73-year-old male who presents to the emergency department for bleeding from his neck. He states he scratched an area posterior to his left ear earlier today and has had bleeding continuously throughout the day. He does take Coumadin which is managed by the [facility]. He states 2 days ago his INR was 2.8. He states he was told his INR should be between 2.5 and 3. He has no pain. No medications taken prior to arrival. He states his attempted to dress the area earlier but he has continued to bleed. Related Data Home Medications ?Medication ?Instructions ?Recorded ?Confirmed cilostazol 100 mg tablet 100 mg PO DAILY 08/19/24 08/19/24 dorzolamide 2 % eye drops 2 drp ophthalmic (eye) DAILY 08/19/24 08/19/24 hydrochlorothiazide 25 mg tablet 12.5 mg PO DAILY 08/19/24 08/19/24 latanoprost 0.005 % eye drops 1 drp ophthalmic (eye) QPM 08/19/24 08/19/24 lisinopril 30 mg tablet 30 mg PO DAILY 08/19/24 08/19/24 pravastatin 80 mg tablet 80 mg PO DAILY 08/19/24 08/19/24 trazodone 100 mg tablet 200 mg PO DAILY 08/19/24 08/19/24 venlafaxine 150 mg 150 mg PO BID 08/19/24 08/19/24 capsule,extended release 24 hr (Effexor XR) warfarin 5 mg tablet 5 mg PO DAILY 08/19/24 08/19/24 Previous Rx's ?Medication ?Instructions ?Recorded ciprofloxacin HCl 500 mg tablet 500 mg PO BID 10 days #20 tabs 08/19/24 (Cipro) metronidazole 500 mg tablet 500 mg PO Q12H 10 days #20 tabs 08/19/24 Allergies Allergy/AdvReac Type Severity Reaction Status Date / Time metronidazole (From Flagyl) AdvReac Severe Rash Verified 09/05/24 20:55 Opioid HPI Opioid Management Most Recent Opioid Data: Last Pain Scale 9 08/19/24 07:19 08/19/24 Review of Systems ROS Constitutional Denies: fever or chills Ears, nose, mouth, and throat Denies: throat pain or nasal congestion Cardiovascular Denies: chest pain Respiratory Denies: shortness of breath Gastrointestinal Denies: nausea or vomiting Integumentary/Breast Denies: rash Neurological Denies: numbness in extremities or weakness in extremities Hematologic/Lymphatic Denies: easy bruising or easy bleeding PFSH PFSH Social History Little interest or pleasure in doing things: not at all Feeling down, depressed, or hopeless: not at all Exam Narrative Exam Narrative: Gen.: Awake, alert, in no distress Head: Normocephalic, atraumatic ENT: Moist mucous membranes, 3 mm area posterior to the left ear on the neck consistent with a mole versus skin tag. Continuous venous oozing noted from the site. No arterial bleeding or pulsatile mass of the neck. Respiratory: No respiratory distress Cardio: Regular rate and rhythm Extremities: Moves extremities equally Psych: Normal mood and affect Neuro: No focal neuro deficit Skin: Warm, dry, intact Constitutional Vital Signs, click to edit/add: Last Vital Signs Temp 98.2 F 09/05/24 20:55 Pulse 84 09/05/24 20:55 Resp 18 09/05/24 20:55 BP 146/69 H 09/05/24 20:55 Pulse Ox 95 09/05/24 20:55 O2 Del Method Room Air 09/05/24 20:55 Course Vital Signs Vital signs: Vital Signs Temperature 98.2 F 09/05/24 20:55 Pulse Rate 84 09/05/24 20:55 Respiratory Rate 18 09/05/24 20:55 Blood Pressure 146/69 H 09/05/24 20:55 Pulse Oximetry 95 09/05/24 20:55 Oxygen Delivery Method Room Air 09/05/24 20:55 Temperature 98.2 F 09/05/24 20:55 Pulse Rate 84 09/05/24 20:55 Respiratory Rate 18 09/05/24 20:55 Blood Pressure 146/69 H 09/05/24 20:55 Pulse Oximetry 95 09/05/24 20:55 Oxygen Delivery Method Room Air 09/05/24 20:55 Medical Decision Making MDM Narrative Medical decision making narrative: INR was drawn for the patient, 1 cc of 1% lidocaine with epi was injected to the area. The area was carefully aspirated to avoid blood vessel involvement in the neck. The small area to the neck was removed with forceps, consistent with a small mole versus skin tag. 4-0 Ethilon sutures were placed, 2 sutures placed to squeeze the area for hemostasis. There is no residual bleeding and the area was dressed with bacitracin and a Band-Aid. [facility] he can have the [facility]ures removed at that time. 2149: INR is pending and case is turned over to attending physician for disposition. Medical Records Medical records reviewed: Yes I reviewed the patient's medical records Lab Data Lab results reviewed: Yes I reviewed the patient's lab results Discharge Plan Discharge Chief Complaint: Skin/Abscess/Foreign Body Clinical Impression: Bleeding from wound, Elevated INR Patient Disposition: Home, Self-Care Time of Disposition Decision: 22:48 Prescriptions / Home Meds: No Action venlafaxine [Effexor XR] 150 mg capsule,extended release 24hr 150 mg PO BID pravastatin 80 mg tablet 80 mg PO DAILY cilostazol 100 mg tablet 100 mg PO DAILY lisinopril 30 mg tablet 30 mg PO DAILY hydrochlorothiazide 25 mg tablet 12.5 mg PO DAILY trazodone 100 mg tablet 200 mg PO DAILY dorzolamide 2 % drops 2 drp ophthalmic (eye) DAILY latanoprost 0.005 % drops 1 drp ophthalmic (eye) QPM warfarin 5 mg tablet 5 mg PO DAILY ciprofloxacin HCl [Cipro] 500 mg tablet 500 mg PO BID 10 Days Qty: 20 0RF metronidazole 500 mg tablet 500 mg PO Q12H 10 Days Qty: 20 0RF Print Language: Jordanian Instructions: Care For Your Stitches (ED), Elevated INR (ED) Referrals: Jasper Ware MD [Primary Care Provider] - 09/08/24 Documented by User: Augustus Duron 09/05/24 22:49 HPI HPI - General Adult General Chief complaint: Skin/Abscess/Foreign Body Stated complaint: MOLE BLEEDING-UNABLE TO STOP IT Time Seen by Provider: 09/05/24 20:47 Related Data Home Medications ?Medication ?Instructions ?Recorded ?Confirmed cilostazol 100 mg tablet 100 mg PO DAILY 08/19/24 08/19/24 dorzolamide 2 % eye drops 2 drp ophthalmic (eye) DAILY 08/19/24 08/19/24 hydrochlorothiazide 25 mg tablet 12.5 mg PO DAILY 08/19/24 08/19/24 latanoprost 0.005 % eye drops 1 drp ophthalmic (eye) QPM 08/19/24 08/19/24 lisinopril 30 mg tablet 30 mg PO DAILY 08/19/24 08/19/24 pravastatin 80 mg tablet 80 mg PO DAILY 08/19/24 08/19/24 trazodone 100 mg tablet 200 mg PO DAILY 08/19/24 08/19/24 venlafaxine 150 mg 150 mg PO BID 08/19/24 08/19/24 capsule,extended release 24 hr (Effexor XR) warfarin 5 mg tablet 5 mg PO DAILY 08/19/24 08/19/24 Previous Rx's ?Medication ?Instructions ?Recorded ciprofloxacin HCl 500 mg tablet 500 mg PO BID 10 days #20 tabs 08/19/24 (Cipro) metronidazole 500 mg tablet 500 mg PO Q12H 10 days #20 tabs 08/19/24 Allergies Allergy/AdvReac Type Severity Reaction Status Date / Time metronidazole (From Flagyl) AdvReac Severe Rash Verified 09/05/24 20:55 Opioid HPI Opioid Management Most Recent Opioid Data: Last Pain Scale 9 08/19/24 07:19 08/19/24 PFSH PFSH Social History Little interest or pleasure in doing things: not at all Feeling down, depressed, or hopeless: not at all Exam Constitutional Vital Signs, click to edit/add: Last Vital Signs Temp 98.2 F 09/05/24 20:55 Pulse 84 09/05/24 20:55 Resp 18 09/05/24 20:55 BP 146/69 H 09/05/24 20:55 Pulse Ox 95 09/05/24 20:55 O2 Del Method Room Air 09/05/24 20:55 Course Vital Signs Vital signs: Vital Signs Temperature 98.2 F 09/05/24 20:55 Pulse Rate 84 09/05/24 20:55 Respiratory Rate 18 09/05/24 20:55 Blood Pressure 146/69 H 09/05/24 20:55 Pulse Oximetry 95 09/05/24 20:55 Oxygen Delivery Method Room Air 09/05/24 20:55 Temperature 98.2 F 09/05/24 20:55 Pulse Rate 84 09/05/24 20:55 Respiratory Rate 18 09/05/24 20:55 Blood Pressure 146/69 H 09/05/24 20:55 Pulse Oximetry 95 09/05/24 20:55 Oxygen Delivery Method Room Air 09/05/24 20:55 Medical Decision Making MDM Narrative Medical decision making narrative: INR was drawn for the patient, 1 cc of 1% lidocaine with epi was injected to the area. The area was carefully aspirated to avoid blood vessel involvement in the neck. The small area to the neck was removed with forceps, consistent with a small mole versus skin tag. 4-0 Ethilon sutures were placed, 2 sutures placed to squeeze the area for hemostasis. There is no residual bleeding and the area was dressed with bacitracin and a Band-Aid. [facility], he can have the sutures removed at that time. 2150: INR is pending and case is turned over to attending physician for disposition. Attending physician note: Lab required a re-draw of blood after first sample was not usable. INR found to be 6.04. Pt instructed to stop coumadin over the weekend and contact his PCP on Sunday to get INR rechecked and discuss dose restart. Pt acknowledged understanding of this. Lab Data Lab results reviewed: Yes I reviewed the patient's lab results Lab results narrative: INR = 6.04 = elevated Discharge Plan Discharge Chief Complaint: Skin/Abscess/Foreign Body Clinical Impression: Bleeding from wound, Elevated INR Patient Disposition: Home, Self-Care Time of Disposition Decision: 22:48 Prescriptions / Home Meds: No Action venlafaxine [Effexor XR] 150 mg capsule,extended release 24hr 150 mg PO BID pravastatin 80 mg tablet 80 mg PO DAILY cilostazol 100 mg tablet 100 mg PO DAILY lisinopril 30 mg tablet 30 mg PO DAILY hydrochlorothiazide 25 mg tablet 12.5 mg PO DAILY trazodone 100 mg tablet 200 mg PO DAILY dorzolamide 2 % drops 2 drp ophthalmic (eye) DAILY latanoprost 0.005 % drops 1 drp ophthalmic (eye) QPM warfarin 5 mg tablet 5 mg PO DAILY ciprofloxacin HCl [Cipro] 500 mg tablet 500 mg PO BID 10 Days Qty: 20 0RF metronidazole 500 mg tablet 500 mg PO Q12H 10 Days Qty: 20 0RF Print Language: Jordanian Instructions: Care For Your Stitches (ED), Elevated INR (ED) Referrals: Jasper Ware MD [Primary Care Provider] - 09/08/24
[2024-09-05] MEDS: BACITRACIN 0.9 GM PACKET 1 PACKET TOPICAL (21:24)
[2024-09-05] MEDS: LIDOCAINE HCL 1%-EPINEPHRINE 1:100,000 20 ML MDV INJ (21:24)
[2024-09-05 22:43] LABS: INR 6.04; Prothrombin Time 53.6 sec (9.0-11.6)
--- NOTE | 2024-09-17 13:26 | CM.NOTE ---
Fax received from [facility] requesting clinical information for billing. Pt discharged from ER
== END 2024-09-05 23:05 | disposition home or self-care (01) ==
PROVIDERS: Physician Assistant; Emergency Provider Emergency Medicine; PCP Family Medicine
DX: R58 Hemorrhage, not elsewhere classified (principal); R79.1 Abnormal coagulation profile; Z79.01 Long term (current) use of anticoagulants
CPT/HCPCS: 36415; 85610; 99284

== ENCOUNTER 2024-10-30 19:09 | Emergency (ER) | payer OTHER, SELFPAY ==
--- OUTSIDE RECORDS SUMMARY | 2024-10-30 19:15 | XMS_ITS | CCD ---
Author Organization [facility] Care Team Providers Care Role Player Name Role Phone BROOKLYN LÓPEZ Admitting Unavailable BROOKLYN LÓPEZ Attending Unavailable ANNA WARE Primary Care Unavailable Anna Ware Primary Care Provider Jaki Cardoso Primary Care Physician Unavailab le [...] Attending Unavailable SALAM, Azeem Admitting Unavailable SALAM, Aezem Referring Unavailable SALAM, Azeem Attending Unavailable SALAM, Gann Admitting Unavailable SALAM, Gann Referring Unavailable Karina Oneal Attending Unavailable Karina Oneal Attending Unavailable Allergies Allergy Classification Reported Allergen(s) Allergy Type Date of Onset Reaction(s) Facility (2 sources) Adhesive Tape; Translations: [Adhesive tape] Propensity to adverse reactions to drug 9 Rash [place], [place] (5 sources) metroNIDAZOLE; Translations: [metronidazole] Drug Allergy 9 Rash, Unknown (qualifier value) [place], [place] (5 sources) Adhesive bandage; Translations: [Adhesive Bandage] Allergy to substance 9 Eruption of skin (disorder) [facility] (5 sources) cefOXitin; Translations: [cefoxitin] Drug Allergy Low blood pressure (disorder) [facility] (5 sources) Mushroom (edible); Translations: [Mushrooms] Food allergy Nasal congestion (finding) [facility] (2 sources) metroNIDAZOLE; Translations: [Flagyl] Drug Allergy 1 [facility] Repository Medications Current Medications Medication Drug [...] (ZOFRAN) injection 4 mg polyethylene glycol 3350 755793 mg / potassium chloride 1480 mg / sodium bicarbonate 5720 mg / sodium chloride 40354 mg powder for oral solution (1 source) Osmotic Laxative Start: 02-12-2023 NuLYTELY Yandy ry oral powder for reconstitution See Instructions, 2 EA, Refill(s) 0, See physician instructions prior to procedure., 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; Translations: [OTH SENIOR LITIGATION PARALEGAL CURRENT DRUG THERAPY] Onset: 2022 Episodic Other aftercare (1 source) intermediate (current) use of anticoagulants; Translations: [GROUP HOME CURRNT USE ANTICOAGULANTS] Onset: 2022 Episodic Other [...] Facility IntraOperative Documentson 0 04-27-2023 IntraOperative Documents [id number]#1.00 CD:127 [facility] Reminderson 04-27-2023 Reminders - From: Obey Zafar To: [facility] - Reminders/Recalls; Sent: 04/27/2023 09:59:23 EDT Show up: 04/07/2026 09:59:00 EDT Subject: Ambulatory Reminder Due Date/Time: 04/23/2026 09:59:00 EDT Reminder/Recall Repeat colonoscopy in 3 years(2025) due to tubular adenoma Normal [facility] Result Letter Officeon 04-27 Result Letter Office (Inserted Image. Un able to display) April 27, 2023 JANET CRUZ [address] [place] [id number] : 1950 Below is a summary of [...] letter prior to your next due date. [facility] [phone] Normal [facility] Consenton 04-25-2023 Consent [id number]#1.00C D:127 Normal [facility] Discharge Instructionson Discharge Instructions [id number]#1.00C D:127 Normal [facility] Main OR Intraoperative Recor don 04-24-2023 Main OR Intraoperative Record IntraOp Document Type FT Summary Primary Physician: Azeem HARPER MD Finalized Date/Time: 04/24/23 07:14:24 Pt. Name: JANET CRUZ D.O.B./Sex: 1950 Male Med Rec #: [id number] Physician: Azeem HARPER MD Financial #: [id number] Pt. Type: O Room/Bed: Endo 03/08 Admit/Disch: [...] VEGA, Stephanie Gan, Ileana Prado Role Performed Facility Sales And Admin - Primary Scrub - Primary Staff - Other Time In 04/23/23 10:35:00 04/23/23 10:35:00 04/23/23 10:35:00 Time Out 04/23/23 10:55:00 04/23/23 10:55:00 04/23/23 10:55:00 Procedure COLONOSCOPY(.) COLONOSCOPY(.) COLONOSCOPY(.) Comments Last Modified By: Paul VEGA, Stephanie Miller RN, Stephanie Evangelista RN 04/23/23 10:55:23 04/23/23 10:55:23 04/23/23 10:55:23 Entry 4 Entry 5 Entry 6 Case Attendee MEREDITH POE, Azeem Arcos COKE WHEELER, Malena Hutchins DNP, COKE WHEELER, Mejia N. Role Performed Surgeon - Primary COKE WHEELER COKE WHEELER Time In 04/23/23 10:35:00 04/23/23 10:35:00 04/23/23 [...] and tissue Entry 1 Skin Integrity Intact, [place], Warm, and Skin Abnormality No Dry Outcomes Met? Yes Last Modified By: Stephanie Miller RN 04/23/23 10:38:44 Post-Care Text: The patient is free from signs and symptoms of injury caused by extraneous objects Patient Positioning FT Pre-Care Text: Identifies physical alterations that require ad (more content not included)... Normal [facility] Consent for Treatmenton 04-07 Consent for Treatment [id number]#1.00C D:127 Normal [facility] Discharge Instructionson Discharge Instructions NANCY JANET [...] 24 hours Discharge Diet(s) Regular Pharmacy Information [facility] Discharge Instructions Discharge Instructions New Follow Up Appointments after Discharge Follow Up with Azeem HARPER When: Within 1 to 2 weeks Comments: Call for any problems. Where: [address] [place] [address] [email or web address] (1) Medications What How Much When Instructions [...] inserted through (more content not included)... Normal [facility] Comment on above: Result Comment: Elec [...] Return to activities:: After 24 hours. Normal [facility] Comment on above: Result Comment: Elec tronically Signed By: MEREDITH POE, Azeem\.br\Date and Time Signed: 04/23/23 10:56 EDT Other Comment: Mariza horn Attachment - attachment storage system not supported [id number] Can be viewed in source systemMissing Attachment - attachment storage system not supported [id number] Can be viewed in source systemMissing Attachment - attachment storage system not supported [id number] Can be viewed in source systemMissing Attachment - attachment storage system not supported [id number] Can be viewed in source system Main OR PACU I Recordon 04-07 Main OR PACU I Record PACU Phase I Document Type FT Summary Primary Physician: Azeem HARPER MD Finalized Date/Time: 04/23/23 12:03:47 Pt. Name: NANCYJANET D.O.B./Sex: 1950 Male Med Rec #: [id number] Physician: Azeem HARPER MD Financial #: [id number] Pt. Type: O Room/Bed: [facility] 03/08 Admit/Disch: 04/23/23 00:01:00 - 04/23/23 11:25:00 [...] By: Yari Krishnan RN 04/23/23 12:03 Normal [facility] Main OR Preoperative Recordo n 04-23-2023 Main OR Preoperative Record Holding Area Document Type FT Summary Primary Physician: Azeem HARPER MD Finalized Date/Time: 04/23/23 10:35:29 Pt. Name: JANET CRUZ/Sex: 1950 Male Med Rec #: [id number] Physician: Azeem HARPER MD Financial #: [id number] Pt. Type: O Room/Bed: [facility] 03/08 Admit/Disch: 04/23/23 00:01:00 - Institution: Case [...] By: Briana Vergara RN 04/23/23 10:35 Normal [facility] Monitor Recordon 04-23-2023 Monitor Record [id number]#1.00 CD:127 Normal [facility] Monitor Record [id number]#1.00 CD:127 [facility] Patient Education - Texton 0 04-23-2023 Patient [...] becomes painf (more content not included)... Normal [facility] Pre-Certification Formon Pre-Certification Form [id number]#1.00C D:127 Normal [facility] Progress Note-Physicianon Progress Note-Physician Patient: JANET CRUZ Age: 72 years Sex: Male : 1950 Associated Diagnoses: None Author: Jose POE, Luis Antonio Mi Postoperative Information Postoperative disposition: Postoperative disposition: To PACU. Optimetrix number: Optimetrix number [id number]. Anesthetic utilized: General. Physical Examination Vital Signs [...] criteria ( To home ). [facility] Comment on above: Result Comment: Elec tronically [...] Abdominal pain in male / SNOMED CT 68168014 / Confirmed Adhesion of intestine / SNOMED CT 38849372 / Confirmed Benign prostatic hyperplasia (BPH) with urinary urgency / SNOMED CT 6413748686 / Confirmed Binge eating / SNOMED CT 8515070868 / Confirmed Diverticulosis / SNOMED CT 8504175522 / Confirmed History of amputation of hallux / SNOMED CT 6503952068 / Confirmed History of colon polyps / SNOMED CT 5979903900 / Confirmed HLD (hyperlipidemia) / SNOMED CT 01370229 / Confirmed HTN (hypertension) / SNOMED CT 8873927351 / Confirmed Morbid obesity / SNOMED CT 030996028 / Confirmed PTSD (post-traumatic stress disorder) / SNOMED CT 02365875 / Confirmed Sleep apnea / SNOMED CT 175160266 / Confirmed Thromboangiitis obliterans / SNOMED CT 58800817 / Confirmed Unsteady gait / SNOMED CT 73815537 / Confirmed Venous insufficiency / SNOMED CT 445563036 / Confirmed, Active Problems (15) Abdominal pain [...] in all extremities. Gastrointestinal: Soft, Non-tender. Plan [place] [employer]esthesi[employer] (ASA) physical status classification: Class III. Anesthetic Preoperative Plan: Anesthesia General. [facility] Comment on above: Result Comment: Elec tronically Signed By: Jose POE, Luis Antonio Mi\.br\Date and Time Signed: 04/23/23 10:37 EDT IntraOperative Documentson 0 02-02-2023 IntraOperative Documents [id number]#1.0 0CD:127 [facility] Coding Summary.on 01-31-2023 Coding Summary. CD:[id number] Ww+ PGhlYWQ+QM5UHMIrJ49hnVL ujA0vH1ROMPsMWwlpROCYNZ dIGbRonnGzET0fdAPvNAYx IC8+WN1tCRVqDezcoAZmg3P 6mFH0T94bmi1hJHjpvTY3ZR VxMwUdujmxv3pbsZg4SHfhG mluOyBt LLTevP34RDW0oZ30Rw03sBU sdKIkr7vkaOq3GfBuVANaOB A7bGwrZLufo8LmGGEsL28nb TEwn6E8 CKPpuVjrzITlMbLybHL8eN1 aKLmelsljl3pltpihWbv2hq 27dAXej4O5cQJ6D4FhyaK3L GJvbGQg DpscwCFUbR3skubik1jvstr fIqDsWAKfKCp9CMc3VIUuiE cwJjDxEP04BBA3EWCljuCuO 2FsLWFs oNzrJrP0h7V3Gq3GR5ISTye fE9CGAFSFFUwbzLQ+PC90cj 58Y7WnDlkzPmt0RGCeRGW9h LN0zI0t BXEbVRkem7F1zPG8M0ZhagG xvi8tm3ksCYTfQOwwT82xuY Yun2Z5VKLxrYZ8ZJEseVefT iBzaG93 Oyc+VWPnfQgka3DpWjojm1d vd4nklRz2BlswVGXrutEqnC koZJT9a2SnPs8tMIJxaOZ3d UW1tB1b OeZvOpK6BScyU898LtHcrVZ qGtecQ37tL8CqlXV+PHRyPj x0BHTzbTtzEF9eG4HeFGJwm mctbGVm lEtuBX9zIQSdyqaoUYJxyR6 sRCBpU1y8AoJzTgP3XUzcI3 VtVMByupfeWz06fB4cYuByI gZ7CRfx U3JdwgN9EXAnfSDcLWjuVBR 5T92ky0P4KLRdVOJmCFU4fH T2mJ5igNdmzteeaNWtgGfqy mVydGlj EHhrEAssF948XWIwmYyhEfJ vZGluZyBEYXRlOiAgMDQvMj YvMjAyMzwvdGQ+BCJzLMW4p WxlPSAn zGXrFCfhSr2nuTsheNlpAZ0 cHBGzklcsIRVzaG7zRLQvqP FrfJnyTJ1yVYPpenaqg222J iAxMHB0 PZYjuXDuU8AqoQ8yXtBnZSE hBRZbF1BnbDDlRTyyB135IO afXaC5JMXfmsCkW0HpSXHeq WduOiB0 k0Y9Wf9Ju1GsfnzvM8WotLW bNnLzJppnCTb3E3PwNtspbO I+EK85REPqJN70CKj9JCT4m WxlPSdi JWAgU3FymI8yNcRmMPEsJKH kOyc+PHRhYmxlIHdpZHRoPS kiQEZmJfMhdWidQX0qBw7bK GVyLWNv pHmqzUPrRoLns6czCAAwLTx fQT7bpWjoE5LxxNZ4ZKXqr9 a7Rp49T30cA5CsfSI+PGNvb WH9jEA2 dS5nLrOpTiZ1FIoaJ498KyB faMCjZazaf2bec9olyRj5Pw X9OPHtjxAqkUrnXYF4f8DjZ a50I41t IHdpZHRoPSIxNSUiIHZhbGl qec2uxF6gLy0+PVEuyWE4yS W0nG9nUjAoVrJ0VEmwS401K nRvcCIv Psaxi5onh2scmMp6ZuEnMDR tyjYvqFpuDPO2u2DeUz15D5 CrfTgnd6OoOej2kh02iPBcf 9P0iVC5 B8EdWZNglotmxHAdwGpiPQ9 pZJYghccwQZTbsQ4iRZYsX4 r0EySbAoH9UMpzA6JgocT7K GJvbGQg NQDnxRDWjG3dymaaz0haizd nItMxYCGpITu0LRq5OPJedM dpPdJtOBF5IpG2OMD3wEZhr M2xmAai guhbmW5iYrw+HIL0zMNyyFX NGD8qIdskpMI+GVBeQEF6dS keVUgwFKRkzR7pKFPyI1e9N iAwLjA1 VVieB6CctxA1KVPkcFNpWJU slSKXyP0rlitxl8duxuxjVw GhMTNbNWt6VSn8FNZbuTfzK iBsZWZ0 OrX4XPV7hSJgcN2yaIpqadn ycI1oSbk+VltqaRbnIXJ8SC t5X7XoOck3ZPZxeLvcYA0kj GFkZGlu Vx5asBhxpNagQZ8yNYTjjhy mt246DkIsi2zgMENrzHPlGT gjVLV1N47bd4S1VXSnSLUyW KL8hCN2 aX2opJeguoxmlBMcpYorbtH ohHboBWyjGOmvT201IAAnxD ydLoWmXLm1T6ErZxw5MRDto CcxWX2u eEVdCJmeEc4rtJcisInmGN2 jXCAqrhhsm691BrPjj2ptSZ LleCYdPLsqHSD9O45et2Y0Y CMwMDAw BFP3vSA2kR3spWfvkedptXR mdDsgdmVydGljYWwtYWxpZ2 34OMNzsLizOpRnkLl5C5SuX qn5VZJj fBciYD6vbIAdZEyqSb0nrPc wsObjUZ2zFUMourubn650Ax Buq2kjHQUqzBTmVTcwUXO4P 21jw5R7 DCHzPVMpRNO3nPX8oH0ipSp nbjogbGVmdDsgdmVydGljYW jkIGytM737HIVmvXrmDnHty GllbnQg HYnpAYd9G1RqUwhlhFD+PC9 5RJUrPM27zUThpWDnu2envI l3RzPrZKTxDQC8nNrkUWkti 3JkZXIt X33bjSRlo8L4YINrjHmapTW qVrSurTN9bN5iCBqlpubmc9 fbpyrcQcekq3xmms13zV62T 29sIHdp ZHRoPSIzMCUiIHZhbGlnbj0 ljC5dOb0+MDVoqEV3iFW8qK 0yRBEyUxQ6UEccW905KgTvp CIvPjxj d8mmw0vnwAv2MuI9WPMcamC bvOviBXB1s9ZgRn22L17zAY dpZHRoPSIyMCUiIHZhbGlnb w3peH6v Ii8+JMWilDV4gIJ8yI0xCfC yAgY2CKibJ367NaGtaUBiWo nyZ30yN9WyuHR+ZHEcJbu5Z CBzdHls DX5thMQtEHulVv4bIJZ8HlW kRkTaTYclK3AcJEFkcdepgn uarVY2DTSlDKGqgY77Xv5ro DogMTBw ePEXeR7iohivy4opspsaYuF bMKTaPVj2IRc2UENpsKquWx NrGYH1EzI8QHR2vVOebJ9dz Glnbjog iE9mV6CbMVNphamzUq33sA9 wHlSpFsQ8YHygFoa+SEVSTU FOLCBEQVZJRDwvdGQ+PHRkI YP0yEwv EFshBWDamZ8iFHYjI3z5NvI qFuA1IEqyE3NmRXWbgpxlFn 81hG9jExCaUtS2TAbaE4Mey mQ7HLFl uXThTSqeKOC9K20ut8I7ISN jDHAhTUV3bRV0kJ7vuIyats ogbGVmdDsgdmVydGljYWwtY XtjI265 JUQdxKtzOuRqOaAnLzL6HPB 8F4XvHwm9UFDmsJqvEA1atD CkOTorVp9afQwvpSkcBP3qZ TBpbjtw EFWnlS6fBGXvkVHiqMfgZH3 zAWIsykzdt575ClCyIBE7KI OxnJRlW2GqcS7yObBhBYJoG HTvV0Kc aXXnDVvuP005GFreBzO5GTO xknPaS1DlQPYpgHnzFyD7t8 Q9Cf88YJPRMLWxhniorGA+P HRkIHN0 aPqhPIzpPBXmoG4zYDRuT7c 3ElMdYvA4SVrxA3LjOHYopy ryNy25tD6wCoQfSrF0ATujM 2MlatJ5 AMFvaQHqXMjbVYS9L86ru8L 4RZXyFOPuBKT3bTK6aZ6keO lnbjogbGVmdDsgdmVydGljY WwtYWxp H902XFOqlUgkEy2ydGK9I6D eDbm2UVUroLpyFA8ipFTfPE xySi4xvSnvkOykJE9mOPJkt jtwYWRk yN1fYNRibUCgfQdmJS3zHCV zwtgyg874FrQaFKR1VPHehT MvT1ScjG1vArSiDEErMPZdY 3RleHQt AIfoQ636ZFuyEaZ9PFLmpiE mA2HgHULjdZfuIvJ8q1L8Gu 9McLBdGFOhOP42NC34QF02B 3RyPjwv dGFibGU+PHRhYmxlIHdpZHR gCXruXFAeSmQjpVjnGQ1oTr 9yZGVyLWNvbGxhcHNlOiBjb 2xsYXBz WVxnSO8orCsoW7CznMP6XEI bq6q1Nr12P87mU4GtfEX+PG BbpRB9fDY0tC6fYzFdTiP3A PjyL272 YaUcfQTaVxxur7otn7punFn 2OoXvBHRysjZmjZmvZWB1z4 BvPr81S13mWEsuDNSlEHFdN CUiIHZh lPuwql6knW0iLa0+PGNvbCB 0tTK4zI4mYbUpCbH6PKacM4 47ZwKgmERpBmxqH84tA5Grb XA+PHRy Bqt2BYZtaGeeOW5dtFBbTLk nPc9fZVF1RqOrPuCxVEtyP5 HsTBMwlztymjsceQV2JDXsF DUwaW47 Du3pyWrnDe7xMKPgYSH7IUA ruBTuU7CsjM6sVyAuFTVbZZ ZeO5WrrCBjEQweE907EVemM nI1WFQs tqGiQ8ZbFCIyrVcqPbH3w4Y 5Jg5KyYeslPSdPP8yQmDhXY k1L0FlLxk6ZGIiiTceKP9zq GFkZGlu Zl0hwHxqtRarFE0cDKZcolg dz257RzJaz7lsUSTgyFZaOH maWKY1W32yk6H5BYKvJDKtE PU9bIH8 nQ2xtXniagpyyWBrkNmabcI buOjoJRcmUJjlS137LJFjrJ osZtJMElm9K6OrHzd5ESLwe PalLM8h uSSuPRtwNs6miWlkwTimPT3 vEQAsvidlr604IaHfo9vpTH MlhKWlPVptJXA1X42br8X9T CMwMDAw VPR8pQY2kQ7ipRaxsonbtVF mdDsgdmVydGljYWwtYWxpZ2 27YWWtxAzjPb5PSqa3E1TkI qm0VARn eBtoFD7isNHgJXckVp0gaGn tgVzwHW2dZXEeksvsf319Bh Ycz6xvNUJlhBWbAJsrRZO6N 82fx6Y2 WRGrVTWzLWB6kLE3nC4vsMw nbjogbGVmdDsgdmVydGljYW irJPubU012DVLkcRfmSwFqn WVyOjwv dGQ+WO68dh11J3FvPjyuSbi 0HGPbENX0iAC3tA2lOMTnTM pfl7F0kQB6Q3PrauZxoo1tn 2xsYXBz GUvvW90s (more content not included)... Normal [facility] Consenton 01-31-2023 Consent [id number]#1.00 CD:127 Normal [facility] Discharge Instructionson Discharge Instructions [id number]#1.00 CD:127 Normal [facility] Postoperative Documentson Postoperative Documents [id number]#1.00 CD:127 Normal [facility] Main OR Intraoperative Recor don 01-30-2023 Main OR Intraoperative Record IntraOp Document Type FT Summary Primary Physician: Azeem HARPER MD Finalized Date/Time: 01/30/23 13:12:06 Pt. Name: JANET CRUZ/Sex: 1950 Male Med Rec #: [id number] Physician: Azeem HARPER MD Financial #: [id number] Pt. Type: O Room/Bed: / Admit/Disch: 01/29/23 [...] POE, Luis Antonio Sheth RN, Donell Black IT SERVICE CONTINUITY SUPERVISOR, Sandra Joseph Role Performed Anesthesiologist of Facility Sales And Admin - Primary Scrub - Primary Record Time [...] Given Participants S., Donell Sheth RN, Schafer IT SERVICE CONTINUITY SUPERVISOR, MEREDITH Anderson MD, Maher Time Out Complete [...] Extended Posi (more content not included)... Normal [facility] Consent for Treatmenton 01-07 Consent for Treatment [id number] D:127 Normal [facility] Discharge Instructionson Discharge Instructions NANCY JANET [...] months Where: [address] [place] [address] Business (1) Medications What When [...] or questio (more content not included)... Normal [facility] Comment on above: Result Comment: Elec [...] to activities:: After 24 hours. [facility] Comment on above: Result Comment: Elec tronically Signed By: Azeem HARPER MD\.br\Date and Time Signed: 01/29/23 09:47 EDT Main OR PACU I Recordon 01-07 Main OR PACU I Record PACU Phase I Document Type FT Summary Primary Physician: Azeem HARPER MD Finalized Date/Time: 01/29/23 10:35:42 Pt. Name: JANET CRUZ/Sex: 1950 Male Med Rec #: [id number] Physician: Azeem HARPER MD Financial #: [id number] Pt. Type: O Room/Bed: / Admit/Disch: 01/29/23 [...] By: Demetria Shen RN 01/29/23 10:35 Normal [facility] Main OR Preoperative Recordo n 01-29-2023 Main OR Preoperative Record Holding Area Document Type FT Summary Primary Physician: Azeem HARPER MD Finalized Date/Time: 01/29/23 09:11:18 Pt. Name: JANET CRUZ/Sex: 1950 Male Med Rec #: [id number] Physician: Azeem HARPER MD Financial #: [id number] Pt. Type: O Room/Bed: / Admit/Disch: 01/29/23 [...] By: Donell Sheth RN 01/29/23 09:11 Normal [facility] Monitor Recordon 01-29-2023 Monitor Record [id number] CD:127 Normal [facility] Patient Education - Texton 0 01-29-2023 [...] or gets worse throughout the day. Normal [facility] Progress Note-Physicianon Progress Note-Physician Patient: JANET CRUZ Age: 72 years Sex: Male : 1950 Associated Diagnoses: None Author: Jose POE, Luis Antonio Mi Postoperative Information Postoperative disposition Optimetrix number: Optimetrix number [id number]. Anesthetic utilized: General. Physical Examination Vital Signs [...] meets criteria ( To home ). Normal [facility] Comment on above: Result Comment: Elec [...] Abdominal pain in male / SNOMED CT 55678864 / Confirmed Adhesion of intestine / SNOMED CT 64111325 / Confirmed Benign prostatic hyperplasia (BPH) with urinary urgency / SNOMED CT 1251056250 / Confirmed Binge eating / SNOMED CT 2392621533 / Confirmed Diverticulosis / SNOMED CT 2068330291 / Confirmed History of amputation of hallux / SNOMED CT 8583808886 / Confirmed History of colon polyps / SNOMED CT 7881543210 / Confirmed HLD (hyperlipidemia) / SNOMED CT 10999250 / Confirmed HTN (hypertension) / SNOMED CT 8062983672 / Confirmed Morbid obesity / SNOMED CT 194259813 / Confirmed PTSD (post-traumatic stress disorder) / SNOMED CT 07667096 / Confirmed Sleep apnea / SNOMED CT 715993318 / Confirmed Thromboangiitis obliterans / SNOMED CT 73185854 / Confirmed Unsteady gait / SNOMED CT 18123651 / Confirmed Venous insufficiency / SNOMED CT 855798549 / Confirmed, Active Problems (15) Abdominal pain [...] Respiratory: Lungs (more content not included)... Normal [facility] Comment on above: Result Comment: Elec tronically Signed By: Jose POE, Luis Antonio Mi\.br\Date and Time Signed: 01/29/23 17:42 EDT Coding Summary.on 01-25-2023 Coding Summary. CD:[id number] Ww+ PGhlYWQ+PG2TUBRvM95mhZY boJ8qL4RASQwKPjzeICMOID qCKlPxhnPgRG1nmIYqVKMc IC8+QD2gERDxQcsroDRqu1B 2dAU6W97lfm2aWZunfPB4FR FhDfWiiykcs0defYx1AQbmF mluOyBt DSGjiQ78IHP0xX12Ec31cOC ywNZyw1uktHs0VxMxYVCqRO F1nHsiPFtxy8CrBYTcZ62pm SQnq8T3 VLRbkOzijLOxFzLkmXE2uB9 rMQkwtogfa7uwquqrGwm1dp 98wLSeu8F7dGN0I5DsflD4U GJvbGQg EprxoGXToW0tyitzx3exhnl oOmDcJYNfSGb9LFy1ARPjoM ldAcMoJD91BWM7YIOtytSxV 2FsLWFs jBxhHyO8i5S3Me8AO2ATVom vC7BOJFDIFMsyqXD+PC90cj 43L1MvIzumVzz1VZJaKYG5t LW1hU1e YUQnJPtoz6P1fYZ2C9HxlmN als0zq7wwQQFgHLgrG66qzT Zqp7Z5FVMxqYX6NUXuhZhmM iBzaG93 Oyc+YOOvrDnxg6JxPtyjf5w va1uqvEz6LxqwQAAaeaVtbC njHLB9q9YoQw1cBWSjlUB7g NI4bU6c FcSsUjA6ATlpB715LgKdcTW cQgazV47tR0PrkMI+PHRyPj x5BAGgwHqoWI1tV2JnHWYxb mctbGVm pWjpZX8iKZQsnyykDKMxfO1 iRCLgL5i4JqXiUgE9LStoP8 CrBQBtmzqxXn92zL0hWyRdH jB9RQct S0JuazX3KQWmsWNuPGisFVI 5E86wt5R2UAHnGUSuOSN9iR M7sH3ltZodgzmtvNDkpYwcj mVydGlj SDszRDybB268RWCujDtiRvJ vZGluZyBEYXRlOiAgMDQvMj AvMjAyMzwvdGQ+WURgANU0c WxlPSAn fTGtCShfQh6apZmusVspLM9 iKILktlqdQFMytI6yNDQzcR AtqKdkCA2dKELbzpgmy203W iAxMHB0 HGLukGFsC6NysD4tRoAjZYG nQTRkQ5TwsAWkEOlcC966VU qqBeO3UFNftrBgN7IkQONef WduOiB0 k0W5Fp1Md1GcldxaS3ZnoIU fYgRvFokcFMm8K0UgXwfhlS I+OI91SUUkIQ08FOe6NHX7w WxlPSdi PHFiG9PfcA2iZwIbTJGuIFH kOyc+PHRhYmxlIHdpZHRoPS wbQUMiWfLrqFnqVE4wSn3eS GVyLWNv kXhpaDRrQrZsw3rnFEYzDCh mNA5neBjvQ4VxqPG2PXDhs4 l5Wo92M30mI8UmdUO+PGNvb TN6tRV7 kR9hDbKuKpG6UCwrT727BcT thNEkIynyz4atm1pqsRt6Rm S1XZQwrkKgwPalGJN4r2YhT r44N83j IHdpZHRoPSIxNSUiIHZhbGl ogk7daV0bQm1+IMTmqXM7iE Z9sT3vWvZkTxV9BFvxK491J nRvcCIv Mchps6wyr9zlxAg2JzMfOUZ owmAwxVmdGLV1s3RrUn14D8 WnqReko7NrKcd9is97kESem 3X5gKC2 X4PxYRVycebbxXOkzRkiDZ5 xKANosunsAXHsaM2rBSOlB6 y2PpLxLlP9DUkiP7VucbE4B GJvbGQg GERhiQXJlE9itfznj2azguz gFrGhYLSpCHs5XCo6MRTcgK doAbUwPBO1YzJ6IET8zJHjq P7qnBhz aipwfG5rDvz+JMW9bEPcfZX THF8mBtowlDI+NXIdFEZ6dH djCQxbBTFnnQ6eWZTrU6g3C iAwLjA1 EVqxL7CmabL5HGOzjEQcVCX hiMYKxO3wyjsfw5kvumdjVd DyAYHpZEp2UUg8BUUvcOyhT iBsZWZ0 WlE2MYH2mFIkzY2keJzbevt gtS4lOdn+AvolcFndXAX2PL i4Q1ZfLwj0HGGvfNnzNE8lh GFkZGlu Hl1rnUuupCftZS8wIEEcrwy aa280RhZzk1xeLCGcyPLzYS jeRYY3R03ur4F8OBBhXBTtI GS7hHZ2 dA0bcUobhlmacRZzqJiidxT tlLksOTuuTRlcG542BPDgbQ bfXzVsOQb0K9JhUxu3NOZep KjxQY9m pLPfGThvEp4jcSfyuEsfGJ5 sVIEwdsrpx358CwWho5glZV AnaRFxXXkiUPH1C70sx4B4A CMwMDAw VNX8sPQ8vE3sfQdizuekcSK mdDsgdmVydGljYWwtYWxpZ2 60QKYfnRqlXwYzlZz4Z3AnA gz2UDJl pFihBR9asEPlLGwxSo3csTd hfJvlNF7mSUSyqhnjq123Ej Jyv8mjRXVfwGTaFXswOJK4P 08wy0K5 ZDLjXUDgKXP5dBJ6gQ5faPp nbjogbGVmdDsgdmVydGljYW zlDResZ501VUZwdIehSdYez GllbnQg VIchCDz1W5IgAoefzKJ+PC9 1HWHcES37vVAdaUNmu6ypwH o2SeLkHPRgBKR1cPcrUAbke 3JkZXIt B68niQXud5H4TRAskZjrxOZ tXeYmmMY2sS8eGMpsmqrqw1 cafmxpMtrsp9nyij16xP45Y 29sIHdp ZHRoPSIzMCUiIHZhbGlnbj0 umF7iQr9+LEJcySZ0bTQ4oE 3wVQOsZvA1UIxuO014WnOtd CIvPjxj x2vvc5vtnRd1IkL7ZZMntiQ poJpwYVP1k2KxNl40X96xJR dpZHRoPSIyMCUiIHZhbGlnb e6jaR6z Ii8+DZRwaWS7lOM1xQ9eExW wPhQ9DAqeS803ZkMtoTPnNq dvB13zV8BwfDN+VUJsXlx5G CBzdHls YG7caVDfVZdgKc6cIDK9BkE gWfElOGifZ6TlLNYwmdcvbm jtbNN0ZHEdZQGixT03Lj0cu DogMTBw sXORdY4riihlz4zsvlxgQnN cVRJbGEr1DKj7BCJxeZtoAu SlHMJ8PoS8QRS7aPSpnQ5bu Glnbjog kX7uD6TuLZOxklqaEz03iZ3 vQsTrLpS4QDuqQdo+SEVSTU FOLCBEQVZJRDwvdGQ+PHRkI VO6pNqp JDaxMEIerM3dYMIsY0b5QrB qHaN2STswM6IfRSXzuvzoSr 06oX6jLlQmZuC5UWaiT1Rqx yQ3DODn tIEaOAmmHPZ6J63wx1X1TQZ fPZNlWPU9rNU5lJ3yhByoqx ogbGVmdDsgdmVydGljYWwtY LsxC937 YLBcgSnsTjSmGvUlTjL7QMU 2O6LzOck5KNYhwMziSP5vlN QgVDjyVf7ckJicoRfqJK0lU TBpbjtw LPMdqJ8uHQQsjAIfgRywFD9 sQGZcerpse373ZfDcDRP0AC XzaWGjK0EmsM3tZsCoDWMyB MHwZ8Xp fGNgCJadE661SBskFhG7VQG cncBdR7ZjIDHmqHyuTdD2g0 D9Pv89NSCIQVAncxtezAK+P HRkIHN0 kMywLMkoZBGuvR8gRILfZ4i 9SsDqKxM7QReyU7MrLETwki foAg93aN8iDdRaJgL3DVzvS 8OrdpN9 RPAzxAMqXJggMFK0G38ee0M 5IBOmJDKxHXH9yPX4xF7auZ lnbjogbGVmdDsgdmVydGljY WwtYWxp R658EFFqeZltGa4tlKT5O7E sPkv6WSVdzDfvJL1rxRDpVC znYo2buJzzhMkwNY5cDUYpl jtwYWRk fQ4hVQMqlRLuaZnmUY7wOPY mkdinw544PvMvQRG5ZLNmmZ PjU0WjxS5wClIzNNGvQOAfI 3RleHQt IUbnB822QXtjKsL1FXCcauB sO3FlCHGvrXcrHpK4d4A1Al 2LYIF7slIkuvd1B9ByOxfrt HI+PC90 FWZwDB20uJBldOOjd8pvhWm 7FoSkMAWcYFH3xGshEQzaa8 EhMOAmX74sgATkv5U7IWMsg GxhcHNl BnSciET4rO4uHPumbkuvv2d ktnmlTcyqw7zloy72yS64A1 9sIHdpZHRoPSIzMCUiIHZhb Pnzkj0n fH6zOo8+XNEmmAV2uJL3rN0 oMxHhBzI8IFgoJ562SvMorC NtPujiu4upy1ohfEh6MmXsZ SIgdmFs yObrDAY4z3VqYd08E43dBVq pZHRoPSIyMCUiIHZhbGlnbj 7jxJ8xUn2+MA6hc5ncqv63v D48dHI+ JLTeBJV5yRgtXAtnBLPqeF0 qHAcsCbV0YKZlJvPfrX82eZ HoFRmdZo3qrJpjsGggAR7gP TBpbjtm v980DjKhs8cyNWPmpMHyBMa dAOB4Q43jr0A0WXWcJEDnQR O1aVB0iA5eoLjthvjcpSRsr DsgdmVy tXlgLDocQCxhZ835BUPvxNp rIxZbiJGhE1yudpDYDG9bVx wvdGQ+QUYjZBM0kOgsBOfhT GDsbR8u KVDoX2r5DjMvIkP0AQzyD8P wuuJ2VNWgjRElHBLqcYKEaR 6unrmeo0wutenzXsQuMSKbB Xr0SZv6 VNLeuDshNfVoADI8QnL8BUK 1lXCxcT6qiHnqpldmzB5fWx c+RklOOjwvdGQ+JHNzCNP7n WxlPSdw LGQdtD7qZLZdV2k7XvWkKvG 7XKgfR3PwijZ2SRXbbASdMA GwtLKDbL3tjtpyl0jfxatsK zAwMDAw IEt4IAu9ZRYopUiaQzPsBJJ 0SgB1XGL7mZXvqN0slHpcfs urvB3wOiu+TVJOOjwvdGQ+P HRkIHN0 dGjdDKraHIYnzL3gYBIrJ1j 9WeRoLlM4HKfaU0AuytA9EC FrpSUaYJJrvYAYkS3ftwpom 2xvcjog GpSuICZdQKn2BNt3PXIsnJt wFwYlAAT6ZtL6XSE1eQThdD 4ggQmbnqdnjE3vEuv+UGF5Z QQ9WV65 BQ73C7NhFghqpNIpoHJ+PHR hYmxlIHdpZHRoPScxMDAlJy PhyDhjPZ2yJa4iSAJqWKHfe GxhcHNl FkNru5rk (more content not included)... Normal [facility] COVID-19 ([facility])on 01-22-2023 Performing Instrument FT [facility] 2 Normal [facility] Comment on above: Performed By: #### 2 [id number] ####[place] [address] [place] [address] SARS-CoV-2 (COVID-19) RNA PRASHANT+probe Ql (Resp) Not detected Normal Not Detected [facility] Comment on above: Result Comment: This test result should be correlated with clinical presentations and medical history by a healthcare provider to determine its clinical significance. This assay was performed by a reverse transcriptase real-time polymerase chain reaction (rt PCR) method on the [employer] system. This test has been authorized only [...] or revoked sooner. Performed By: #### 2 [id number] ####[address] [address] SARS-CoV-2 (COVID-19) RNA PRASHANT+probe Ql (Unsp spec) Pass Normal Pass [facility] Comment on above: Performed By: #### 2 [id number] ####[address] [address] Specimen source Nom (Unsp spec) Nasal Normal [facility] Comment on above: Performed By: #### 2 [id number] ####[address] [address] Consent for Treatmenton 01-06 Consent for Treatment [id number] CD:127 Normal [facility] COVID-19 ([facility])on 01-19-2023 ADMITTED TO INTENSIVE CARE UNIT FOR CONDITION OF INTEREST:FIND:PT: NO Normal [facility] Comment on above: Performed By: #### 2 [id number] ####[place] [id number] EMPLOYED IN A HEALTHCARE SETTING:FIND:PT: Unknown Normal [facility] Comment on above: Performed By: #### 2 [id number] ####[place] [address] FIRST TEST FOR CONDITION OF INTEREST:FIND:PT: Unknown Normal [facility] Comment on above: Performed By: #### 2 [id number] ####[place] [address] HAS SYMPTOMS RELATED TO CONDITION OF INTEREST:FIND:PT: Unknown Normal [facility] Comment on above: Performed By: #### 2 [id number] ####[place] [address] HOSPITALIZED FOR CONDITION OF INTEREST:FIND:PT: NO Normal [facility] Comment on above: Performed By: #### 2 [id number] ####[place] [address] STATUS:FIND:PT: NO Normal [facility] Comment on above: Performed By: #### 2 [id number] ####[place] [address] RESIDES IN A CONGREGATE CARE SETTING:FIND:PT: Unknown Normal [facility] Comment on above: Performed By: #### 2 [id number] ####[place] [address] Physician Referralon 023 Physician Referral [id number] :127 Normal [facility] Ambulatory Visit Summaryon 0 11-10-2022 Ambulatory Visit Summary JANET CRUZ :1950 Visit Date:11/10/2022 Ambulatory Visit Instructions Your Diagnosis History of colon polyps Your Care Team Attending Physician - Karina Oneal CNP Primary Care Physician - Jaik Cardoso This Is Your Medications List Contact [...] including vitamins, herbs, eye drops, creams, and xxsx-oce-zzwzble medicines. ? Any problems you or family [...] of medi (more content not included)... Normal [facility] Consent for Procedure/Surger yon 11-10-2022 Consent for Procedure/Surgery [id number] D:127 Normal [facility] Gastroenterology Office/Clin ic Noteon 11-10-2022 Gastroenterology Office/Clinic Note Chief Complaint Colonoscopy HPI Staff Patient is a 72 year old male referred by [place] to schedule a colonoscopy. Patient has prep for procedure. History of Present Illness Patient is a 72-year-old male who presents for referral from [place] for colonoscopy. Review of outside records from [place] indicated patient with history of ischemic colitis. [...] provider of Coumadin. Has colon prep from [place]. Ordered: Colonoscopy (Hospital Procedure) Follow-up With When [...] Recorded pneumococcal 13-valent vaccine 07/18/2021 Recorded Normal [facility] Comment on above: Result Comment: Elec [...] including vitamins, herbs, eye drops, creams, and ppfd-xvc-ocuuqgc medicines. ? Any problems you or family [...] air t (more content not included)... Normal [facility] CULTURE URINEon 11-06-2022 CULTURE URINE Isolate [...] F Trimethoprim/Sulfametho xazole <=20 S F Normal [facility] Comment on above: Performed By: #### U RCX #### [facility] [address] [place] [address] Dr. Marylou eMdellin PROTIMEon 11-04-2022 INR Coag (PPP) [Relative time] 2.16 {INR} Normal [facility] Comment on above: Performed By: #### P T #### [facility] [address] [place] [address] Dr. Marylou Medellin INR GUIDELINES SEE BELOW Normal [facility] Comment on above: Result Comment: SOLITARIO RED INR: 2.0 - 3.0 CONDITIONS NOT LISTED BELOW 2.5 - 3.5 FOR PROSTHETIC HEART VALVE REPLACEMENT 2.5 - 3.5 RECURRENT THROMBOSIS Performed By: #### P T #### [facility] [address] [place] [address] Dr. Marylou Medellin PT Coag (PPP) [Time] 21.9 s Critically high 9.0-11.6 [facility] Comment on above: Performed By: #### P T #### [facility] [address] [place] [address] Dr. Marylou Medellin CBC AUTO DIFFon 11-03-2022 BASO # 0.1 103/ul Normal 0.0-0.1 [facility] Comment on above: Performed By: #### C BC #### [facility] [address] [place] [address] Dr. Marylou Medellin Basophils/100 WBC (Bld) 0.7 % Normal 0.2-2.0 [facility] Comment on above: Performed By: #### C BC #### [facility] [address] [place] [address] Dr. Marylou Medellin EO # 0.1 103/ul Normal 0.0-0.7 [facility] Comment on above: Performed By: #### C BC #### [facility] [address] [place] [address] Dr. Marylou Medellin Eosinophils/100 WBC (Bld) 1.3 % Normal 0.9-7.0 [facility] Comment on above: Performed By: #### C BC #### [facility] [address] [place] [address] Dr. Marylou Medellin Erythrocyte distribution width (RBC) [Ratio] 13.1 % Normal 11.0-15.0 [facility] Comment on above: Performed By: #### C BC #### [facility] [address] [place] [address] Dr. Marylou Medellin Hematocrit (Bld) [Volume fraction] 36.3 % Critically low 42.0-54.0 [facility] Comment on above: Performed By: #### C BC #### [facility] [address] [place] [address] Dr. Marylou Medellin Hemoglobin (Bld) [Mass/Vol] 13.4 g/dL Critically low 14.0-18.0 [facility] Comment on above: Performed By: #### C BC #### [facility] [address] [place] [address] Dr. Marylou Medellin IG # 0.02 10e3/ul Normal 0.00-0.03 [facility] Comment on above: Performed By: #### C BC #### [facility] [address] [place] [address] Dr. Marylou Medellin IG % 0.3 % Normal 0.0-0.5 [facility] Comment on above: Performed By: #### C BC #### [facility] [address] [place] [address] Dr. Marylou Medellin LYMPH # 1.0 103/ul Critically low 1.2-3.8 [facility] Comment on above: Performed By: #### C BC #### [facility] [address] [place] [address] Dr. Marylou Medellin Lymphocytes/100 WBC (Bld) 14.1 % Critically low 20.5-60.0 [facility] Comment on above: Performed By: #### C BC #### [facility] [address] [place] [address] Dr. Marylou Medellin MANUAL DIFF REQ NO Normal [facility] Comment on above: Performed By: #### C BC #### [facility] [address] [place] [address] Dr. Marylou Medellin MCH (RBC) [Entitic mass] 29.6 pg Normal 25.9-34.0 [facility] Comment on above: Performed By: #### C BC #### [facility] [address] [place] [address] Dr. Marylou Medellin MCHC (RBC) [Mass/Vol] 36.9 g/dL Critically high 29.9-35.2 [facility] Comment on above: Performed By: #### C BC #### [facility] [address] [place] [address] Dr. Marylou Medellin MCV (RBC) [Entitic vol] 80.3 fL Normal 80.0-94.0 [facility] Comment on above: Performed By: #### C BC #### [facility] [address] [place] [address] Dr. Marylou Medellin MONO # 0.6 103/ul Normal 0.3-0.8 [facility] Comment on above: Performed By: #### C BC #### [facility] [address] [place] [address] Dr. Marylou Medellin Monocytes/100 WBC (Bld) 9.2 % Normal 1.7-12.0 [facility] Comment on above: Performed By: #### C BC #### [facility] [address] [place] [address] Dr. Marylou Medellin NEUT # 5.0 103/ul Normal 1.4-6.5 [facility] Comment on above: Performed By: #### C BC #### [facility] [address] [place] [address] Dr. Marylou Medellin Neutrophils/100 WBC (Bld) 74.4 % Normal 43.0-75.0 [facility] Comment on above: Performed By: #### C BC #### [facility] [id number] Marylou Medellin Platelet mean volume (Bld) [Entitic vol] 8.8 fL Critically low 9.5-13.5 [facility] Comment on above: Performed By: #### C BC #### [facility] [address] [place], [place] [address] Dr. Marylou Medellin PLT 180 103/ul Normal 150-450 [facility] Comment on above: Performed By: #### C BC #### [facility] [id number] Marylou Medellin RBC 4.52 106/ul Critically low 4.70-6.10 [facility] Comment on above: Performed By: #### C BC #### [facility] [id number] Marylou Medellin WBC 6.7 103/ul Normal 4.0-11.0 [facility] Comment on above: Performed By: #### C BC #### [facility] [address] LSPINE WO CONon [...] JANET YARBROUGH Date: 2022-11-03 18:00 Normal [facility] Covid-19 PCR (CVDTB)on 10-09 SARS-CoV-2 (COVID-19) RNA PRASHANT+probe Ql (Unsp spec) Not detected Normal NOT DETECTED [facility] Comment on above: Result Comment: When diagnostic [...] for this test is supported by the [employer] Seal of Health and Human Service's declaration that [...] used). Performed By: #### C VDTB #### [facility] [address] [place] [address] Dr. Marylou Medellin ER URINE PROFILEon 3 Bilirubin Ql (U) Negative Normal NEGATIVE [facility] Comment on above: Performed By: #### U MICRO, ERUR #### [facility] [address] [place] [address] Dr. Marylou Medellin Clarity (U) CLEAR Normal CLEAR [facility] Comment on above: Performed By: #### U MICRO, ERUR #### [facility] [address] [place] [address] Dr. Marylou Medellin Color (U) YELLOW Normal YELLOW [facility] Comment on above: Performed By: #### U MICRO, ERUR #### [facility] [address] [place] [address] Dr. Marylou Medellin ERUAHD A micrscopic examination will be performed if indicated. Normal [facility] Comment on above: Performed By: #### U MICRO, ERUR #### [facility] [address] [place] [address] Dr. Marylou Medellin Glucose Ql (U) Negative Normal NEGATIVE [facility] Comment on above: Performed By: #### U MICRO, ERUR #### [facility] [address] [place] [address] Dr. Marylou Medellin Hemoglobin Ql (U) Negative Normal NEGATIVE [facility] Comment on above: Performed By: #### U MICRO, ERUR #### [facility] [address] [address] [address] Marylou Medellin Ketones Ql (U) TRACE Abnormal NEGATIVE [facility] Comment on above: Performed By: #### U MICRO, ERUR #### [facility] [address] [place] [address] Dr. Marylou Medellin LEUKOCYTES SMALL Abnormal NEGATIVE [facility] Comment on above: Performed By: #### U MICRO, ERUR #### [facility] [address] [address] [address] Marylou Medellin Nitrite Ql (U) Positive Abnormal NEGATIVE [facility] Comment on above: Performed By: #### U MICRO, ERUR #### [facility] [address] [place] [address] Dr. Marylou Medellin pH (U) 5.0 [pH] Normal 5-9 [facility] Comment on above: Performed By: #### U MICRO, ERUR #### [facility] [address] [place] [address] Dr. Marylou Medellin SPEC GRAVITY 1.025 Normal 1.005-<=1.025 [facility] Comment on above: Performed By: #### U MICRO, ERUR #### [facility] [address] [place] [address] Dr. Marylou Medellin UA PROTEIN Negative Normal NEGATIVE/ TRACE [facility] Comment on above: Performed By: #### U MICRO, ERUR #### [facility] [address] [address] [address] Marylou Medellin UR MICRO IND INDICATED Normal [facility] Comment on above: Performed By: #### U MICRO, ERUR #### [facility] [address] [place] [address] Dr. Marylou Medellni Urobilinogen Qn (U) 1.0 {Daniel'U}/dL Normal 0.2 - 1. 0 [facility] Comment on above: Performed By: #### U MICRO, ERUR #### [facility] [address] [place] [address] Dr. Marylou Medellin PROF CHEM 8 (BAS METB)on Anion gap [Moles/Vol] 14.1 mmol/L Normal [facility] Comment on above: Performed By: #### B MP #### [facility] [address] [address] [address] Marylou Medellin Calcium [Mass/Vol] 8.8 mg/dL Normal 8.5-10.1 [facility] Comment on above: Performed By: #### B MP #### [facility] [address] [address] [address] Marylou Medellin Chloride [Moles/Vol] 103 mmol/L Normal 98-107 [facility] Comment on above: Performed By: #### B MP #### [facility] [address] [place] [address] Dr. Marylou Medellin CO2 [Moles/Vol] 27.8 mmol/L Normal 21.0-32.0 [facility] Comment on above: Performed By: #### B MP #### [facility] [address] [place] [address] Dr. Marylou Medellin Creatinine [Mass/Vol] 0.95 mg/dL Normal 0.70-1.30 [facility] Comment on above: Performed By: #### B MP #### [facility] [address] [place] [address] Dr. Marylou Medellin EGFR-AF KYRGYZ >60 Normal >=60 [facility] Comment on above: Performed By: #### B MP #### [facility] [address] [place] [address] Dr. Marylou Medellin EGFR-NON AF KYRGYZ >60 Normal >=60 [facility] Comment on above: Performed By: #### B MP #### [facility] [address] [place] [address] Dr. Marylou Medellin Glucose [Mass/Vol] 117 mg/dL Critically high 74-106 [facility] Comment on above: Performed By: #### B MP #### [facility] [address] [place] [address] Dr. Marylou Medellin Potassium [Moles/Vol] 3.9 mmol/L Normal 3.5-5.1 [facility] Comment on above: Performed By: #### B MP #### [facility] [address] [place] [address] Dr. Marylou Medellin Sodium [Moles/Vol] 141 mmol/L Normal 136-145 [facility] Comment on above: Performed By: #### B MP #### [facility] [address] [address] [address] Marylou Medellin Urea nitrogen [Mass/Vol] 16.0 mg/dL Normal 7.0-18.0 [facility] Comment on above: Performed By: #### B MP #### [facility] [address] [place] [address] Dr. Marylou Medellin Urea nitrogen/Creatinine [Mass ratio] 16.8 mg/mg Normal [facility] Comment on above: Performed By: #### B MP #### [facility] [address] [place] [address] Dr. Marylou Medellin URINE MICROSCOPIC ONLYon BACTERIA LARGE Abnormal NONE SEEN [facility] Comment on above: Performed By: #### U MICRO, ERUR #### [facility] [address] [place] [address] Dr. Marylou Medellin Bacteria identified Cx Nom (U) INDICATED Normal [facility] Comment on above: Performed By: #### U MICRO, ERUR #### [facility] [address] [place] [address] Dr. Marylou Medellin CA OX CRYSTALS FEW Normal [facility] Comment on above: Performed By: #### U MICRO, ERUR #### [facility] [address] [place] [address] Dr. Marylou Medellin CAST SEEN Abnormal NONE SEEN [facility] Comment on above: Performed By: #### U MICRO, ERUR #### [facility] [address] [place] [address] Dr. Marylou Medellin Crystals LM Nom (Urine sed) SEEN Abnormal NONE SEEN [facility] Comment on above: Performed By: #### U MICRO, ERUR #### [facility] [address] [address] [address] Marylou Medellin Epithelial cells LM Ql (Urine sed) FEW Abnormal NONE SEEN /RARE [facility] Comment on above: Performed By: #### U MICRO, ERUR #### [facility] [address] [address] [address] Marylou Medellin HYALINE CAST RARE Normal [facility] Comment on above: Performed By: #### U MICRO, ERUR #### [facility] [address] [address] [address] Marylou Medellin MUCOUS NONE SEEN Normal NONE SEEN [facility] Comment on above: Performed By: #### U MICRO, ERUR #### [facility] [address] [address] [address] Marylou Medellin RBC 0-2 Normal 0-2 [facility] Comment on above: Performed By: #### U MICRO, ERUR #### [facility] [address] [place] [address] Dr. Marylou Medellin WBC 10-20 Abnormal NONE SEEN [facility] Comment on above: Performed By: #### U MICRO, ERUR #### [facility] [address] [place] [address] Dr. Mraylou Medellin Physician Referralon 022 Physician Referral [id number] D:127 Normal [facility] MR head/brain wo conon 04-07 MR head/brain wo con [facility] [place] [address] MRI Report Signed Patient: Janet Cruz MR#: [id number] 13 : 1950 Acct:[id number] Age/Sex: 70 / M ADM Date: 04/07/21 Loc: MR Room: Type: [facility] Attending Dr: Janae Stoddard (Clinic) , [facility] Ordering Provider: Janae Stoddard DO Date of Service: 04/07/21 MR/MR head/brain wo con: ABNORMAL CT BRAIN Copies to: Janae Stoddard DO MRI head 04/07/2021. CLINICAL DATA: Dizziness. Syncope. TECHNIQUE: MRI of the head was performed without contrast. COMPARISON: CT head 12/17/2020 ([facility]). FINDINGS: There is generalized parenchymal volume loss. [...] Pantoja Jr., M.D.04/07/2021 1:08 PM Dictation Location: [place] [address] Transcribed By: [facility] 04/07/21 1308 Dictated By: Wellington Pantoja Jr, MD 04/07/21 1300 Signed By: 04/07/21 1308 [facility] OPERATIVE REPORTon 9 OPERATIVE REPORT [address] [address] OPERATIVE REPORT PATIENT NAME: JANET CRUZ : 1950 MED REC NO: [id number] ROOM: ACCOUNT NO: [id number] ADMIT DATE: 06/19/2019 PROVIDER: Brooklyn López DATE [...] in good condition. [place] LÓPEZ [id number] Doc#: [id number] CC: Normal [facility] Creatinine W/GFR Point of Ca reon 06-19-2019 Creatinine [Mass/Vol] 0.86 mg/dL 0.51 - 1.19 mg/dL [place], [place] GFR Non- >60 >60 mL/min [place] GFR/1.73 sq M predicted among non-blacks MDRD (S/P/Bld) [Vol rate/Area] mL/min/{1.73_m2} >60 mL/min [place] GFR/1.73 sq M predicted among non-blacks MDRD (S/P/Bld) [Vol rate/Area] [place], [place] Comment on above: Average GFR for 60-6 9 years old: 85 mL/min/1.73sq m Chronic Kidney Disease: <60 mL/min/1.73sq m Kidney failure: <15 mL/min/1.73sq m eGFR calculated using average adult body mass. Additional eGFR calculator available at: http://www.[employer]/multiple_crcl_2012.htm POCT Glucoseon 06-19-2019 Glucose [Mass/Vol] 105 mg/dL High 74 - 100 mg/dL [place], [place] Interpretation and review of laboratory results Abnormal [place] POCT INRon 06-19-2019 INR Coag (Bld) [Relative time] 1.1 {INR} [place] Comment on above: Therapeutic Range: Moderate Anticoagulant Intensity: INR = 2.0-3.0 High Anticoagulant Intensity: INR = 2.5-3.5 PT Coag (PPP) [Time] 13.6 s [place], [place] SURGICAL PATHOLOGYon 018 SURGICAL PATHOLOGY Specimen #: [id number] Physician: VALENTE VALENZUELA [facility], [place], [place];[id number] (10/17/2017)Ileum, 45 cm in length, resection (A-I)- [...] a segment of colon with a stricture crhvnxhtpekjd25 cm in length per the provided gross [...] hesitate tocontact the GI Consultation Service at [phone] with questions or ifadditional follow up information becomes available. This case was reviewedin conjunction with the GI pathology fellow, Ollie Padilla M.D.JRG/EW/lh/10-29-2017 Eric Brandon M.D.(Electronic Signature) SPECIMEN SUBMITTEDA: 9 SLIDES [id number] CLINICAL DATAHistory of chronic mesenteric ischemia.Patient ID #: Date of Report: 10/29/2017Date of Procedure: 10/26/2017Date of Receipt: 10/26/2017Submitted by: VALENTE BAUERocation: Diagnostic interpretation performed at [facility], [address] [place] [address]. Normal [facility] Comment on above: Performed By: #### S ####See report for performing lab information. Vital Signs Date Time Vital Sign Value Performing Clinician Facility 04-23-2023 11:20-0400 Blood Pressure Location Gannboby MARTÍNEZ [facility] 04-23-2023 11:20-0400 Diastolic blood pressure 87 mm[Hg] [facility] 04-23-2023 11:20-0400 Heart rate 63 /min Gann SALAM [facility] 04-23-2023 11:20-0400 Mean blood pressure 104 mm[Hg] Gann SALAM [facility] 04-23-2023 11:20-0400 Respiratory rate 12 /min Gann SALAM [facility] 04-23-2023 11:20-0400 SaO2% (BldA) [Mass fraction] 97 % Gann SALAM [facility] 04-23-2023 11:20-0400 Systolic blood pressure 139 mm[Hg] Gann SALAM [facility] 04-23-2023 11:10-0400 Blood Pressure Location Gann SALAM [facility] 04-23-2023 11:10-0400 Diastolic blood pressure 86 mm[Hg] Gann SALAM [facility] 04-23-2023 11:10-0400 Heart rate 67 /min Gann SALAM [facility] 04-23-2023 11:10-0400 Mean blood pressure 105 mm[Hg] Gann SALAM [facility] 04-23-2023 11:10-0400 Respiratory rate 15 /min Gann SALAM [facility] 04-23-2023 11:10-0400 SaO2% (BldA) [Mass fraction] 95 % Gann SALAM [facility] 04-23-2023 11:10-0400 Systolic blood pressure 144 mm[Hg] Gann SALAM [facility] 04-23-2023 11:05-0400 Blood Pressure Location Gann SALAM [facility] 04-23-2023 11:05-0400 Diastolic blood pressure 72 mm[Hg] Gann SALAM [facility] 04-23-2023 11:05-0400 Heart rate 63 /min Gann SALAM [facility] 04-23-2023 11:05-0400 Mean blood pressure 92 mm[Hg] Gann SALAM [facility] 04-23-2023 11:05-0400 Respiratory rate 12 /min Gann SALAM [facility] 04-23-2023 11:05-0400 SaO2% (BldA) [Mass fraction] 96 % Gann SALAM [facility] 04-23-2023 11:05-0400 Systolic blood pressure 133 mm[Hg] Gann SALAM [facility] 04-23-2023 10:55-0400 Body temperature 97.88 [degF] Gann SALAM [facility] 04-23-2023 10:50-0400 Respiratory rate 20 /min Gann SALAM [facility] 04-23-2023 10:45-0400 Respiratory rate 20 /min Gann SALAM [facility] 04-23-2023 10:40-0400 Respiratory rate 20 /min Gann SALAM [facility] 04-23-2023 10:22-0400 Body temperature 98.06 [degF] Gann SALAM [facility] 01-29-2023 10:08-0400 Diastolic blood pressure 77 mm[Hg] Gann SALAM [facility] 01-29-2023 10:08-0400 Heart rate 68 /min Gann SALAM [facility] 01-29-2023 10:08-0400 Mean blood pressure 97 mm[Hg] Gann SALAM [facility] 01-29-2023 10:08-0400 Respiratory rate 15 /min Gann SALAM [facility] 01-29-2023 10:08-0400 SaO2% (BldA) [Mass fraction] 98 % Gann SALAM [facility] 01-29-2023 10:08-0400 Systolic blood pressure 136 mm[Hg] Gann SALAM [facility] 01-29-2023 10:00-0400 Diastolic blood pressure 67 mm[Hg] Gann SALAM [facility] 01-29-2023 10:00-0400 Heart rate 70 /min Gann SALAM [facility] 01-29-2023 10:00-0400 Mean blood pressure 85 mm[Hg] Gann SALAM [facility] 01-29-2023 10:00-0400 Respiratory rate 17 /min Gann SALAM [facility] 01-29-2023 10:00-0400 SaO2% (BldA) [Mass fraction] 97 % Gann SALAM [facility] 01-29-2023 10:00-0400 Systolic blood pressure 120 mm[Hg] Gann SALAM [facility] 01-29-2023 09:55-0400 Diastolic blood pressure 71 mm[Hg] Gann SALAM [facility] 01-29-2023 09:55-0400 Heart rate 77 /min Gann SALAM [facility] 01-29-2023 09:55-0400 Mean blood pressure 91 mm[Hg] Gann SALAM [facility] 01-29-2023 09:55-0400 Respiratory rate 6 /min Gann SALAM [facility] 01-29-2023 09:55-0400 SaO2% (BldA) [Mass fraction] 96 % Gann SALAM [facility] 01-29-2023 09:55-0400 Systolic blood pressure 130 mm[Hg] Gann SALAM [facility] 01-29-2023 09:49-0400 Blood Pressure Location Gann SALAM [facility] 01-29-2023 09:49-0400 Body temperature 97.52 [degF] Gann SALAM [facility] 01-29-2023 09:11-0400 Blood Pressure Location Gann SALAM [facility] 01-29-2023 09:11-0400 Body temperature 97.34 [degF] Gann SALAM [facility] 11-10-2022 08:08-0500 Blood Pressure Location Karina Kimmy [facility] 11-10-2022 08:08-0500 Body temperature 97.16 [degF] Karinarick PoonKimmy [facility] 11-10-2022 08:08-0500 Diastolic blood pressure 74 mm[Hg] Karina Poonmetz [facility] 11-10-2022 08:08-0500 Heart rate 70 /min Karina Oneal [facility] 11-10-2022 08:08-0500 Systolic blood pressure 108 mm[Hg] Karina Oneal [facility] 06-19-2019 12:00-0400 Body Temperature 97.9 [degF] [facility], [place] 06-19-2019 12:00-0400 BP Diastolic 71 mm[Hg] [facility] , [place] 06-19-2019 12:00-0400 BP Systolic 138 mm[Hg] [facility] , [place] 06-19-2019 12:00-0400 Pulse (Heart Rate) 50 /min [facility] [place] 06-19-2019 12:00-0400 Pulse Oximetry 99 % [facility] , [place] 06-19-2019 12:00-0400 Respiratory Rate 12 /min [facility] [place] 06-19-2019 08:19-0400 BMI (Body Mass Index) 54.03 kg/m2 [place] [facility] [place] 06-19-2019 08:19-0400 Body weight 156.49 kg [facility] , [place] 06-19-2019 08:19-0400 Height 170.2 cm [facility] , [place] Encounters Encounter Date Encounter Type Care Provider Facility Start: 04-23-2023 End: 04-23-2023 Patient encounter procedure Gann SALAM [facility] Start: 04-23-2023 End: 04-23-2023 ambulatory Gann SALAM Facility:[facility] Start: 01-29-2023 End: 01-30-2023 ambulatory Gann SALAM Facility:[facility] Start: 01-29-2023 End: 01-29-2023 Patient encounter procedure Gann SALAM [facility] Start: 01-22-2023 End: 04-23-2023 ambulatory Azeem HARPER Facility:[facility] Start: 11-10-2022 End: 11-11-2022 ambulatory Karina Oneal Facility:[facility] Start: 11-10-2022 End: 04-22-2023 Recurring Azeem HARPER [facility] Start: 11-10-2022 End: 11-10-2022 Patient encounter procedure Karina Hannah Kimmy [facility] Start: 11-03-2022 End: 11-04-[address] ANNA WARE . Facility: Start: 09-29-2022 ambulatory Karina A Kimmy Duartejorge ty:[place] Start: 07-05-2022 ambulatory Karina Hannah Kimmy Weaver ty:[place] Start: 06-19-2019 End: 06-19-2019 Patient encounter procedure [facility] Start: 06-19-2019 End: 06-19-2019 Subsequent hospital visit [...] 06-08-2019 Influenza vaccination Flu vaccine (# 1) [place], [place] Start: 2016 Pneumococcal 65+ yea rs Vaccine (1 of 2 - PCV13) Pneumococcal 65+ years Vaccine (1 of 2 - PCV13) [place], [place] Start: 1950 Creatinine monitoring Creatinine mon itoring [place], [place] Start: 1950 Potassium monitoring Potassium monit oring [place] EKG 12 Lead EKG 12 Lead ECG Routine 06/19/2019 8:32 AM EDT [place] Initiate Oxygen Ther apy Protocol Initiate Oxygen Therapy Protocol Respiratory Care Routine Daily until discontinued starting 06/19/2019 [place] Comment on above: Daily until disconti nued starting 06/19/2019 Phase I & II - meter ed glucose Phase I & II - metered glucose Point of Care Testing Routine As Needed until discontinued starting 06/19/2019 [place] Comment on above: As Needed until disc ontinued starting 06/19/2019 End: 06-19-2019 POC CHEM8 INCLUDES CALC. ANION GAP POC CHEM8 INCLUDES CALC. ANION GAP Point of Care Testing Routine One Time for 1 Occurrences starting 06/19/2019 until 06/19/2019 [facility] Comment on above: One Time for 1 Occur rences starting 06/19/2019 until 06/19/2019 Immunizations Immunization Date Immunization Notes Care Provider Fa [facility] 08-24-2022 influenza virus vaccine, unspecified formulation Karina Oneal [facility] 07-18-2021 pneumococcal conjuga te vaccine, 13 valent Karina Oneal [facility] Payers Date Payer Category Payer Unknown [id number] 2019 Unknown [id number] 2019 Unknown [employer] xxxxxxxxxx 2019-Present [phone] [address] [place] [address] xxxxxxxxxx [id number] 2014 Medicare [id number] 2014 Medicare MEDICARE RACTROA D MEDICARE xxxxxxxxxxx 2014-Present [phone] [address] [address] [place] [address] xxxxxxxxxxx [id number] 1950 Unknown [id number] 1951 Unknown [id number] 1951 Unknown [id number] 1950 Unknown [id number] 1951 Unknown [id number] 1951 Unknown [id number] 1950 Unknown [id number] 1950 Unknown [id number] Social History Date Type Detail Facility Start: 06-19-2019 Tobacco smoking stat us NHIS Former smoker [place] Start: 06-19-2019 Alcohol intake Yes [facility] Sex Assigned At Not on file [place] Start: 11-10-2022 Tobacco smoking status Never s moked tobacco (finding) [facility] Tobacco smoking status Never [facility] Medical Equipment Procedure Code Equipment Code Equipment Origin al Text Equipment Identifier Dates Unknown Unknown 04/23/23 Non Biological Unknown FDA Start: 04-23-2023 Functional Status Date Assessment Result Facility 04-23-2023 Functional Status N/A [facility] 01-29-2023 Functional Status N/A [facility] 11-10-2022 Functional Status N/A [facility] Clinical Notes 11-10-2022 to 04-25-2023 Note Date & Type Note Facility 04-25-2023 Note [id number] #1.00CD:127 [facility] 04-23-2023 Evaluation + Plan note Extrac valeria from: Title:CSB post op Author:Luis Antonio Garcia MD Date:04/23/23 Plan Transfer/Discharge: Transfer/Discharge Discharge when meets criteria ( To home ). Extracted from: Title:CSB Preop Author:Luis Antonio Garcia MD Date:04/23/23 Plan [place] [employer] (ASA) physical status classification: Class III. Anesthetic Preoperative Plan: Anesthesia General. [facility]07-17-2023 Hospital Discharge instructions Patient Education [...] provider. Document Revised: 10/13/2022 Document Reviewed: 10/13/2022 [employer] Patient Education 2022 [employer]. 04/23/2023 11:02:58 Colon Polyps Colon Polyps Colon [...] hard liquor (44 mL). General instructions Take uxnv-yjv-qcexsje and prescription medicines only as told by [...] provider. Document Revised: 01/12/2021 Document Reviewed: 01/12/2021 [employer] Patient Education 2022 [employer]. 04/23/2023 11:02:56 Colonoscopy, Care After Surgery Salam (CUSTOM) Colonoscopy Care After Surgery Please read the instructions outlined below and refer to this sheet in the next few weeks. These discharge instructions provide you with general information on caring for [facility] Your doctor may also give you specific [...] Up Care 02/12/2023 09:33:16 With:Azeem HARPER Address: [address] [place] [address]. [address] [place] [address] [facility] ([employer] When:1 to 2 weeks Comments:Call for any problems. [facility]04-26-2023 Note [id number]:127[facility] 01-29-2023 Evaluation + Plan noteExtracted from: Title:CSB post op Author:Luis Antonio Garcia MD Date:01/29/23 Plan Transfer/Discharge: Transfer/Discharge Discharge when meets criteria ( To home ). Extracted from: Title:PHILLYB GA Author:Luis Antonio Garcia MD Date:01/29/23 Plan [place] [employer] (ASA) physical status classification: Class III. Anesthetic Preoperative Plan: Anesthesia General. [facility]04-24-2023 Hospital Discharge instructions Patient Education 01/29/2023 10:01:56 Colonoscopy, Care After Surgery Meredith (CUSTOM) Colonoscopy Care After Surgery Please read the instructions outlined below and refer to this sheet in the next few weeks. These discharge instructions provide you with general information on caring [facility] Your doctor may also give you specific [...] on caring for [facility] Your doctor may also give you specific [...] Up Care 11/10/2022 08:50:59 With:Azeem HARPER Address: [facility] [employer] [address] [place] [address] Business (1) When: Unknown Comments:Call Office to arrange 2 day Prep and repeat colonoscopy less than 3 months [facility]02-03-2023 Hospital Discharge instructions Patient Education [...] including vitamins, herbs, eye drops, creams, and ibxh-vxy-cftcomz medicines. Any problems you or family members [...] 09/21/2001 Document Revised: 07/17/2018 Document Reviewed: 12/05/2016 [employer] Patient Education 2020 [employer]. Follow Up Care 10/04/2022 11:53:39 With:Karina Oneal CNP Address: When:1 to 2 weeks Comments:Following colonoscopy. [facility] Evaluation + Plan note Future Appointments Appointment Date:01/22/2023 08:30:00 AM Scheduled Provider: Location:[facility] Appointment Type:Surgery PAT COVID Testing Appointment Date:01/29/2023 09:30:00 AM Scheduled Provider: Location:[facility] Appointment Type:Surgery FT [facility] Evaluation + Plan note Future Appointments Appointment Date:04/23/2023 10:55:00 AM Scheduled Provider: Location:[facility] Narrative No data available for this section [facility] Hospital Discharge instructions No data available for this section [facility] No data available for this section [facility] Summary Purpose Family History No Family History Records FoundNo Family History Records FoundNo Family History Records FoundNo Family History Records FoundNo Family History Records Found Advance Directives No Advanced Directives Records FoundDocuments on File Type Date 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 DATE CREATED AUTHOR AUTHOR'S ORGANIZ ATION 04/28/2023 [facility] Reason for Visit (unrecogniz ed section and content) Status Reason Specialty Diagnoses / Procedures Referre d By Contact Referred To Contact Diagnoses RETINAL DETACHMENT Procedures [place] OFFICE/OUTPT VISIT,PROCEDURE ONLY VITRECTOMY 25 GAUGE, GAS FLUID EXCHANGE, LASER Brooklyn López MD [address], [address] [place] [address] [facility] Patient Care team informatio n (unrecognized section [...] BE BASED ON THE PRIMARY CLINICAL RECORDS. [facility] [employer] [facility]. provides no warranty or guarantee of the accuracy or completeness of information in this document.
[2024-10-30 19:20] VITALS: BP 183/88; PULSE 77; TEMP 36.6; O2SAT 95; BMI 53.3
--- NOTE | 2024-10-30 19:31 | ED_ITS ---
HPI - Skin/Abscess/Foreign Bdy General Chief complaint: Skin/Abscess/Foreign Body Stated complaint: NECK SCRATCH BLEEDING Time Seen by Provider: 10/30/24 19:30 Source: patient Mode of arrival: walk-in Limitations: no limitations History of Present Illness HPI narrative: 73 year old male presents to the ED for a bleeding wound. States he scratched a mole on the left side of his neck tonight. He has been unable to get the bleeding to stop. He does take Coumadin; he is due for an INR check 11/04/24. States he had a similar issue 2 months ago. Denies fever, chills, weakness, N/T. Denies SOB, dizziness. Related Data Home Medications ?Medication ?Instructions ?Recorded ?Confirmed cilostazol 100 mg tablet 100 mg PO DAILY 08/19/24 10/30/24 dorzolamide 2 % eye drops 2 drp ophthalmic (eye) DAILY 08/19/24 10/30/24 hydrochlorothiazide 25 mg tablet 12.5 mg PO DAILY 08/19/24 10/30/24 latanoprost 0.005 % eye drops 1 drp ophthalmic (eye) QPM 08/19/24 10/30/24 lisinopril 30 mg tablet 30 mg PO DAILY 08/19/24 10/30/24 pravastatin 80 mg tablet 80 mg PO DAILY 08/19/24 10/30/24 trazodone 100 mg tablet 200 mg PO DAILY 08/19/24 10/30/24 venlafaxine 150 mg 150 mg PO BID 08/19/24 10/30/24 capsule,extended release 24 hr (Effexor XR) warfarin 5 mg tablet 10 mg PO DAILY 08/19/24 10/30/24 Previous Rx's ?Medication ?Instructions ?Recorded ciprofloxacin HCl 500 mg tablet 500 mg PO BID 10 days #20 tabs 08/19/24 (Cipro) metronidazole 500 mg tablet 500 mg PO Q12H 10 days #20 tabs 08/19/24 Allergies Allergy/AdvReac Type Severity Reaction Status Date / Time metronidazole (From Flagyl) AdvReac Severe Rash Verified 10/30/24 19:26 vinyl tape AdvReac Mild Rash Uncoded 10/30/24 19:26 Review of Systems ROS Constitutional Denies: fever or chills Cardiovascular Denies: chest pain or lightheadedness Respiratory Denies: shortness of breath Integumentary/Breast Reports: sores Neurological Denies: dizziness PFSH PFSH Social History Little interest or pleasure in doing things: not at all Feeling down, depressed, or hopeless: not at all Exam Constitutional Vital Signs, click to edit/add: Last Vital Signs Temp 98 F 10/30/24 19:20 Pulse 77 10/30/24 19:20 Resp 18 10/30/24 19:20 BP 152/71 H 10/30/24 20:10 Pulse Ox 95 10/30/24 19:20 O2 Del Method Room Air 10/30/24 19:20 Common normals: no apparent distress and oriented x3 General appearance: cooperative Eye Common normals: conjunctivae normal and no scleral icterus Neck & C-Spine Common normals: supple Other: Mild bleeding from a 2-3 mm mole area on the left side of the neck. No surrounding swelling or bruising noted. Chest Chest: symmetrical chest wall rise Respiratory Common normals: normal respiratory effort Effort & inspection: able to speak in complete sentences and symmetric chest movement Cardio Common normals: regular rate Neuro Common normals: oriented x3 and moves all extremities Sensorium/orientation: awake and alert Speech: speech normal Gait (neuro): normal gait Course Vital Signs Vital signs: Vital Signs Temperature 98 F 10/30/24 19:20 Pulse Rate 77 10/30/24 19:20 Respiratory Rate 18 10/30/24 19:20 Blood Pressure 183/88 H 10/30/24 19:20 Pulse Oximetry 95 10/30/24 19:20 Oxygen Delivery Method Room Air 10/30/24 19:20 Temperature 98 F 10/30/24 19:20 Pulse Rate 77 10/30/24 19:20 Respiratory Rate 18 10/30/24 19:20 Blood Pressure 152/71 H 10/30/24 20:10 Pulse Oximetry 95 10/30/24 19:20 Oxygen Delivery Method Room Air 10/30/24 19:20 MDM - Skin/Abscess/Foreign Bdy MDM Narrative Medical decision making narrative: Gel-foam was applied to the bleeding area. The bleeding was controlled prior to discharge. His INR was 4.4. He was advised to hold his Coumadin for the next 3 days and to have it rechecked on 11/02/24 or 11/03/24. Follow up with pcp for a recheck, further evaluation and treatment. Medical Records Attestation: I reviewed the patient's medical records. Lab Data Attestation: I reviewed the patient's lab results. Labs: Lab Results 10/30/24 Range/Units 19:45 PT 40.3 H* (9.0-11.6) sec INR 4.40 H* Discharge Plan Discharge Chief Complaint: Skin/Abscess/Foreign Body Clinical Impression: Bleeding from wound, Elevated INR Patient Disposition: Home, Self-Care Time of Disposition Decision: 20:53 Condition: Good Mode of Transportation: Private Vehicle Prescriptions / Home Meds: No Action venlafaxine [Effexor XR] 150 mg capsule,extended release 24hr 150 mg PO BID pravastatin 80 mg tablet 80 mg PO DAILY cilostazol 100 mg tablet 100 mg PO DAILY lisinopril 30 mg tablet 30 mg PO DAILY hydrochlorothiazide 25 mg tablet 12.5 mg PO DAILY trazodone 100 mg tablet 200 mg PO DAILY dorzolamide 2 % drops 2 drp ophthalmic (eye) DAILY latanoprost 0.005 % drops 1 drp ophthalmic (eye) QPM warfarin 5 mg tablet 10 mg PO DAILY Rx Instructions: takes 10mg 6 days a week and 7.5 1 day a week ciprofloxacin HCl [Cipro] 500 mg tablet 500 mg PO BID 10 Days Qty: 20 0RF metronidazole 500 mg tablet 500 mg PO Q12H 10 Days Qty: 20 0RF Print Language: Tuvaluan Instructions: Elevated INR (ED) Additional Instructions: Return to the ER for worsening symptoms. Your INR was 4.4 today. Hold your Coumadin for the next 3 days; have your INR rechecked on Sunday. Leave the Gelfoam dressing in place for 48 hours. Referrals: Jasper Ware MD [Primary Care Provider] - 1 week
[2024-10-30 20:10] VITALS: BP 152/71
[2024-10-30] MEDS: SURGIFOAM GEL SPONGE SIZE 100 1 EACH TOPICAL (20:24)
[2024-10-30 20:43] LABS: Prothrombin Time 40.3 sec (9.0-11.6)
[2024-10-30 21:13] VITALS: BP 145/89
== END 2024-10-30 21:16 | disposition home or self-care (01) ==
PROVIDERS: Nurse Practitioner Family; Emergency Provider Emergency Medicine; PCP Family Medicine
DX: R58 Hemorrhage, not elsewhere classified (principal); R79.1 Abnormal coagulation profile; Z79.01 Long term (current) use of anticoagulants
CPT/HCPCS: 36415; 85610; 99283